=== PATIENT | female | born 1955 | race Hispanic/Latino ===

== ENCOUNTER 2016-06-14 09:13 | Emergency (ER) | payer MEDICARE, OTHER ==
[~2016-06-14 09:13] MED LIST: ASPI-973 PO; BUPR150T12 PO; CARV25TA2 PO; GABA-500 PO; INSU100C8 SUBQ; INSU100V7 SUBQ; LEVO50TA6 PO; MECL-114 PO; MONT10TA23 PO; NORT25CA PO; OMEP20CA11 PO; PARO40TA3 PO; PROC5TAB PO; ROPI0.252 PO; ROSU40TA PO; SEVE800T10 PO
[2016-06-14 09:17] VITALS: BP 142/58; PULSE 91; RESP 24; O2SAT 88
--- NOTE | 2016-06-14 09:40 | ED.REPORT ---
HPI-Headache Date of Service Jun 14, 2016 ED Provider: Carlos Ulrich MD Ms. 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 She presents with her who aids her in completing the subjective history of present illness. She reports uncontrollable tongue biting on the right lateral portion of her tongue since October. Since then she has lived with the pain up until 10 days ago, at which point she states that the pain is now 10 out of 10 and has migrated over the course of those 10 days to her right side of her face, ear and temporal region. She states the entire area is very tender to the touch. She describes the pain as 10 out of 10, sharp and constant. She denies fevers, chills, nausea, vomiting, chest pain, abdominal pain, constipation diarrhea. She reports nagging cough for 2 weeks, mild shortness of breath, and increased pain on the right side of her head. Of note she states that she did have a fall where she hit the right side of her head roughly 10 days ago, however she states that the pain was present before the fall. She receives dialysis Saturday and Saturday, has cardiology appointment with Dr. Lawler's office today, and pulmonology in [place] tomorrow , and is due to see the neurologist on the . Nursing Notes Stated Complaint: R SIDE FACE PAIN/COUGH Chief Complaint: General Complaint Nursing Notes Reviewed: Yes Allergies: Coded Allergies: codeine (Verified Allergy, Mild, 06/14/16) hydrocodone (Verified Allergy, Unknown, 06/14/16) Scheduled Aspirin (Aspirin) 81 Mg Tablet 81 MG PO DAILY Bupropion ER (Bupropion ER) 150 Mg Tablet.er 150 MG PO BID Carvedilol (Carvedilol) 25 Mg Tablet 25 MG PO BID Gabapentin (Gabapentin) 100 Mg Capsule 100 MG PO DAILY Insulin Glargine (Lantus U100 Insulin Vial) 100 Unit/Ml Vial 28 UNIT SUBQ HS Levothyroxine (Levothyroxine) 50 Mcg Tablet 50 MCG PO DAILY Montelukast (Montelukast) 10 Mg Tablet 10 MG PO HS Nortriptyline (Nortriptyline) 25 Mg Capsule 25 MG PO HS Omeprazole (Omeprazole) 20 Mg Capsule.dr 20 MG PO DAILY Paroxetine (Paroxetine) 40 Mg Tablet 40 MG PO HS Ropinirole (Ropinirole) 0.25 Mg Tablet 0.25 MG PO TID Rosuvastatin Calcium (Crestor) 40 Mg Tablet 40 MG PO DAILY Sevelamer HCl (Renagel) 800 Mg Tablet 800 MG PO TID Scheduled PRN Prochlorperazine Maleate (Prochlorperazine) 5 Mg Tablet 5 MG PO Q8 PRN PRN For Nausea/Vomiting Miscellaneous Medications Insulin Aspart (NovoLOG U100 Insulin Vial) 100 U/Ml U 1 UNIT SUBQ Meclizine (Bonine) 25 Mg Tab.chew 25 MG PO General Time Seen by MD: 09:10 Chief Complaint Headache, Other (cough) Sudden in Onset?: No Onset Occurred: More than a week ago... (2 weeks) Past Medical History Smoking History Former Smoker Review of Systems A comprehensive review of systems was conducted with the patient and found to be negative except as above in the History of Present Illness. Physical Exam General: Elderly lady lying in bed in moderate distress, obese, well-nourished, appropriately interactive HEENT: Normocephalic, atraumatic. Right temperal region, lower right mandibular region, right zygomatic arch all very tender to palpation. External ears without defect. Pupils equal, round, and reactive to light and accommodation. Anicteric sclerae, moist conjunctivae, and no lid lag. Oropharynx free of erythema and cobble stoning with moist mucosa. Vision loss in left eye. Right sided glossal lesion, anterior roughly the size of a BB with equal depth very tender to palpation. Neck: Supple with full range of motion. No jugular venous distension. No bruits. No lymphadenopathy or thyromegaly. Cardiovascular: Tachycardic rate and rhythm with no murmurs, rubs, or gallops appreciated Pulmonary: Clear to auscultation bilaterally with no crackles, or rhonchi. Very mild wheezes present. Normal respiratory effort with no use of accessory muscles.Cough present. Abdomen: Bowel tones present. Soft, nontender, nondistended. No hepatosplenomegaly or masses appreciated. Extremities: No clubbing, cyanosis, edema, or lymphadenopathy appreciated. Skin: Normal temperature, turgor, and texture; no rash, ulcers, or subcutaneous nodules appreciated. Neurological: Cranial nerves grossly intact. Normal muscle strength, tone, and bulk. Patient suffers from an unspecified dyskinesia 2nd to Reglan side- effect. Psychiatric: Normal mood and affect. Alert and oriented to person, place, and time. Initial Vital Signs Vital Signs (First) Date Time Temp Pulse Resp B/P Pulse Ox O2 Delivery O2 Flow Rate FiO2 06/14/16 09:17 36.3 91 24 142/58 88 Room Air 06/14/16 10:07 1 Interpretation & Diagnostics Lab Results Interpretation Result Diagram: 06/14/16 1000 06/14/16 1140 Test 06/14/16 10:00 06/14/16 11:40 White Blood Count 11.8th/mm3 (3.8-10.1) Red Blood Count 4.83mil/mm3 (3.90-5.20) Hemoglobin 12.8g/dL (12.0-15.6) Hematocrit 39.0% (35.0-46.0) Mean Corpuscular Volume 80.7fL (81-100) Mean Corpuscular Hemoglobin 26.5pg (27.0-35.0) Mean Corpuscular Hemoglobin Concent 32.8% (32.0-37.0) Red Cell Distribution Width 17.3% (12.3-15.4) Platelet Count 170bil/L (150-400) Neutrophils (%) (Auto) 79.8% (40-74) Lymphocytes (%) (Auto) 12.6% (14-46) Monocytes (%) (Auto) 6.7% (4-12) Eosinophils (%) (Auto) 0.5% (0-5) Basophils (%) (Auto) 0.1% (0-3) Erythrocyte Sedimentation Rate 9mm/hr (0-40) Hold Eaton Top Tube Received (Received) Sodium Level 133mEq/L (134-144) Potassium Level 4.0mEq/L (3.5-5.2) Chloride Level 93mEq/L (97-108) Carbon Dioxide Level 24mmol/L (18-29) Blood Urea Nitrogen 16mg/dL (8-27) Creatinine 2.48mg/dL (0.57-1.00) Estimat Glomerular Filtration Rate 28mL/min (>59) Glucose Level 123mg/dL (60-99) Calcium Level 8.7mg/dL (8.5-10.1) Re-Eval/Medical Decision Med Decision/Clinical Course Ms. 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 On physical exam patient exhibited severe tenderness to palpation on her temporal region on the right mandibular region on the right zygomatic on the right the right side of her tongue. Differential diagnosis includes: Subarachnoid hemorrhage, infectious etiology from nonhealing glossal wound, temporal arteritis, mass effect, irregular rate, neuropathic pain, traumatic etiology. CBC, BMP, ESR, IV fluids, CT head without contrast, 10 dexamethasone, 30 Toradol , 675 acetaminophen, 10 IV Benadryl. After treatments patient feels drowsy but the pain is between 2 and 5 out of 10, she states it is tolerable. CT head without contrast was negative for intracranial abnormalities. And her sedimentation rate was normal. Her white count is only partially elevated at 11.8 with a minor left shift 79.8. Her vitals are all within normal limits. These findings do not suggest active infection, temporal arteritis, subarachnoid hemorrhage. This is reassuring now that her vitals are stable and subjectively her pain has been treated with believe she is safe to go home. Her primary care physician Dr. Burks suggested Tylenol 3 for home use however she has a codeine allergy. Advised to follow-up with primary care physician and was given detailed return instructions if symptoms worsen. Discharge & Departure Impression: Primary Impression: Headache Headache type: unspecified Headache chronicity pattern: unspecified pattern Intractability: not intractable Qualified Code: R51 - Headache Disposition: Home Discharge Condition All VS Reviewed: Yes Condition: Stable Patient Instructions: Acute Headache (ED) Additional Instructions: During your visit to [facility] Emergency Department we obtained blood work for infectious markers, hemoglobin levels, and electrolytes. We also obtained high resolution imaging of your brain. All your lab values were within normal limits and your imaging showed no acute processes or abnormalities. During your emergency department visit you were treated with IV steroids dexamethasone, IV diphenhydramine (Benadryl), IV Toradol for inflammation, 675 mg Tylenol by mouth. Your vitals are stable and we believe it is safe for you to go home. If your headache worsens in anyway, or you pass out, have vision changes, fever and chills, call emergency services or contact your primary care physician for further care. Do not hesitate to call emergency services or your primary care physician if you experience any of the following. -High unrelenting fevers. -Uncontrolled vomiting. -Severe hypertension. -Syncope or loss of consciousness. -Chest pain or severe shortness of breath. Follow up with your primary care physician in 1-2 weeks time following your emergency department visit for medication checks and general well-being. Referrals: Neal Burks MD (PCP) Attending Statement The patient was seen and examined together with Dr. Sarmiento on 06/14/16 and I agree with the history, exam and plan as outlined in the note above. copies to: Neal Burks MD, COREY P DO Jun 14, 2016 09:40 Carlos Ulrich MD Jun 14, 2016 20:36
[2016-06-14] MEDS ORDERED: 0.9% Sodium Chloride 1,000 ML IV ONE (09:57)
[2016-06-14] MEDS ORDERED: Dexamethasone 10 mg/mL Inj IVPUSH ONE (10:00)
[2016-06-14 10:07] VITALS: BP 129/61; PULSE 90; RESP 18; O2SAT 97
[2016-06-14 10:09] VITALS: BP 129/61; PULSE 90; RESP 18; O2SAT 96
[2016-06-14 10:46] LABS: BASOPHILS % (AUTO) 0.1 % (0-3); EOSINOPHILS % (AUTO) 0.5 % (0-5); MONOCYTES % (AUTO) 6.7 % (4-12); Mean Corpuscular Hemoglobin 26.5 pg (27.0-35.0); Mean Corpuscular Volume 80.7 fL (81-100); NEUTROPHILS % (AUTO) 79.8 % (40-74); Platelet Count 170 bil/L (150-400)
--- NOTE | 2016-06-14 10:59 | DRSVH ---
PROCEDURE: CT BRAIN WITHOUT CONTRAST ([id number]) INDICATIONS: Headache TECHNIQUE: Noncontrast 4.5 mm thick angled axial sections acquired from the foramen magnum to the vertex, with c oronal reformats. COMPARISON: None. FINDINGS: Image quality: Significantly limited secondary to patient motion. CSF spaces: Basal cisterns are patent. No extra-axial fluid collections. Ventricles are normal in size and shape. Brain: No midline shift. No intracranial masses or hemorrhage. Tran-white matter interface is norm al. Skull and face: Calvarium and visualized facial bones are intact, without suspicious lesions. Sinuses: Visualized sinuses and mastoids are clear. IMPRESSION: No gross acute intracranial disease process within limitations related to patient motion . Dictated by: Shannon Borden MD, PhD on 06/14/2016 at 10:56 Approved by: Shannon Borden MD, PhD on 06/14/2016 at 10:57
[2016-06-14 11:28] LABS: ERYTHROCYTE SEDIMENTATION RATE 9 mm/hr (0-40)
[2016-06-14 12:42] VITALS: BP 123/91; PULSE 99; RESP 20; O2SAT 92
[2016-06-14 12:44] VITALS: BP 123/91; PULSE 99; RESP 20; O2SAT 92
== END 2016-06-14 12:03 | disposition home or self-care (01) ==
LOC: SED 09:13
DX: R51 Headache (principal); R05 Cough; R06.02 Shortness of breath; E11.43 Type 2 diabetes mellitus with diabetic autonomic (poly)neuropathy; H40.9 Unspecified glaucoma; H54.12 Blindness, left eye, low vision right eye; E11.22 Type 2 diabetes mellitus with diabetic chronic kidney disease; N18.6 End stage renal disease; E88.81 Metabolic syndrome and other insulin resistance; R25.8 Other abnormal involuntary movements; Z99.2 Dependence on renal dialysis; Z87.891 Personal history of nicotine dependence; Z79.82 Long term (current) use of aspirin; Z79.4 Long term (current) use of insulin; Z88.5 Allergy status to narcotic agent
CPT/HCPCS: 36415; 70450; 80048; 85025; 85651; 96361; 96372; 96374; 96375; 99285; J1100; J1200; J7030

== ENCOUNTER 2016-06-15 09:35 | Emergency (ER) | payer MEDICARE, OTHER ==
[~2016-06-15] VITALS: Ht 160 cm; Wt 91.4 kg
[2016-06-15 09:36] VITALS: PULSE 87; RESP 15; O2SAT 96
--- NOTE | 2016-06-15 09:48 | ED.REPORT ---
HPI-General Illness Date of Service Jun 15, 2016 ED Provider: Dominic Bullock MD Pt is a 60 y/o female w/ a hx of hypothyroid, HTN, asthma, ESRD on hemodialysis (, , Sat), diabetes, presenting to the ED c/o bilateral lower rib pain secondary to a fall in shower last night. She has been experiencing a progressively worsening lower rib pain which is worse with inspiration ever since her fall. She c/o associated pleuritic pain, chronic SOB which is being evaluated by a it service delivery manager, chronic nausea on Reglan. Pt denies fever, chills , abdominal pain, vomiting, diaphoresis. She came in yesterday due to right sided headache which was radiating down her jaw and a CT brain yesterday was negative. Nursing Notes Stated Complaint: FALL Chief Complaint: Multiple Trauma/Fall Nursing Notes Reviewed: Yes Allergies: Coded Allergies: codeine (Verified Allergy, Mild, 06/14/16) hydrocodone (Verified Allergy, Unknown, 06/14/16) Scheduled Aspirin (Aspirin) 81 Mg Tablet 81 MG PO DAILY Bupropion ER (Bupropion ER) 150 Mg Tablet.er 150 MG PO BID Carvedilol (Carvedilol) 25 Mg Tablet 25 MG PO BID Gabapentin (Gabapentin) 100 Mg Capsule 100 MG PO DAILY Insulin Glargine (Lantus U100 Insulin Vial) 100 Unit/Ml Vial 28 UNIT SUBQ HS Levothyroxine (Levothyroxine) 50 Mcg Tablet 50 MCG PO DAILY Montelukast (Montelukast) 10 Mg Tablet 10 MG PO HS Nortriptyline (Nortriptyline) 25 Mg Capsule 25 MG PO HS Omeprazole (Omeprazole) 20 Mg Capsule.dr 20 MG PO DAILY Paroxetine (Paroxetine) 40 Mg Tablet 40 MG PO HS Ropinirole (Ropinirole) 0.25 Mg Tablet 0.25 MG PO TID Rosuvastatin Calcium (Crestor) 40 Mg Tablet 40 MG PO DAILY Sevelamer HCl (Renagel) 800 Mg Tablet 800 MG PO TID Scheduled PRN Prochlorperazine Maleate (Prochlorperazine) 5 Mg Tablet 5 MG PO Q8 PRN PRN For Nausea/Vomiting Miscellaneous Medications Insulin Aspart (NovoLOG U100 Insulin Vial) 100 U/Ml U 1 UNIT SUBQ Meclizine (Bonine) 25 Mg Tab.chew 25 MG PO General Time Seen by MD: 09:44 Chief Complaint Other (Rib pain) Hx Obtained From: Patient Arrived By: Walk-in Sudden in Onset?: Yes Onset Occurred: 9 - 12 hours ago Symptom Duration: Since onset Caused by: Fall on ground Location: : Chest (rib) Quality: Painful, Pleuritic Severity: Current: Moderate Severity: Maximum: Moderate Recent Healthcare: Recent doctor visit Past Medical History Past Medical History Hypothyroid Gastroparesis Hypertension Asthma ESRD on hemodialysis (, , Sat) Diabetes Chronic nausea on Reglan Tardive dyskinesia from chronic Reglan use Chronic shortness of breath Anxiety Depression Past Surgical History Cataract AV fistula Smoking History Former Smoker Social History Alcohol Use: Denies alcohol use Drug Use: Denies drug use Ambulatory Status Independent Review of Systems Full Review of Systems Constitutional: Denies: Chills, Fever Respiratory: Reports: Pleuritic pain, Shortness of breath Cardiovascular: Reports: Chest pain (rib) GI: Reports: Nausea, Denies: Abdominal pain, Vomiting Skin: Denies Diaphoresis Complete sys rev & neg: except as marked. Physical Exam Vital Signs Vital Signs Date Time Temp Pulse Resp B/P Pulse Ox O2 Delivery O2 Flow Rate FiO2 06/15/16 11:11 36.2 89 14 144/77 100 Room Air 06/15/16 09:36 35 87 15 96 Room Air Initial VS: Reviewed, Vital signs normal Head / Eyes: Atraumatic, Normocephalic, PERRL ENT: Mucous membranes moist, Conjunctiva normal, No scleral icterus Neck: Supple, Non-tender, Full range of motion Cardiovascular: Regular rate & rhythm, Heart sounds normal, Intact distal pulses Extremities: Vascular intact, Neuro intact, No swelling, No tenderness Skin: Warm, Dry, No cyanosis Neurologic: Alert, Oriented, Nonfocal Psychiatric: Mood/affect normal, Behavior normal, Normal thought content General/Constitutional: Awake, Alert, No acute distress, Cooperative, Not toxic appearing Appearance / Presentation: Positive: Obese, morbidly Respiratory / Chest: Atraumatic, Breath sounds NL, Breath sounds = bilat, No respiratory distress, No rales, No rhonchi, No wheezing, No retractions, No chest wall deformity Pain about costal margin Interpretation & Diagnostics ECG Interpretation ECG Interpretation: Sinus rhythm rate 87 Anterior Q waves No prior EKG available for comparison Time: 10:38 Interpreted by: ED physician Normal ECG Interpretation: No acute ischemic changes, Normal axis, Normal intervals X-Ray Chest Interpretation Chest Xray Interpretation: IMPRESSION: Small pleural effusions and mid/basilar airspace opacities consistent with compressive atelectasis or pneumonia. Correlate clinically. Dictated by: Jc Hernandez RRA Interpreted: Shannon Borden MD on 06/15/2016 at 11:09 Transcribed by: ELVIA on 06/15/2016 at 11:11 View: Portable, AP & lat Interpretation / Wet Read by: Interpret - Radiologist Re-Eval/Medical Decision Med Decision/Clinical Course Pt is a 60 y/o female w/ a hx of hypothyroid, HTN, asthma, ESRD on hemodialysis (, , Sat), diabetes, presenting to the ED c/o bilateral lower rib pain secondary to a fall in shower last night. Upon arrival patient was afebrile stable vital signs in no apparent distress. She has reproducible pain upon palpation of her lateral ribs on both sides. Presentation most consistent with musculoskeletal etiology. She is without tachycardia or hypoxia and the nature of her presentation is not suggestive of acute pulmonary embolism. Her over, she has no calf swelling or tenderness suggestive of DVT. I do not feel that workup for pulmonary embolism is indicated at this time. Her history and presentation is unconvincing for acute coronary syndrome as a cause of her pain and I do not feel that cardiac workup is immediately indicated. Screening EKG did not demonstrate any acute ischemic changes. Chest x-ray was obtained as above and demonstrated markedly decreased lung volumes with significant right fatty tissue. She did have atelectasis but there is no obvious focal consolidation and she was without cough, fever, chills or other symptoms suggestive of pneumonia. Her nausea was treated with Zofran and she was given Tylenol for pain. She reports improvement. At this time I feel she is appropriate for discharge home. She has not been advised to sit up in bed, take deep breaths and take Tylenol as needed for pain. Follow-up and return precautions were reviewed in detail and she was discharged in good condition. Source of Hx: Old records Time of Eval: 11:16 Patient Status: Condition improved, Pain improved Re-Evaluation/Progress Note: Pt rechecked. Discussed negative imaging results. Informed pt of plan for treatment. Pt understands and agrees with plan for treatment. F/U and RTER warnings given. All questions addressed. Counseled Regarding: Diagnosis, Need for follow-up, When/why to return to ED Discharge & Departure Primary Impression: Musculoskeletal chest pain Additional Impressions: Fall from ground level End-stage renal disease on hemodialysis Bilateral pleural effusion Disposition: Home Discharge Condition All VS Reviewed: Yes Condition: Stable Patient Instructions: Chest Pain (ED), Pleural Effusion (ED) Additional Instructions: Thank you for seeking care at emergency room. It is difficult for us to make definitive diagnoses in the ED but we believe that you are experiencing musculoskeletal chest pain which may be related to your pleural effusions. Our primary goal today in the ED was to evaluate you for any life-threatening conditions. Your evaluation was reassuring. There was no signs of rib fracture on the chest x-ray. Keep your follow-up appointment with your Attenuator today. Discuss today's visit at that time. You should return to the ED immediately if you develop fevers, vomiting, cough, worsening shortness of breath, worsening chest pain, profuse sweating, lightheadedness, weakness or any other concerning signs or symptoms. Thank you for letting us partake in your care today. Referrals: Neal Burks MD (PCP) Scribe Attestation Portions of this note were transcribed by Bernabe Daniel. I, Dr. Bullock personally performed the history, physical exam and medical decision-making; I reviewed and confirmed the accuracy of the information in the transcribed note. Signed by Kiel Burr, 06/15/16 - 1100 copies to: Neal Burks MD, Beck O MD Jun 15, 2016 09:48 BERNABE DANIEL Jun 15, 2016 09:53 BERNABE DANIEL Jun 15, 2016 09:53
[2016-06-15] MEDS ORDERED: Ondansetron 8 mg ODT Tablet PO ONE (11:00)
[2016-06-15 11:11] VITALS: BP 144/77; PULSE 89; RESP 14; O2SAT 100
--- NOTE | 2016-06-15 11:11 | DRSVH ---
PROCEDURE: X-RAY CHEST, TWO VIEWS ([id number]) INDICATIONS: rib pain/fall TECHNIQUE: 2 views of the chest were acquired. COMPARISON: [facility], CR, XR CHEST 2VW, 03/20/2016, 11:07. FINDINGS: Surgical changes and devices: None. Lungs and pleura: Lung volumes are low and there is mid/basilar bilateral airspace opacities. Small pleural effusions bilaterally. No pneumothorax. Mediastinum: Mediastinal contours are normal. Heart size is normal. Bones and chest wall: No suspicious bony abnormalities. Soft tissues appear unremarkable. IMPRESSION: Small pleural effusions and mid/basilar airspace opacities consistent with compressive at electasis or pneumonia. Correlate clinically. Dictated by: Jc Hernandez RRA Interpreted: Shannon Borden MD on 06/15/2016 at 11:09 Transcribed by: ELVIA on 06/15/2016 at 11:11 Approved by: Shannon Borden MD, PhD on 06/15/2016 at 16:45
[2016-06-15 12:04] VITALS: BP 144/77; PULSE 89; RESP 14; O2SAT 100
== END 2016-06-15 12:04 | disposition home or self-care (01) ==
LOC: SED 09:35
DX: R07.89 Other chest pain (principal); N18.6 End stage renal disease; J90 Pleural effusion, not elsewhere classified; W18.2XXA Fall in (into) shower or empty bathtub, initial encounter; Y93.E1 Activity, personal bathing and showering; Y92.9 Unspecified place or not applicable; Y99.8 Other external cause status; E03.9 Hypothyroidism, unspecified; I12.0 Hypertensive chronic kidney disease with stage 5 chronic kidney disease or end stage renal disease; J45.909 Unspecified asthma, uncomplicated; E11.43 Type 2 diabetes mellitus with diabetic autonomic (poly)neuropathy; K31.84 Gastroparesis; Z87.891 Personal history of nicotine dependence; Z88.5 Allergy status to narcotic agent; Z99.2 Dependence on renal dialysis; Z79.82 Long term (current) use of aspirin; Z79.4 Long term (current) use of insulin
CPT/HCPCS: 71020; 93005; 99284; G0463

== ENCOUNTER 2016-10-30 10:10 | Inpatient (IN) | payer MEDICARE, OTHER ==
[2016-10-30] VITALS (9 sets, daily range): BP systolic 132–171; BP diastolic 70–93; PULSE 64–99; RESP 17–25; O2SAT 88–99
[~2016-10-30] VITALS: Ht 160 cm; Wt 78.2 kg
--- NOTE | 2016-10-30 10:27 | ED.REPORT ---
HPI-General Illness Date of Service Oct 30, 2016 ED Provider: Galindo Valle Pt is a 60 y/o female w/ a hx of hypothyroid, HTN, asthma, ESRD on hemodialysis (, , Sat), diabetes, presenting to the ED due to diffuse itching and dyscinesia for the past month. C/o associated chronic cough. She has been on dialysis for [address] [place] in [place]. He has given her medication for itching including Benadryl, nasal spray and Nanci, none of which have been effective. The patient hasn't been sleeping due to itchiness. She denies abdominal pain, rash, or any other medication change. Nurses are unable to get a blood pressure because she is itching so much. She uses [facility] pharmacy in [facility]. Nursing Notes Stated Complaint: ITCHING, COUGHING Chief Complaint: General Complaint Nursing Notes Reviewed: Yes Allergies: Coded Allergies: codeine (Verified Allergy, Mild, 06/14/16) hydrocodone (Verified Allergy, Unknown, 06/14/16) Scheduled Aspirin (Aspirin) 81 Mg Tablet 81 MG PO DAILY Bupropion ER (Bupropion ER) 150 Mg Tablet.er 150 MG PO BID Carvedilol (Carvedilol) 25 Mg Tablet 25 MG PO BID Gabapentin (Gabapentin) 100 Mg Capsule 100 MG PO DAILY Insulin Glargine (Lantus U100 Insulin Vial) 100 Unit/Ml Vial 28 UNIT SUBQ HS Levothyroxine (Levothyroxine) 50 Mcg Tablet 50 MCG PO DAILY Montelukast (Montelukast) 10 Mg Tablet 10 MG PO HS Nortriptyline (Nortriptyline) 25 Mg Capsule 25 MG PO HS Omeprazole (Omeprazole) 20 Mg Capsule.dr 20 MG PO DAILY Paroxetine (Paroxetine) 40 Mg Tablet 40 MG PO HS Ropinirole (Ropinirole) 0.25 Mg Tablet 0.25 MG PO TID Rosuvastatin Calcium (Crestor) 40 Mg Tablet 40 MG PO DAILY Sevelamer HCl (Renagel) 800 Mg Tablet 800 MG PO TID Scheduled PRN Prochlorperazine Maleate (Prochlorperazine) 5 Mg Tablet 5 MG PO Q8 PRN PRN For Nausea/Vomiting Miscellaneous Medications Insulin Aspart (NovoLOG U100 Insulin Vial) 100 U/Ml U 1 UNIT SUBQ Meclizine (Bonine) 25 Mg Tab.chew 25 MG PO General Time Seen by MD: 10:22 Chief Complaint Other (itching) Hx Obtained From: Patient, Spouse Arrived By: Walk-in Sudden in Onset?: Yes Onset Occurred: More than a week ago... (1 month) Symptom Duration: Since onset Severity: Current: No pain currently Associated with: Reports: Cough, Itching Pertinent Negative: Pt denies other symptoms Recent Healthcare: Recent doctor visit Similar Sx Previous: Yes Past Medical History Past Medical History Hypothyroid Gastroparesis Hypertension Asthma ESRD on hemodialysis (, , Sat) Diabetes Chronic nausea on Reglan Tardive dyskinesia from chronic Reglan use Chronic shortness of breath Anxiety Depression Past Surgical History Cataract AV fistula Smoking History Former Smoker Social History Alcohol Use: Denies alcohol use Drug Use: Denies drug use Ambulatory Status Independent Review of Systems dyscinesia Full Review of Systems Respiratory: Reports: Non-productive cough GI: Denies: Abdominal pain Skin: Reports Itching, Denies Rash Allergy / Immune: Reports: Itching Complete sys rev & neg: except as marked. Physical Exam Vital Signs Vital Signs Date Time Temp Pulse Resp B/P Pulse Ox O2 Delivery O2 Flow Rate FiO2 10/30/16 15:56 94 24 151/70 99 Nasal Cannula 2 10/30/16 12:20 8 10/30/16 10:41 95 20 132/93 88 Room Air 10/30/16 10:20 36.4 Initial VS: Reviewed General/Constitutional: Awake, Alert Appearance / Presentation: Positive: Obese Head / Eyes: Atraumatic, Normocephalic, PERRL, EOMI Respiratory / Chest: Atraumatic, No respiratory distress Cardiovascular: Heart rate NL, Regular rhythm, Heart sounds NL Abdomen: Atraumatic, Soft, Non-tender Upper Extremities Upper Extremity / MS: Atraumatic, Neurologic intact right upper arm AV fistula Lower Extremity / Pelvis / MS: Atraumatic, Inspection NL, No deformity Skin: No rash tardive dyscinesia itching everywhere no rash in fingerwebs or skin Neurologic: Oriented X3, Speech NL Interpretation & Diagnostics Lab Results Interpretation Result Diagram: 10/30/16 1042 10/30/16 1050 Test 10/30/16 10:42 10/30/16 10:50 6/20/17 15:22 White Blood Count 5.5th/mm3 (3.8-10.1) Red Blood Count 4.50mil/mm3 (3.90-5.20) Hemoglobin 12.1g/dL (12.0-15.6) Hematocrit 37.4% (35.0-46.0) Mean Corpuscular Volume 83.1fL (81-100) Mean Corpuscular Hemoglobin 26.9pg (27.0-35.0) Mean Corpuscular Hemoglobin Concent 32.4% (32.0-37.0) Red Cell Distribution Width 18.0% (12.3-15.4) Platelet Count 163bil/L (150-400) Neutrophils (%) (Auto) 51.4% (40-74) Lymphocytes (%) (Auto) 31.5% (14-46) Monocytes (%) (Auto) 15.8% (4-12) Eosinophils (%) (Auto) 0.7% (0-5) Basophils (%) (Auto) 0.4% (0-3) Sodium Level 131mEq/L (134-144) Potassium Level 3.3mEq/L (3.5-5.2) Chloride Level 90mEq/L (97-108) Carbon Dioxide Level 26mmol/L (18-29) Blood Urea Nitrogen 22mg/dL (8-27) Creatinine 2.66mg/dL (0.57-1.00) Estimat Glomerular Filtration Rate 26mL/min (>59) Glucose Level 69mg/dL (60-99) Calcium Level 9.0mg/dL (8.5-10.1) Total Bilirubin 1.9mg/dL (0.0-1.2) Aspartate Amino Transf (AST/SGOT) 38U/L (0-50) Alanine Aminotransferase (ALT/SGPT) 21U/L (0-32) Alkaline Phosphatase 512U/L (25-165) Total Protein 7.3g/dL (6.4-8.4) Albumin 3.7g/dL (3.4-5.0) Troponin T 0.121ug/L (0.0-0.011) ECG Interpretation ECG Interpretation: left atrial enlargement nonspecific T abnormalities Time: 13:00 Interpreted by: ED physician Normal ECG Interpretation: Normal sinus rhythm (rate 91) X-Ray Chest Interpretation Chest Xray Interpretation: IMPRESSION: Subpulmonic left pleural effusion, small in overall size. Bibasilar atelectasis. Heart size at the upper limits of normal (but is not enlarged).. Dictated by: Chris Haynes M.D. on 10/30/2016 at 11:57 Approved by: Chris Haynes M.D. on 10/30/2016 at 11:58 View: Portable Interpretation / Wet Read by: Interpret - Radiologist CT Chest Interpretation IMPRESSION: Suboptimal study due to respiratory motion artifact. Within this constraint, no definite pulmonary embolism identified. Bilateral pleural effusions, left greater the right with adjacent atelectasis. Subpleural, subcentimeter nodular focus probably nodular scarring in the right upper lobe although technically indeterminate. Recommend followup with noncontrast chest CT in 6 months to exclude metastatic/malignant possibilities. Cardiomegaly and CT evidence of decreased cardiac output. Additional chronic and incidental findings as above. Dictated by: Rios Welsh M.D. on 10/30/2016 at 15:19 Approved by: Rios Welsh M.D. on 10/30/2016 at 15:36 Study type: Chest CT w contrast Interpretation / Wet Read by: Interpret - Radiologist Re-Eval/Medical Decision Med Decision/Clinical Course Patient presents with a chronic cough (which has been previously worked up) and new onset pruritus for 1 month. Initial diagnostic evaluation included a CMP to look for uremia and hyperbilirubinemia. She does have mild elevation of her bilirubin without right upper quadrant pain of unclear significance. However, during the course of her ER visit she continued to be hypoxic at 88%, this was confirmed with ABG. Her hypoxia prompted a more resource intensive workup which included CT angio of the chest, and a troponin and EKG to look for both pulmonary embolism and silent ischemia. The family and the patient made no mention of the fact that she was recently prescribed home oxygen. The patient has had significantly elevated troponins while in the ER, unclear whether this represents acute coronary syndrome, signs of heart strain from congestive heart failure, or simply not previously documented elevated troponin. In terms of symptom management, the patient received 0.5 mg of Ativan, a dose of viscous lidocaine, Tessalon Perles, and a dose of nebulized lidocaine which resolved both her pruritus and her cough. Her hypoxia was fixed with 2 L of oxygen via nasal cannula however she continued to exhibit tardive dyskinesia, which is chronic. Given the findings of elevated troponin, records were reviewed, it does appear that the patient's primary electron beam operator is planning to do a provocative stress test soon. I consulted the electron beam operator control operator who recommends admitting the patient, trending troponins, getting an echocardiogram and stress test. Patient will be admitted. Time of Eval: 11:36 Patient Status: Condition improved, Moderate relief Re-Evaluation/Progress Note: Pt rechecked. Her itching is slightly improved and she has calmed down a little bit. Time of Eval: 11:51 Patient Status: Condition improved, Moderate relief Re-Evaluation/Progress Note: Pt rechecked. She is coughing more after GI cocktail. Itching is still improved. Time of Eval: 12:35 Patient Status: Condition improved, Complete relief Re-Evaluation/Progress Note: Pt rechecked. Her itching is resolved after nebulized lidocaine. Consultation : Referral / Consult Name: Suresh Hidalgo MD Consulted With: Cardiology Call Returned at: 16:30 Note: suggests admission, trending troponins, echo and stress test in AM. Counseled Regarding: Diagnosis, Lab results Discharge & Departure Shift Change Sign-Out Awt acceptance from hospitalist and nephrology consult Primary Impression: Elevated troponin Additional Impressions: ESRD (end stage renal disease) on dialysis Bilateral pleural effusion Generalized pruritus Hypoxia Disposition: ADMITTED TO HOSPITAL Discharge Condition All VS Reviewed: Yes Condition: Stable Referrals: Neal Burks MD (PCP) Care Transferred to: [facility] Transferred at: 16:50 Crit Care Except Billable Proc Time Spent: 30-74 minutes Services Performed: Patient management by me, Time spent at bedside, Reviewing test results Critical Care Notes: See MDM Scribe Attestation Portion of this note were transcribed by Ana Jenkins. I, Dr. Valle, personally performed the history, physical exam, and medical decision-making: I reviewed and confirmed the accuracy for the information in the transcribed note. Signed by: tate Meza, 10/30/16 1500 copies to: Neal Burks MD, Timothy S DO Oct 30, 2016 10:27 Ana Jenkins Oct 30, 2016 10:33
[2016-10-30] MEDS ORDERED: hydrOXYzine Pamoate 25 mg Capsule PO ONE ×2 (10:40→11:05)
[2016-10-30] MEDS ORDERED: LORazepam 0.5 mg Tablet PO ONE (10:40)
--- NOTE | 2016-10-30 12:00 | DRSVH ---
PROCEDURE: X-RAY CHEST, TWO VIEWS ([id number]) INDICATIONS: cough TECHNIQUE: 2 views of the chest were acquired. COMPARISON: [facility], CR, XR CHEST 2VW, 09/11/2016, 11:25. [facility], CR , XR CHEST 2VW, 06/15/2016, 10:48. FINDINGS: Surgical changes and devices: None. Lungs and pleura: No pneumothorax. Lungs are abnormal with a chronic mild interstitial prominence a nd mild left lower lobe alveolar opacification with a small subpulmonic pleural effusion on the left. Mediastinum: Mediastinal contours are normal. Heart size is at the upper limits of normal, previous ly the case. This may be simply secondary to reduced inspiration and body habitus.. Bones and chest wall: No suspicious bony abnormalities. Soft tissues appear unremarkable. IMPRESSION: Subpulmonic left pleural effusion, small in overall size. Bibasilar atelectasis. Heart size at the upper limits of normal (but is not enlarged).. Dictated by: Chris Haynes M.D. on 10/30/2016 at 11:57 Approved by: Chris Haynes M.D. on 10/30/2016 at 11:58
[2016-10-30] MEDS ORDERED: Lidocaine PF 2% 5 mL Inhalation Solution INHALATION ONE (12:10)
[2016-10-30] MEDS ORDERED: MethylprednisoLONE Sodium Succinate 62.5 mg/mL 2 mL Inj IVPUSH ONE (12:10)
[2016-10-30 12:18] LABS: BASOPHILS % (AUTO) 0.4 % (0-3); EOSINOPHILS % (AUTO) 0.7 % (0-5); MONOCYTES % (AUTO) 15.8 % (4-12); Mean Corpuscular Hemoglobin 26.9 pg (27.0-35.0); Mean Corpuscular Volume 83.1 fL (81-100); NEUTROPHILS % (AUTO) 51.4 % (40-74); Platelet Count 163 bil/L (150-400)
--- NOTE | 2016-10-30 12:26 | ABG ---
DateTimeAnalyzed 12:19:01 -_ pH ____7.440 - 7.350 7.450 pCO2 ___41.3__ -mmHg 35.0 45.0 pO2 ___55.8__ -mmHg 69.0 116 HCO3- ___28.0__ -mmol/L 22.0 26.0 ABE ____3.5__ -mmol/L tHb ___12.5__ -g/dL O2Hb ___87.9__ -% COHb ____1.9__ -% 1.5 MetHb ____0.0__ -% sO2 ___88.9__ -% FIO2 ___21.0__ -% Drawn By jj - Date/Time Notified____ 12:26:00 -_ Notified By jj - Notified Whom dr okelley - K+ ____3.4__ -mmol/L tO2 ___15.4__ -Vol% Luis test _Positive -
--- NOTE | 2016-10-30 15:37 | DRSVH ---
PROCEDURE: CT ANGIO CHEST PULMONARY EMBOLISM ([id number]) INDICATIONS: hypoxia TECHNIQUE: After the administration of intravenous contrast, 2 mm thick sections acquired from the pulmonary api terence to the posterior costophrenic angles. 3-dimensional maximum intensity projection (MIP) coronal a nd sagittal reformats were then acquired through the thorax. For radiation dose reduction, the follo wing was used: automated exposure control, adjustment of mA and/or kV according to patient size. COMPARISON: None. FINDINGS: Image quality: Degraded by motion artifact. Pulmonary arteries: Pulmonary arteries are normal in size, and demonstrate no intraluminal filling d efects to suggest central pulmonary embolism. Lungs and pleura: Decreased lung volumes. Moderate left and small right pleural effusions with adjac ent atelectasis. No pneumothorax. The central airways are grossly patent. Presumed subpleural scarrin g image 21 series 8 in the right upper lobe measuring 5 mm. Mediastinum: Heart size is enlarged, without pericardial effusion. No mediastinal or hilar adenopat hy. Thoracic aorta is normal in caliber and enhancement. Esophagus is normal in caliber, without hi atal hernia. Bones and chest wall: No suspicious bony lesions. Multiple right rib fractures although subacute/chr onic given callus formation. Thyroid gland not well-seen otherwise negative. No axillary or supracla vicular adenopathy. Abdomen: Visualized upper abdominal solid organs appear normal in the early arterial phase of enhanc ement. There is reflux of contrast into the hepatic veins in keeping with decreased cardiac output IMPRESSION: Suboptimal study due to respiratory motion artifact. Within this constraint, no definite pulmonary em bolism identified. Bilateral pleural effusions, left greater the right with adjacent atelectasis. Subpleural, subcentimeter nodular focus probably nodular scarring in the right upper lobe although te chnically indeterminate. Recommend followup with noncontrast chest CT in 6 months to exclude metastat ic/malignant possibilities. Cardiomegaly and CT evidence of decreased cardiac output. Additional chronic and incidental findings as above. Dictated by: Rios Welsh M.D. on 10/30/2016 at 15:19 Approved by: Rios Welsh M.D. on 10/30/2016 at 15:36
[2016-10-30] MEDS ORDERED: Ondansetron 2 mg/mL 2 mL Inj IVPUSH PRN (17:35)
[2016-10-30] MEDS ORDERED: Senna-Docusate 8.6-50 mg Tablet PO PRN (17:35)
[2016-10-30] MEDS ORDERED: Polyethylene Glycol (PEG) 17 Gm Powder PO PRN (17:35)
--- NOTE | 2016-10-30 18:28 | NUR ---
Admit MPC rm [id number] from ED A&O pt arrived to unit via stretcher at 1805. IVx2 patent. Pt states to have had a BM this AM. Has a fistula in NETTA. Goes to dialysis on . Had it done prior to coming to the ED today. Has been getting dialysis since 05/25 Pt states is her caregiver 100% of the time d/t dyskinesia r/t Reglan. Strength in all extremities seems equal, although stability of LE unsure, pt states she's had many falls recently, last one couple weeks ago "my legs just give out". RN asked MD for PT eval. VSS. Admit complete-MED REC not yet. MD to see pt. Pt oriented to room and facility. Denies having questions. States that she would rather have gone home. Bed in low position, upper rails up, call light in reach. Will continue to monitor.
[2016-10-30 18:32] LABS: TROPONIN T 0.131 ug/L (0.0-0.011)
--- NOTE | 2016-10-30 18:35 | PCM.HPMED ---
Subjective Date of Service Oct 30, 2016 Primary Provider: Admitting Physician: Archie Astorga DO Primary Care Physician: Neal Burks MD Attending Physician: Archie Astorga DO Chief Complaint: Shortness of breath and itching History of Present Illness: Patient is a 61-year-old female past medical history significant for hypothyroidism, hypertension, asthma, end-stage renal disease on hemodialysis, diabetes mellitus type II, and less clear diagnosis of some type of pulmonary disease which has currently led to her requiring supplemental oxygen in addition to an progressive elevation of her bilirubin which is yet been undiagnosed. Patient presented emergency department this morning complaining of diffuse itching and dyspnea condition a chronic cough which finally led to her seeking medical assistance .She has been on dialysis for about 4 years now and is managed in [place] by Dr. Luther. Emergency department she was provided numerous when necessary medications including Benadryl intravenous steroids and swallowed anesthetics which aided in symptoms of itching and cough however she was additionally found to be hypoxic, with an elevation of her troponins which prompted further consultation with cardiology. In the setting of renal disease she did not appear patient was having an acute coronary syndrome, however it was learned that she was past due for a cardiac stress test and on the recommendation of Dr. Martinez patient was admitted for further monitoring for known cardio vascular disease and further evaluation including cardiac stress test and echocardiogram to determine if cardiac cause is playing a role in patient's current symptoms. Her itching certainly may be related to bilirubin elevation, which is again is lacking a firm diagnosis. Patient notes she has been sleeping less specifically due to this itching, causing her significant amount of distress. provides more extensive history detailing recent events. Pt had been hoping for a renal transplant but her eligibility up to last year when her medical condition began to decline. Hypoxia a few months prior led to evaluation of lungs demonstrating pulmonary effusions. Cause remains unclear but she has had home oxygen prescribed as she has become persistent hypoxic. She also has had imaging studies of abdomen, unsure what type, which showed a liver mass. Her shipping clerk/admin has been working this up, and planned a F/ U MRCP currently scheduled for Saturday. During my evaluation patient is slightly short of best she denies overt chest pain and recalls no recent events of chest pain. She denies any fever chills or sweats. Denies overt abdominal pain, states she has been having normal bowel and bladder function. Review of Systems: A 10 point review of systems was conducted and entirely negative except for pertinent positives and negatives included above history of present illness Allergies Coded Allergies: codeine (Verified Allergy, Mild, 06/14/16) hydrocodone (Verified Allergy, Unknown, 06/14/16) Home Medications Aspirin (Aspirin) 81 Mg Tablet 81 MG PO DAILY Bupropion ER (Bupropion ER) 150 Mg Tablet.er 150 MG PO BID Carvedilol (Carvedilol) 25 Mg Tablet 25 MG PO BID Gabapentin (Gabapentin) 100 Mg Capsule 100 MG PO DAILY Insulin Glargine (Lantus U100 Insulin Vial) 100 Unit/Ml Vial 28 UNIT SUBQ HS Levothyroxine (Levothyroxine) 50 Mcg Tablet 50 MCG PO DAILY Montelukast (Montelukast) 10 Mg Tablet 10 MG PO HS Nortriptyline (Nortriptyline) 25 Mg Capsule 25 MG PO HS Omeprazole (Omeprazole) 20 Mg Capsule.dr 20 MG PO DAILY Paroxetine (Paroxetine) 40 Mg Tablet 40 MG PO HS Ropinirole (Ropinirole) 0.25 Mg Tablet 0.25 MG PO TID Rosuvastatin Calcium (Crestor) 40 Mg Tablet 40 MG PO DAILY Sevelamer HCl (Renagel) 800 Mg Tablet 800 MG PO TID Scheduled PRN Prochlorperazine Maleate (Prochlorperazine) 5 Mg Tablet 5 MG PO Q8 PRN PRN For Nausea/Vomiting Miscellaneous Medications Insulin Aspart (NovoLOG U100 Insulin Vial) 100 U/Ml U 1 UNIT SUBQ Meclizine (Bonine) 25 Mg Tab.chew 25 MG PO PMH Hypothyroid Gastroparesis Hypertension Asthma ESRD on hemodialysis (, , Sat) Diabetes Chronic nausea on Reglan Tardive dyskinesia from chronic Reglan use Chronic shortness of breath Anxiety Depression Surgical History Cataract AV fistula Social History Hx Alcohol Use: No Alcoholic Drinks Per Day: 0 Hx Substance Use: No Hx Tobacco Use: No Smoking Status: Former Smoker Exam Vital Signs Vital Sign - Last Date Time Temp Pulse Resp B/P Pulse Ox O2 Delivery O2 Flow Rate FiO2 10/30/16 18:10 36.9 92 18 166/81 95 Nasal Cannula 1.00 General: Alert, Oriented X3, Cooperative, Mild Distress, Other (Pt is reless in constant motion demonstrating dyskinesia of entire body. ) Mouth: Mucous Membr Moist/[place] Chest & Lungs: Clear to auscultation & percussion, No adventitious breath sounds Cardiovascular: Regular Rate/Rhythm Abdomen: Non-tender, Non-distended Extremities: No cyanosis/clubbing/edma bilat, No Edema Neurological: Cranial Nerves 2-12 Intact, Normal Speech, Cerebellar Function nl Finger-Nose, Other (NO resting tremor. (+)dyskenetic motiont of upper and lower extremities. NO cogwheeling. (+)lipsmaking / TD. ) Lab and Diagnostics Result Diagram: 10/30/16 1042 10/30/16 1050 Assessment & Plan 61-year-old female multiple comorbidities including end-stage renal disease, coronary artery disease, in addition to hypoxia and a progressive elevation of her bilirubin, admitted for further medical evaluation of both cardiopulmonary functioning in addition to hepatic functioning in regard to elevated bilirubin and liver function. #. Elevated troponin/coronary artery disease/dyspnea - Patient be continued on continuous telemetry - We will additionally continue to trend troponins the setting of end-stage renal disease but are less utility - Cardiology has been consulted and we continue to appreciate their recommendations - A Complete echocardiogram is ordered and pending, last conducted in 2014 demonstrating ejection fraction of 50%. - Additional nuclear medicine stress test is ordered and pending on recommendation of media center assistant this patient is past due for the stress test at this time. - Supplemental oxygen to be provided as needed. #. Hyperbilirubinemia/pruritus/transaminitis - Underlying etiology of this condition remains unclear - Patient cannot recall extensive workup to date - We will continue to trend liver functions in addition to bilirubin levels - May consider further imaging studies or additional evaluations as needed - Will FU with Dr. Luther in AM to discuss previous imagining studies and consider in patient MRI of liver for further evaluation. - We will refrain from GI consultation at this time, may consider later in hospitalization. #Diabetes mellitus type II - Continue patient on sliding scale insulin - We will hold home oral medications at this time is contrasted studies may be needed during hospitalization. #Tardive Dyskinesia - Continue home medications once reconciled. Pain Evaluation: Adequate Pain Control GI Prophylaxis: Not indicated VTE Mechanical Devices: Intermittant Pneumatic CD Resuscitation Status: CPR: Attempt Resuscitation Time spent 65 minutes Archie Astorga DO Oct 30, 2016 18:34 Archie Astorga DO Oct 30, 2016 18:34
[2016-10-30 18:40] LABS: Magnesium 1.9 mg/dL (1.6-2.6)
[2016-10-30] MEDS ORDERED: CARV6.252 PO (19:26)
[2016-10-30] MEDS ORDERED: PRAV80TA2 PO (19:28)
[2016-10-30] MEDS ORDERED: HYDR-656 PO (19:40)
--- NOTE | 2016-10-30 19:55 | NUR ---
MED REC/HOME MEDICATIONS RN attempted to complete med rec w/ pt and pts . List was updated from what pt and could recall. Pt does not have current list with her at this time.
[2016-10-30] MEDS: Insulin GLARgine 100 Unit/mL Syringe SUBQ SCH (21:28)
[2016-10-30] MEDS: PARoxetine 20 mg Tablet PO SCH (21:31)
[2016-10-30] MEDS: buPROPion SR 150 mg ER12 Tablet PO SCH (21:31)
[2016-10-30] MEDS: hydrOXYzine Pamoate 25 mg Capsule PO PRN (23:13)
[2016-10-31 00:53] VITALS: BP 152/65; PULSE 93; RESP 20; O2SAT 98
[2016-10-31 02:27] LABS: TROPONIN T 0.127 ug/L (0.0-0.011)
[2016-10-31] MEDS: Alum-Mag Hydrox-Simeth 30 mL Suspension PO PRN (03:04)
[2016-10-31 06:15] LABS: BASOPHILS % (AUTO) 0 % (0-3); EOSINOPHILS % (AUTO) 0 % (0-5); MONOCYTES % (AUTO) 9.5 % (4-12); Mean Corpuscular Hemoglobin 27.1 pg (27.0-35.0); Mean Corpuscular Volume 81.9 fL (81-100); NEUTROPHILS % (AUTO) 72.2 % (40-74); Platelet Count 168 bil/L (150-400)
[2016-10-31 06:28] VITALS: BP 152/82; PULSE 91; RESP 20; O2SAT 98
[2016-10-31] MEDS: Pantoprazole 40 mg ER24 Tablet PO SCH (08:30)
[2016-10-31 09:58] VITALS: PULSE 74
--- NOTE | 2016-10-31 10:29 | CONS ---
[address] [address] CONSULTATION REPORT PATIENT: SHANTE MORA : 1955 MR#: [id number] ADMIT: 10/30/2016 JOB ID: [id number] DATE OF SERVICE: 10/31/2016 RENAL CONSULTATION: HISTORY: The patient is a 61-year-old female who was transferred to [facility] for atypical chest pain and elevated troponins. She has a history of end-stage renal disease and renal consultation is being sought for further evaluation of her end-stage renal disease. She is somewhat of a poor historian, and at time of my evaluation, her history was considerably different than other histories obtained. According to the patient, she states that she has chronic pruritus and this worsened yesterday following her dialysis treatment. This led her to go to the hospital. According to the record, she was seen in the emergency department for chest pain and had elevated troponins. She was transferred here for further evaluation and a stress test. The patient has some type of chronic psychiatric disorder and has a history of chronic tardive dyskinesia which is readily apparent. She also has about a four year history of end-stage renal disease secondary to diabetes and hypertension. She normally dialyzes at [facility] on Saturday, , Saturday, and her last dialysis was yesterday. She states she is normally compliant with her diabetes. The patient denies any recent history of any chest pain, lower extremity edema, severe headache, dysarthria, nausea, vomiting, diarrhea, urinary disorders or discomfort, fever, chills or rashes. She denies any chest pain contrary to other information. DATE OF SERVICE: PAST MEDICAL HISTORY: 1. Is significant for end-stage renal disease, as detailed above. 2. Insulin-requiring diabetes mellitus with diabetic retinopathy, peripheral neuropathy and end-stage renal disease. 3. Hypertension with hypertensive heart disease and hypertensive nephrosclerosis. 4. Oxygen-dependent hypoxia. 5. Asthma. 6. Hypothyroidism. 7. Diabetic gastroparesis which she takes Reglan for which may be adding to her extrapyramidal/tardive dyskinesia symptoms. 8. Anxiety. 9. Depression. PAST SURGICAL HISTORY: Is significant for: 1. Cataract excision. 2. AV fistula. ALLERGIES: She is allergic to CODEINE and HYDROCODONE. SOCIAL HISTORY: She denies use of alcohol, tobacco or illicit drugs. FAMILY HISTORY: Noncontributory. REVIEW OF SYSTEMS: As detailed above. PHYSICAL EXAMINATION: Revealed a 61-year-old female who appeared to be continuously moving in bed and had evidence of tardive dyskinesia by her jerking type movements and intermittent protrusion of her tongue. Her blood pressure was 132/93 with a pulse rate of 86. HEENT examination was unremarkable. Neck is supple without adenopathy, thyromegaly or jugular venous distention. Lungs are clear to auscultation. Heart was regular and rhythmical with a soft systolic murmur. Abdomen is soft, without any tenderness, rebound, guarding, masses or hepatosplenomegaly. Extremities showed evidence of half and half nails but no evidence of any clubbing, cyanosis or edema. Skin turgor is good. Neurological examination was remarkable only for the tardive dyskinesia. LABORATORY EXAMINATION: This morning her white count is 6.0, hemoglobin 12.5, hematocrit 37.5. Red cell indices, platelet count and differential were normal. Sodium is 129, potassium 4.0, chloride of 85, bicarbonate 25, BUN and creatinine were 38 and 3.47. Her glucose is 221. Alkaline phosphatase is elevated at 481. CT of the chest did not show any evidence of any pulmonary embolus but pleural effusions were noted and low cardiac output was also noted. IMPRESSION: 1. End-stage renal disease-dialysis dependent. 2. Diabetic nephropathy. 3. Hypertension with hypertensive heart disease and hypertensive nephrosclerosis. 4. Tardive dyskinesia. RECOMMENDATION: Tomorrow is her regular dialysis date and today I do not have any reason for emergent dialysis. When she is cleared by Cardiology, she can be discharged. Once again, I would like to thank you for allowing me to participate in the care of this most pleasant and interesting patient. I will be following her closely with you.
[2016-10-31 10:44] VITALS: BP 148/76; PULSE 93; RESP 20; O2SAT 98
--- NOTE | 2016-10-31 12:21 | DRSVH ---
[facility] [address] [facility] [place] [address] Echocardiogram Report Name: SHANTE MORA Study Date: 10/31/2016 Height: 63 in Hospital Exam Location: [facility] Weight: 170 lb Gender: Female BSA: 1.8 m2 : 1955 Age: 61 yrs BP: 152/82 mmHg Reason For Study: CHEST PAIN Ordering Physician: FORTINO SANTOS Performed By: Aron Bass Referring Physician: Aime Burks Interpretation Summary The ejection fraction is estimated to be 30-35%. Flattened septum is consistent with RV pressure overload. Dyskinetic septum, anteroseptal wall is severely hypokinetic, inferior hypokinesis. Right ventricular systolic function is borderline reduced. There is moderate mitral regurgitation. There is moderate to severe tricuspid regurgitation. The right ventricular systolic pressure is estimated at 46 mmHg assuming a right atrial pressure of 8 mm Hg. Procedure: A two-dimensional transthoracic echocardiogram with color flow and Doppler was performed. The study quality was technically good. Comparison is made with the echocardiogram of 03/29/15. The patient was in normal sinus rhythm during the exam. Left Ventricle: The left ventricle is normal in size. There is normal left ventricular wall thickness. There is no thrombus. The ejection fraction is estimated to be 30-35%. Flattened septum is consistent with RV pressure overload. Dyskinetic septum, anteroseptal wall is severely hypokinetic, inferior hypokinesis. Right Ventricle: The right ventricle is normal size. Right ventricular systolic function is borderline reduced. Atria: Both atria are mildly dilated. The interatrial septum is intact with no evidence for an atrial septal defect. Mitral Valve: The mitral valve is normal in structure and function. The mitral valve chordae are thickened and/or calcified. There is moderate mitral regurgitation. Aortic Valve: The aortic valve is normal in structure and function. The aortic valve is trileaflet. The aortic valve opens well. There is mild aortic valve sclerosis. No aortic regurgitation is present. Tricuspid Valve: The tricuspid valve does not fully coapt. There is moderate to severe tricuspid regurgitation. The right ventricular systolic pressure is estimated at 46 mmHg assuming a right atrial pressure of 8 mm Hg. Pulmonic Valve: The pulmonic valve is normal in structure and function. There is trace pulmonic regurgitation. Great Vessels: The aortic root is normal size. The dimensions of the ascending aorta are normal. The pulmonary artery is normal size. The IVC is of normal diameter and collapses less than 50% with a sniff. This suggests a right atrial pressure of 8 mm Hg. Pericardium/ Pleura There is no pericardial effusion. There is a moderate left-sided pleural effusion. MMode/2D Measurements & Calculations LVIDd: 5.1 cm LA dimension: 4.1 cm RA long axis: 5.0 cm Ao root diam LVIDs: 4.7 cm FS: 8.8 % LA A2 area: 20.5 cm RA area: 20.7 cm Aortic Jxn EPSS: 1.6 cm LA A4 area: 21.9 cm RA vol: 72.5 ml IVSd: 0.92 cm LA length (vol): 6.0 cm RA : 40.2 ml/m2 asc Aorta LVPWd: 0.91 cm LA vol: 64.0 ml Diam: 2.9 cm LA vol index: 35.5 ml/m IVC diam: 1.7 cm EDV(MOD-sp2) LV yu. diameter/BSA LV sys. diameter/BSA (cm/m^2): 2.9 (cm/m^2): 2.6 ESV(MOD-sp2) EF(MOD-sp2) Doppler Measurements & Calculations Ao V2 max MV E max darius MV E/A: 1.3 TR max darius : 124.1 cm/sec : 106.3 cm/sec Med Peak E' Darius : 309.6 cm/sec Ao max PG MV A max darius TR max PG : 6.2 mmHg : 82.1 cm/sec E/E' med: 27.9 : 38.3 mmHg Ao mean PG Lat Peak E' Darius PA V2 max : 3.6 mmHg : 61.4 cm/sec E/E' lat: 11.7 PA mean PG E/e' average: 19.8 MV A dur: 0.11 sec PA Accel Time : 0.06 sec MV dec time Ao V2 mean MR flow rate PA V2 mean : 0.10 sec : 92.2 cm/sec : 48.6 cm/sec Ao V2 VTI: 24.7 cm : 53.0 cm3/sec PA pr(Accel) MR PISA radius : 49.5 mmHg Electronically signed by: Rajinder Solo on Reading Physician:10/31/2016 12:21 PM
--- NOTE | 2016-10-31 14:40 | NUR ---
Stress Test NPO since midnight. Pt escorted off floor to stress test via w/c with O2 in place. Family no longer at bedside but notified by this RN via phone. Addendum: 10/31/16 at 1910 by NAVEED AVILA RN Returned from stress test, tele applied.
--- NOTE | 2016-10-31 14:42 | NUR ---
Social Work-initial assessment: Data:See initial assessment. Pt is a 61 y/o female who was admitted on 10/30/16 for hypoxia per H&P. Pt's insurance is [employer] and PCP is Neal Burks MD. EMR reviewed. Pt's readmission socre is 3. SW met with pt at bedside, SW role explained. Pt is alert and oriented x3. Pt resides at home with her where she remains independent with ADLS. Pt does not drive and does not use any DME. Pt has no HH or SNF history. Pt has no jail care insurance or VA benefits. SW discussed DPOA/ advanced directive, pt confirms she has not completed this, SW provided pt with a copy. Pt goes to [facility] for [facility] on Saturday/ / Sat. [facility] Pt's family to provide transport home at discharge. SW placed phone number and plan on white board in room. SW will continue to follow. Assessment:Pt who is independent at baseline. Plan:Pt to discharge home when medically stable via POV. No anticipated discharge needs. SW will continue to follow. RICK Dubon Addendum: 10/31/16 at 1444 by ESMER GURROLA Amended: Links added.
[2016-10-31] MEDS: hydrOXYzine Pamoate 25 mg Capsule PO PRN ×2 (17:19→20:42)
[2016-10-31 17:26] VITALS: BP 134/76; PULSE 79; RESP 20; O2SAT 98
[2016-10-31] MEDS ORDERED: KLO5T PO (17:31)
[2016-10-31] MEDS ORDERED: ONDA4TAB12 PO (17:31)
--- NOTE | 2016-10-31 17:47 | DRSVH ---
PROCEDURE: 1 DAY PHARMACOLOGICAL STRESS TEST Rest and pharmacological stress myocardial perfusion SPECT with gated imaging and ejection fraction RADIOPHARMACEUTICAL: 8.6 mCi Tc-99m tetrafosmin IV at rest and 31.6 mCi Tc-99m tetrafosmin IV at peak effect of pharmacological stress. A oxn-tzh-aayjpiij was performed. INDICATIONS: 61 year-old woman with coronary artery disease and end-stage renal disease presents wit h elevated troponin and hypoxia. Evaluate for myocardial ischemia. TECHNIQUE: Radiopharmaceutical was injected at peak stress test, and also at rest. SPECT images wer e obtained. SPECT myocardial perfusion images were displayed in short axis, horizontal long axis, an d vertical long axis views. Gated images were reviewed using [employer] software. COMPARISON: [facility], CT, CT ANGIO CHEST PE, 10/30/2016, 14:49. [place], [place], MYOCARD PERF SPECT MULT, MIBI, 01/25/2014, 11:41. [place], [place], MYOCARD PERF SPEC T MULT, MIBI, 01/08/2013, 14:18. CARDIAC STRESS: A pharmacologic stress test was performed under the supervision of an attending staff, using an infus ion of No[employer]. Hemodynamic data: There is normal blood pressure and heart rate response to pharmacologic stress. Symptoms: The patient denied anginal chest pain. Aminophylline: 100 mg EKG: No diagnostic changes of ischemia; no ectopy. FINDINGS: Raw data: There is good myocardial uptake of radiotracer. No significant motion artifacts. Left ventricle function: Gated images demonstrate normal left ventricular wall thickening. There is diffuse hypokinesis of the left ventricle. No transient ischemic dilation. Left ventricle resting e nd diastolic volume is mildly increased. Left ventricle stress ejection fraction is 37%; normal rang e is above 45%. Myocardial perfusion: There is a small, mild, fixed defect in the apex, which may be secondary to ap ical thinning. A medium size, mild mild reversible defect is present in the septum, which is largely resolved on prone imaging. Comparison to prior examinations: Comparison was made with the last examination on 01/25/2014. Mild ap ical thinning was present. There was a fixed defect the septum on the prior examination which was fel t most likely caused by artifact. There is significantly decreased left ventricular systolic function . IMPRESSION: Probably normal myocardial perfusion images. 1. A medium-sized, mild, reversible perfusion defect in the septum is present, which is resolved on p noemy imaging, suggesting attenuation artifact. A small very mild ischemia in the septum cannot be ent irely excluded. 2. A small, mild fixed defect in the apex is likely related to apical thinning. 3. Mild left ventricle enlargement and moderately decreased left ventricle systolic function. There i s diffuse hypokinesis of the left ventricle. 4. No chest pain or diagnostic EKG changes ischemia. PQRS ATTESTATIONS: Measure 322 - Is this imaging test primarily performed on a low-risk surgery patient for preoperative evaluation within 30 days preceding their low-risk non-cardiac surgery? Low-risk surgery is defined as cardiac or myocardial infarction less than 1%, including (but not limited to) endoscopic pr ocedures, superficial procedures, cataract surgery, and excisional breast surgery: Answer: No Measure 323 - Is this imaging test performed primarily for the monitoring of an asymptomatic patient who had percutaneous coronary intervention on the visit date or within 2 years of the visit date? An swer: No Measure 324 - Is this imaging test performed primarily for the initial detection and risk assessment on an asymptomatic, low coronary heart disease patient? Low CHD risk definition = clinicians should consider the maximum number of available patient factors used to estimate risk based on [place] (A TP III criteria), typically age, gender, diabetes, smoking status, and use of blood pressure medicati on, and integrate age appropriate estimates for missing elements, such as LDL or standard blood press ure. Answer: No Dictated by: Edmond Santa M.D. on 10/31/2016 at 17:22 Approved by: Edmond Santa M.D. on 10/31/2016 at 17:45
[2016-10-31 18:07] LABS: Bilirubin, Direct 1.1 mg/dL (0.0-0.3)
--- NOTE | 2016-10-31 19:04 | PCM.PNMED ---
Subjective Date of Service Oct 31, 2016 Subjective Recommendations essentially stable condition today. She continues to endorse extreme itching all over her body remains high restless to the tarda dyskinesia. She is still expressing some cough as well, she describes as "the usual" , but laughs that she is only had this cough for a couple of weeks to months at most. She experienced no worsening of symptoms however, denies shortness of breath dizziness chest pains or any other complaints at this point aside from those that are chronic. Exam Vital Signs Vital Sign - Last Date Time Temp Pulse Resp B/P Pulse Ox O2 Delivery O2 Flow Rate FiO2 10/31/16 17:26 36.7 79 20 134/76 98 Nasal Cannula 2.00 Intake and Output 10/30/16 10/30/16 10/31/16 Cumulative From/Thru 15:00 23:00 07:00 10/30/16 10:20 - 10/31/16 06:56 Intake Total 236 ml 113 ml 349 ml Output Total 0 ml 0 ml Balance 236 ml 113 ml 349 ml Intake Oral 236 ml 113 ml 349 ml Output Urine Total 0 ml 0 ml General: Alert, Oriented X3, Cooperative, Mild Distress Neck: Supple Chest & Lungs: Clear to auscultation & percussion Cardiovascular: Regular Rate/Rhythm Abdomen: Non-tender, Non-distended Extremities: No cyanosis/clubbing/edma bilat Neurological: Other (patient is highly restless with apparently unintentional motions due to tardive dyskinesia affecting upper and lower extremities as well as face. Otherwise nonfocal examination, stable from admission. ) IVs and Medications Medications Reviewed: Medications were reviewed in detail Lab and Diagnostics Result Diagram: 10/31/16 0600 10/31/16 0118 Assessment & Plan 61-year-old female multiple comorbidities including end-stage renal disease, coronary artery disease, in addition to hypoxia and a progressive elevation of her bilirubin, admitted for further medical evaluation of both cardiopulmonary functioning in addition to hepatic functioning in regard to elevated bilirubin and liver function. #. Elevated troponin/coronary artery disease/dyspnea - We will additionally continue to trend troponins the setting of end-stage renal disease but are less utility - Cardiology has been consulted and we continue to appreciate their recommendations - A Complete echocardiogram is ordered and pending, last conducted in 2014 demonstrating ejection fraction of 50%. - Echo conducted today now demonstrating diminished ejection fraction in addition to some wall motion abnormalities. - Result 2 a day to consult a time computer bookkeeper as this is not a critical condition certainly she is outside the window for possible ablation even if it should represent acute MO. - Additional nuclear medicine stress test is ordered and demonstrates similar wall motion abnormality but no evidence of reversible ischemia. - Supplemental oxygen to be provided as needed, continue to monitor on telemetry. - Plan to discuss case further with cardiology in am. #. Hyperbilirubinemia/pruritus/transaminitis - Underlying etiology of this condition remains unclear - Patient cannot recall extensive workup to date - We will continue to trend liver functions in addition to bilirubin levels - May consider further imaging studies or additional evaluations as needed - FU with Dr. Luther feels the information that he had noted elevated bilirubin and consulted banquet supervisor also part of [facility], who noted a mass on CT scan and has follow-up MRI study pending. Given patient's decompensating condition, and refractory itching which may be related to an obstructive biliary process, we will pursue MRCP study inpatient as opposed to deferring to later this week to help move along diagnosis and also understand more about underlying condition. - We will refrain from GI consultation at this time, may consider later in hospitalization. #Diabetes mellitus type II - Continue patient on sliding scale insulin - We will hold home oral medications at this time is contrasted studies may be needed during hospitalization. #Tardive Dyskinesia - Continue home medications once reconciled. - Ropinirole Pain Evaluation: Adequate Pain Control GI Prophylaxis: Not indicated VTE Mechanical Devices: Intermittant Pneumatic CD Resuscitation Status: CPR: Attempt Resuscitation Time spent 35 minutes Archie Astorga DO Oct 31, 2016 19:04
[2016-10-31] MEDS ORDERED: Glucose 40% Oral Gel 15 Gm Tube PO PRN (19:20)
[2016-10-31] MEDS ORDERED: predniSONE 5 mg Tablet PO ONE (19:20)
[2016-10-31 20:26] VITALS: BP 120/70; PULSE 91; RESP 20; O2SAT 93
--- NOTE | 2016-10-31 21:37 | DRSVH ---
PROCEDURE: MR ABDOMEN MRCP INDICATIONS: Hepatic mass/hyperbilirubinemia TECHNIQUE: Coronal HASTE through the abdomen, axial 2-D FLASH in- and [id number], and breath-hold T2 FSE with fat saturation through the biliary system and pancreas. Oblique coronal and axial thin-slice HASTE, radial thick-slab HASTE centered on the extrahepatic bile ducts. Intravenous secretin: Not requested. COMPARISON: [facility], CT, CT ANGIO CHEST PE, 10/30/2016, 14:49. FINDINGS: Image quality: This is a virtually nondiagnostic study given the end solitary movement of the patient throughout the exam. There is no evidence for biliary ductal dilatation on the T2 HASTE coronal images. The gallbladder wood s a grossly normal appearance. No gallbladder wall thickening or definite pericholecystic fluid. The common bile duct and pancreatic duct are not visualized. Visualized portions of the liver, kidneys, and spleen have a normal appearance. Limited visualization of the bowel demonstrates normal caliber and wall thickness. Limited visualization of the spine demo nstrates no marrow signal abnormalities. IMPRESSION: 1. Essentially nondiagnostic MRCP given patient's extensive involuntary motion during the study. Limi jassi visualization on the coronal T2 HASTE images demonstrate no gross biliary ductal dilatation and a grossly normal appearance the gallbladder. If further characterization of the biliary system is warranted, consider ultrasound to accommodate th e patient's involuntary movements. Dictated by: Suzanne Marie M.D. on 10/31/2016 at 21:28 Approved by: Suzanne Marie M.D. on 10/31/2016 at 21:36
[2016-10-31] MEDS: Insulin LISPRO 300 Unit/3 mL Inj SUBQ SCH (21:50)
[2016-10-31] MEDS: buPROPion SR 150 mg ER12 Tablet PO SCH (21:55)
[2016-10-31] MEDS: PARoxetine 20 mg Tablet PO SCH (21:55)
[2016-10-31] MEDS: Insulin GLARgine 100 Unit/mL Syringe SUBQ SCH (21:56)
[2016-11-01] VITALS (9 sets, daily range): BP systolic 129–154; BP diastolic 71–99; PULSE 78–93; RESP 20; O2SAT 94–99
[2016-11-01] MEDS: hydrOXYzine Pamoate 25 mg Capsule PO PRN ×4 (00:23→22:32)
--- NOTE | 2016-11-01 05:42 | NUR ---
Itching Patient c/o itching. scratching IV and face. no itching medications due at this time. MD aware. Bilirubin and ammonia elevated. MD states no new order at this time. patient given Ice pack to IV site and cold compresses for arm and forehead. 45 minutes later medicated with vistaril. 40 minutes later patient reports no itching. will continue to monitor. at bedside. patient on 2L via NC.
[2016-11-01] MEDS: Insulin LISPRO 300 Unit/3 mL Inj SUBQ SCH ×4 (08:00→21:14)
--- NOTE | 2016-11-01 08:14 | PCM.PNMED ---
Subjective Date of Service Nov 01, 2016 Subjective Pt remains extremely itchy, all night she was kept up by this. Still having dry cough, perhaps slightly improved. NO other acute complaints, but no significant improvement. Exam Vital Signs Vital Sign - Last Date Time Temp Pulse Resp B/P Pulse Ox O2 Delivery O2 Flow Rate FiO2 11/01/16 06:07 93 11/01/16 04:45 36.8 20 129/78 99 Nasal Cannula 2.00 Intake and Output 10/31/16 10/31/16 11/01/16 Cumulative From/Thru 15:00 23:00 07:00 10/30/16 10:20 - 11/01/16 06:07 Intake Total 200 ml 493 ml 1042 ml Output Total 0 ml 0 ml 0 ml Balance 200 ml 493 ml 1042 ml Intake Oral 200 ml 473 ml 1022 ml IV Total 20 ml 20 ml Output Urine Total 0 ml 0 ml 0 ml Exam General: Alert, Oriented X3, Cooperative, Mild Distress Neck: Supple Chest & Lungs: Clear to auscultation & percussion Cardiovascular: Regular Rate/Rhythm Abdomen: Non-tender, Non-distended Extremities: No cyanosis/clubbing/edema bilat Neurological: Patient is highly restless with apparently unintentional motions due to tardive dyskinesia affecting upper and lower extremities as well as face. Otherwise nonfocal examination, stable from admission. IVs and Medications Medications Reviewed: Medications were reviewed in detail Lab and Diagnostics Result Diagram: 10/31/16 0600 10/31/16 0118 Assessment & Plan 61-year-old female multiple comorbidities including end-stage renal disease, coronary artery disease, in addition to hypoxia and a progressive elevation of her bilirubin, admitted for further medical evaluation of both cardiopulmonary functioning in addition to hepatic functioning in regard to elevated bilirubin and liver function. #. Elevated troponin/coronary artery disease/dyspnea - We will additionally continue to trend troponins the setting of end-stage renal disease but are less utility - A Complete echocardiogram is ordered and pending, last conducted in 2014 demonstrating ejection fraction of 50%, now diminished to 30% on yesterday's study with evidence of hypokinesis. - Cardiology has been consulted and we continue to appreciate their recommendations - Additional nuclear medicine stress test is ordered and demonstrates similar wall motion abnormality but no evidence of reversible ischemia. - Supplemental oxygen to be provided as needed, continue to monitor on telemetry. - GI work up is also pending, which will effect considerations for more invasive evaluation and procedures. #. Hyperbilirubinemia/pruritus/transaminitis/Liver mass - Underlying etiology of this condition remains unclear - Continue to trend liver functions in addition to bilirubin levels - MRCP inconclusive due to involuntary motion, US abd pending, CT Abd records requested from [facility] - AFP tumor marker is also pending to consider possible cancerous process. - GI consulted awaiting further recommendations. #Severe refractory Pruritus: - Trial Lactulose to aid in Ammonia excretion - Trial Opiate agonist given failure of antihistamine and steroid medications. #Diabetes mellitus type II - Continue patient on sliding scale insulin - We will hold home oral medications at this time is contrasted studies may be needed during hospitalization. #Tardive Dyskinesia - Continue home medications once reconciled. - Ropinirole Pain Evaluation: Adequate Pain Control GI Prophylaxis: Not indicated VTE Mechanical Devices: Intermittant Pneumatic CD Resuscitation Status: CPR: Attempt Resuscitation Time spent 30 minutes Archie Astorga DO Nov 01, 2016 08:14
[2016-11-01] MEDS: Lactulose 20 Gm/30 mL 30 mL Syrup PO SCH (08:30)
[2016-11-01] MEDS: Pantoprazole 40 mg ER24 Tablet PO SCH (09:24)
--- NOTE | 2016-11-01 10:45 | NUR ---
Off the unit Pt off the unit to [facility] for Dialysis, No complains of increased pain or SOB. 2L O2 via NC. Pt complains of increased generalized itching, aware. Will continue to monitor. Addendum: 11/01/16 at 1225 by BASHIR DUENAS RN Call from Natasha GARRIDO), on [facility]. reports BS of 88, pt is resting quietly, does not seem to be itching as much at this time. Will contact this RN with any additional changes for pt. Addendum: 11/01/16 at 1526 by BASHIR DUENAS RN Pt returned to [facility]. Per Natasha QUEVEDO, 2L removed. Pt is resting comfortably, no complains increased pain or SOB. Call light in reach, will continue to monitor.
--- NOTE | 2016-11-01 11:40 | PCM.PNNEPH ---
Subjective Date of Service Nov 01, 2016 Subjective Patient states that she feels better today. Appetite is good and she denies any chest pain, shortness of breath, nausea, or vomiting. Exam Vital Signs Vital Sign - Last Date Time Temp Pulse Resp B/P Pulse Ox O2 Delivery O2 Flow Rate FiO2 11/01/16 10:53 85 11/01/16 10:20 36.1 20 135/77 95 Nasal Cannula 2.00 Intake and Output 10/31/16 10/31/16 11/01/16 Cumulative From/Thru 15:00 23:00 07:00 10/30/16 10:20 - 11/01/16 06:07 Intake Total 200 ml 493 ml 1042 ml Output Total 0 ml 0 ml 0 ml Balance 200 ml 493 ml 1042 ml Intake Oral 200 ml 473 ml 1022 ml IV Total 20 ml 20 ml Output Urine Total 0 ml 0 ml 0 ml Exam Neck is supple without adenopathy, thyromegaly, or jugular venous distention. Lungs are clear to auscultation. Heart is regular and rhythmical with a soft systolic murmur. Abdomen soft without any tenderness or rebound guarding masses or hepatosplenomegaly. Extremities show any evidence of any clubbing cyanosis or edema. Skin turgor is good. Lab and Diagnostics Result Diagram: 10/31/16 0600 11/01/16 0840 Plan Impression Impression #1 end-stage renal disease dialysis dependent Recommendations #1 patient to dialyze today for routine treatment for A MAX DIALYZER, 2 POTASSIUM BATH, 400 BLOOD FLOW, 1200 OF HEPARIN 500 NOW AND 2 L OF FLUID TO BE REMOVED. Lee Jamison DO Nov 01, 2016 11:40
--- NOTE | 2016-11-01 15:10 | NUR ---
Dialysis note: 4 hrs tx 2000 ml net UF Right upper arm fistula, accessed with no problems Pls see DTR for VS details Qb 400-500 Heparin given O2 @ 2L via NC on Tolerated tx, slept at intervals Fistula needle sites clotted w/in 10 min Stable condition at end of tx Report given to Natasha QUEVEDO
--- NOTE | 2016-11-01 16:00 | NUR ---
pt on MOC for DIALYSIS from aprox [phone] tele quality technician informed of temp location and return to unit report received from and provided back to CT RN (MPC) see psychic reader note, intervention, and/or graphic flow chart for treatment details
--- NOTE | 2016-11-01 16:08 | NUR ---
Evaluation completed. Please go to "Notes" then click on "Assessments and Notes" (bottom left corner of screen). Then select appropriate discipline tab on top of screen.
--- NOTE | 2016-11-01 16:30 | NUR ---
Hypoglycemia BS =66, no S/S of hypoglycemia noted. Pt given 120 mls of apple juice, awaiting dinner. This RN encouraged consumption of oral intake, for low blood sugar, pt verbalized understanding. Call light in reach, will continue to monitor.
--- NOTE | 2016-11-01 16:34 | DRSVH ---
PROCEDURE: US ABDOMEN, LIMITED ([id number]) INDICATIONS: Evaluation of liver mass TECHNIQUE: Real-time focused scanning was performed of the abdomen, with image documentation. COMPARISON: None. FINDINGS: Limited examination demonstrates no definite liver mass as was seen on outside study. No g allstones are present and the gallbladder wall is thickened measuring 4 mm. Small amount pericholecy stic fluid. Negative sonographic Duran sign. IMPRESSION: 1. No liver mass visualized sonographically. 2. Thickened and edematous gallbladder wall which could be related to developing acalculus cholecysti tis. Correlate clinically. Dr. Astorga given results by the dielectric press operator at 1050 hrs. 11/01/2016. Dictated by: Jc Hernandez [facility] Interpreted: Chris Haynes MD on 11/01/2016 at 13:09 Approved by: Chris Haynes M.D. on 11/01/2016 at 16:30
--- NOTE | 2016-11-01 20:26 | CONS ---
[address] [address] CONSULTATION REPORT PATIENT: SHANTE MORA : 1955 MR#: [id number] ADMIT: 10/30/2016 JOB ID: [id number] DATE OF SERVICE: 11/01/2016 HISTORY OF PRESENT ILLNESS: It was a pleasure seeing the patient at [facility] GI service for elevated bilirubin. This is a 61-year-old lady with a quite extensive medical history including end-stage renal disease on dialysis due to diabetes type 2 with underlying COPD on oxygen. The patient is trying to get listed for renal transplant. She also has a history of hypothyroidism, hypertension. The patient came to the emergency department with diffuse itching and shortness of breath. In the emergency department they were giving her medication including Benadryl to help with the itching. However, this was not successful, but there was a troponin that came back elevated, so she was evaluated by cardiology and thought that she was not having acute coronary syndrome because the elevation of troponin was most likely due to her end-stage kidney disease. So, the patient eventually was going to be due for a stress test, so the patient was admitted for monitoring and the stress test. The patient was seen by the hospitalist service and the troponin was trended. Cardiology was consulted and an echocardiogram was done; but, at the same time GI was consulted because of mild hyperbilirubinemia, transaminase elevation, and there was a question about the liver lesion on the CT scan that was done in [facility]. During the hospitalization, the patient had a CT angio, which was a suboptimal study because of motion artifact. She also had an MRCP, which also was nondiagnostic because of motion artifact. She had an ultrasound which showed no liver mass, a thickened and edematous gallbladder wall which could be related to development of acalculous cholecystitis. The ultrasound did not reveal any liver lesion. Cardiology did a echocardiogram which showed EF of 30% to 35%. RV pressure overload, dyskinetic septum with severe hypokinetic inferior hypokinesis. Nephrology also got involved. There was a stress test that was done which showed probable normal myocardial perfusion imaging. However, they did state a medium-sized mild reversible perfusion defect in the septum is present and this could be an attenuation artifact, but they also said a very small mild ischemia in the septum cannot be entirely excluded. When I saw the patient, she said her itching was better. She is short of breath but she never had any issues with the liver itself. She was never told she had hepatitis, liver disease, jaundice. When she was getting a CT scan of the chest, she was told there was something in the liver but she does not know what it is. This was done in July. Then later on she was supposed to have an MRI but this was not done. Currently, she says she has some nausea, but no vomiting. No fever, chills, headaches, blurred vision, dizziness, lightheadedness, chest pain, shortness of breath. No abdominal pain. No blood in the stools, black stools, diarrhea, constipation. PAST MEDICAL HISTORY: 1. End-stage renal disease, on dialysis. 2. Insulin requiring diabetes with neuropathy, kidney disease, and retinopathy, 3. Hypertension. 4. Oxygen-dependent hypoxia. 5. Asthma, COPD. 6. Hypothyroidism. 7. Diabetic gastroparesis for which she takes Reglan, which is probably adding to the tardive dyskinesia. 8. Anxiety. 9. Depression. PAST SURGICAL HISTORY: 1. Cataract surgery. 2. AV fistula. ALLERGIES: CODEINE AND HYDROCODONE. SOCIAL HISTORY: Denies tobacco, alcohol, or drugs. MEDICATIONS: Include atorvastatin, hydroxyzine, carvedilol, pantoprazole, Requip, aspirin, insulin, paroxetine, nortriptyline, Singulair, levothyroxine, bupropion, Benadryl, Maalox, lactulose, insulin, oxycodone, dextrose, nitroglycerin, Tylenol, polyethylene glycol, senna, and Zofran. PHYSICAL EXAMINATION: The patient is alert, oriented. Does appear comfortable. Vitals include temp of 36.3, pulse 86, respiration 20, blood pressure 130/72. Head and neck: No icterus. Lungs: Significant decrease in breath sounds, with some wheezing. Cardiovascular: Regular rate and rhythm, with normal S1 and S2. Abdomen: Soft, nontender, nondistended, with normoactive bowel sounds. Extremities: No pitting edema of the ankles. Skin shows no clear jaundice. Radial pulses bilateral strong and intact. LABORATORY DATA: White count 6000, hemoglobin 12.4, platelets are 168,000. Chemistry reveals that her total bili is 1.7, direct bili is 1.1, and total bili today is 1.5. Alkaline phosphatase is elevated at 474. AST 37, ALT 22. BUN is 58, creatinine 4.54. IMPRESSION: This is a lady who has mild elevation of bilirubin and elevation of alkaline phosphatase. The ultrasound does not show evidence of fatty liver, but it was a limited exam. There was no liver mass, no gallstones, gallbladder wall was thickened at 4 mm, and small amount of pericholecystic fluid. Negative for sonographic Duran sign. No liver lesion noted, but there is some question that there could be acalculous cholecystitis. The elevated bilirubin and alkaline phosphatase can indicate there could be acalculous cholecystitis. Therefore, recommend: 1. HIDA scan with CCK. 2. Would obtain GGT. 3. I do not believe that her pruritus is caused by the abnormal LFTs. If this is not due to the gallbladder, another differential that could be is due to Gilbert's. However, Gilbert's usually does not cause this much elevation of the alkaline phosphatase. Elevation of the alkaline phosphatase could be also from the bones as well. She is probably a likely candidate with osteoporosis; therefore, getting dexa scan should be considered. EAN
[2016-11-01] MEDS: buPROPion SR 150 mg ER12 Tablet PO SCH (21:04)
[2016-11-01] MEDS: PARoxetine 20 mg Tablet PO SCH (21:04)
[2016-11-01] MEDS: Insulin GLARgine 100 Unit/mL Syringe SUBQ SCH (21:13)
[2016-11-02] VITALS (8 sets, daily range): BP systolic 132–154; BP diastolic 72–79; PULSE 80–97; RESP 20; O2SAT 93–98
--- NOTE | 2016-11-02 05:09 | NUR ---
NOC / blood sugars HS blood sugar 128. Routine Lantus given. HS snack offered and accepted. BS recheck at 0230: 141. Patient slept well thru NOC. prn Vistaril given x 1 for c/o itching. Washed her skin w/ warm water/washcloth, house lotion applied to extremities. Patient expressed some relief. Pressure dressing to LUE fistula removed >6hours s/p completion of dialysis. no bleeding noted at site. + for bruit and thrill. VSS, tele SR-90's. Call light w/in reach. CTM for changes. Addendum: 11/02/16 at 0731 by CASANDRA CHILD RN @ HS: BS 128 at 2130. Routine lantus ordered, patient declined the full 28units of lantus, requesting instead 20 units. page to to notify.
[2016-11-02] MEDS: Insulin LISPRO 300 Unit/3 mL Inj SUBQ SCH ×4 (07:46→20:30)
[2016-11-02] MEDS: Pantoprazole 40 mg ER24 Tablet PO SCH (07:52)
[2016-11-02] MEDS: Lactulose 20 Gm/30 mL 30 mL Syrup PO SCH (08:45)
--- NOTE | 2016-11-02 11:40 | NUR ---
Hypoglycemia BS of 62, pt NPO prior to HIDA scan. Reviewed NPO sts with Nuc MEd. [place] to give 120 mls of apple juice. Juice given. Will continue to monitor. Addendum: 11/02/16 at 1221 by BASHIR DUENAS RN BS recheck = 93. Call light in reach, will continue to monitor.
--- NOTE | 2016-11-02 11:45 | NUR ---
NUTRITION ASSESSMENT: ASSESS: Pt is a 61yo F admitted for hypoxia and a progressive elevation of her bilirubin. Pt has ESRD and is on chronic dialysis. Nephrology is following. GI is also involved and pt is to have HIDA scan. Pt has a history of dysphagia. ST evaluated pt 11/01 and placed her on a dysphagia mechanical diet with thin liquids. PO has been variable from 0-75% of meals. PMHX: ESRD on HD, T2DM, COPD, HTN, hypothyroidism LABS: Reviewed. Na 130, Cl 90, Bun 58, pug machine operator 4.54, t.bili 1.5, Alk phos 474, alb 3.6 MEDS: Reviewed. Lactulose, insulin GI: 0 BM SKIN: no major issues CURRENT WTS: 78.8kg, BMI 30.8kg/m2, admit wt 77.2kg, IBW 52.3kg DIET: dysphagia mechanical, PO 0-75% EST. NEEDS: dialysis, BMI Kcals: 2365-2760kcal/day (30-35kcal/kg) Pro: 65-105g/day (1.2-2.0g/kg IBW) NUTRITION DIAGNOSIS: 1.) Increased kcal/pro needs related to ESRD as evidence by pt on chronic dialysis 2.) Chew/swallow difficulty related to poor dentition and weakness as evidence by needs for dysphagia mechanical diet NUTRITION INTERVENTION: 1.) Diet per ST 2.) Continue to send Nepro at L 3.) Will monitor for BM- pt received lactulose this am so will likely have BM soon MONITOR / EVAL: PO, ST, wt, BM, labs, GI, POC, nutrition status. Will continue to monitor per moderate nutrition risk guidelines
--- NOTE | 2016-11-02 12:30 | NUR ---
HIDA Pt taken off the unit for completion of HIDA Scan, No complains of increased pain or SOB. 2L O2 via NC. Addendum: 11/02/16 at 1537 by BASHIR DUENAS RN Pt back from scan, lunch heated and pt eating, tele monitor in place,
--- NOTE | 2016-11-02 13:29 | PCM.PNMED ---
Subjective Date of Service Nov 02, 2016 Subjective Itching has actually improved some overnight the addition of when necessary opiate, oxycodone. Disease continuation with antihistamines Benadryl and hydroxyzine which have been ineffective prior. Shortness of breath though still present she believes has improved, following yesterday's dialysis treatment, she tolerated it well. Has no other acute complaints at this time. Denies any significant pain. Appetite adequate. Exam Vital Signs Vital Sign - Last Date Time Temp Pulse Resp B/P Pulse Ox O2 Delivery O2 Flow Rate FiO2 11/02/16 09:15 37.0 97 20 154/75 96 Nasal Cannula 2.00 Intake and Output 11/01/16 11/01/16 11/02/16 Cumulative From/Thru 15:00 23:00 07:00 10/30/16 10:20 - 11/02/16 06:20 Intake Total 620 ml 100 ml 1762 ml Output Total 2000 ml 0 ml 2000 ml Balance -2000 ml 620 ml 100 ml -238 ml Intake Oral 620 ml 100 ml 1742 ml IV Total 20 ml Output Urine Total 0 ml 0 ml Ultrafiltrate 2000 ml 2000 ml # Voids 1 1 # Bowel Movements 0 0 Exam General: Alert, Oriented X3, Cooperative, no acute Distress Neck: Supple Chest & Lungs: Clear to auscultation & percussion Cardiovascular: Regular Rate/Rhythm Abdomen: Non-tender, Non-distended Extremities: No cyanosis/clubbing/edema bilat Neurological: Patient is highly restless with apparently unintentional motions due to tardive dyskinesia affecting upper and lower extremities as well as face. Otherwise nonfocal examination, stable from admission. IVs and Medications Medications Reviewed: Medications were reviewed in detail Lab and Diagnostics Result Diagram: 10/31/16 0600 11/02/16 1029 Assessment & Plan 61-year-old female multiple comorbidities including end-stage renal disease, coronary artery disease, in addition to hypoxia and a progressive elevation of her bilirubin, admitted for further medical evaluation of both cardiopulmonary functioning in addition to hepatic functioning in regard to elevated bilirubin and liver function. #. Elevated troponin/coronary artery disease/dyspnea - Troponin elevation remained stable, as did CK readings. - A Complete echocardiogram is ordered and pending, last conducted in 2014 demonstrating ejection fraction of 50%, now diminished to 30% on yesterday's study with evidence of hypokinesis. - Additional nuclear medicine stress test is ordered and demonstrates similar wall motion abnormality but no evidence of reversible ischemia. - Cardiology has been consulted and we continue to appreciate their recommendations - Dr. Loera feels this dilated cardiomyopathy is not the result of coronary artery disease, and may be optimally managed medically. More aggressive diuresis as well will play a role. - Supplemental oxygen to be provided as needed, continue to monitor on telemetry. #. Hyperbilirubinemia/pruritus/transaminitis/Liver mass - Underlying etiology of this condition remains unclear - Continue to trend liver functions in addition to bilirubin levels - MRCP inconclusive due to involuntary motion, US abd pending, CT Abd records requested from [facility] - AFP tumor marker is also pending to consider possible cancerous process. - GI consulted we continue to appreciate recommendations - HIDA scan is currently pending based on pericolic fluid demonstrated on yesterday's ultrasound. - Underlying hyper-bilirubinemia such as show Gilbert's disease may also be a contributing factor. - GI does not believe given the degree of elevation that bilirubin could be a cause of patient's refractory itching. #Severe refractory Pruritus: - Trial Lactulose to aid in Ammonia excretion has been continued given improving condition is not clear what role this is playing - Trial Opiate agonist as seemed off her best relief today in conjunction with lactulose and continue an antihistamine therapy. - We will continue oxycodone 5 mg when necessary in addition to other medications previously prescribed - Uremia may also be playing a role, so patient's improvement could also be explained by more aggressive dialysis treatment undertaken by our nephrology consult Dr. Jamison #End stage renal disease - Patient is dialysis dependent - Noted above it may be that previous therapies have been under diuresing and leaving patient with excessive volume - Uremia as well has not been adequately addressed prior, which may be contributing factor to purchase described above - Continue to appreciate nephrology's consultation, and continued assistance with dialysis patient regular schedules Saturday and Saturday. #Diabetes mellitus type II - Continue patient on sliding scale insulin - We will hold home oral medications at this time is contrasted studies may be needed during hospitalization. #Tardive Dyskinesia - Continue home medications once reconciled. - Ropinirole Disposition: Patient's medical condition is complex suffering from multiple comorbid conditions all of which certainly require further evaluation and treatment, though certainly not all require continued inpatient hospitalization. We will work to optimize patient's cardiac medications while continuing gastrointestinal workup and more aggressive diuresis. Patient may be stable for home discharge next 1-2 days with optimize cardiac treatment, or further workup of gastrointestinal, renal, and other medical conditions in outpatient setting. Pain Evaluation: Adequate Pain Control GI Prophylaxis: Not indicated VTE Mechanical Devices: Intermittant Pneumatic CD Resuscitation Status: CPR: Attempt Resuscitation Time spent 35 minutes Archie Astorga DO Nov 02, 2016 13:29
--- NOTE | 2016-11-02 15:04 | PCM.PNNEPH ---
Subjective Date of Service Nov 02, 2016 Subjective Pt. doing well except for pruritus which has been chronic, case discussed with GI and 2 of the more common causes are liver disease and uremia. Her liver function is good and she is well dialyzed. Apparently she has seen allergy before and would rec. a f/u evaluation. Perhapsan H2 almaz would offer some benefit. Exam Vital Signs Vital Sign - Last Date Time Temp Pulse Resp B/P Pulse Ox O2 Delivery O2 Flow Rate FiO2 11/02/16 09:15 37.0 97 20 154/75 96 Nasal Cannula 2.00 Intake and Output 11/01/16 11/01/16 11/02/16 Cumulative From/Thru 15:00 23:00 07:00 10/30/16 10:20 - 11/02/16 06:20 Intake Total 620 ml 100 ml 1762 ml Output Total 2000 ml 0 ml 2000 ml Balance -2000 ml 620 ml 100 ml -238 ml Intake Oral 620 ml 100 ml 1742 ml IV Total 20 ml Output Urine Total 0 ml 0 ml Ultrafiltrate 2000 ml 2000 ml # Voids 1 1 # Bowel Movements 0 0 Exam Lungs clear, heart RRw/soft SM, abdomen +BS, no tenderness rebound or guarding, no edema or rashes Lab and Diagnostics Result Diagram: 10/31/16 0600 11/02/16 1029 Plan Impression Impression #1ESRD #2 chronic pruritus Plan 1. pt. can be d/c'd per primary team Lee Jamison DO Nov 02, 2016 15:04
--- NOTE | 2016-11-02 16:07 | CONS ---
[address] [address] CONSULTATION REPORT PATIENT: SHANTE MROA : 1955 MR#: [id number] ADMIT: 10/30/2016 JOB ID: [id number] DATE OF SERVICE: 11/02/2016 CARDIOLOGY CONSULTATION: REASON FOR CONSULTATION: I had been asked by the hospitalist to see this patient for evaluation of positive troponins and cardiomyopathy. NARRATIVE: She presented two days ago on October 30 to the emergency department with a month-long history of diffuse pruritus in addition to worsening dyskinesias. It was also apparent that she was sleeping poorly and complaining of an increased cough. Review of her outpatient records indicates that she saw Dr. Burks on September 11 symptoms of prominent, fairly severe paroxysmal coughing, associated with dyspnea and mild hypoxia. A chest x-ray at that time demonstrated bilateral pleural effusions and bibasilar opacities. She was treated with bronchodilators and I believe a brief trial of outpatient antibiotic therapy. From a cardiac standpoint this patient had no complaints of chest discomfort at all when she presented to the emergency department on the . Serial troponins have been collected which have been moderately abnormal but not in a discrete increased/decreased pattern that one would see with an acute coronary syndrome, and her levels are quite consistent with her history of end-stage renal insufficiency. As part of her evaluation, however, she had an echocardiogram done demonstrating diffuse left ventricular hypokinesis with an ejection fraction of around 30% to 35% with evidence of mild to moderate right ventricular enlargement and dysfunction, and a paradoxical septal motion consistent with right ventricular volume overload with mild to moderate pulmonary hypertension and fairly severe tricuspid regurgitation noted. This patient's past cardiac history dates back to a consultation with Dr. Solo in our office in February 2013, for a subtly abnormal nuclear cardiac stress study in the setting of possible candidacy for renal transplantation. Diagnostic coronary angiography was performed at that time by Dr. Solo which demonstrated mild intraluminal atherosclerotic plaquing but no obstructive coronary artery disease. She subsequently underwent a repeat nuclear cardiac stress study in January 2014, which demonstrated no evidence of significant reversible ischemia, and a stress echocardiogram was performed in March 2015, which was a dobutamine stress echo, stopped due to significant hypertension related to the dobutamine infusion and had a lower heart rate than her target heart rate but again, demonstrating no evidence of stress-induced ischemia. Her last visit to our office in June of this year was notable for the fact that she had obvious tardive dyskinesia, which was relatively new, and a fairly new persistent cough in the setting of moderate exertional dyspnea and this was not felt likely cardiac related and no further investigation was made. Her listed home medications in the current chart differ somewhat from what is in her outpatient records but apparently include at least aspirin 81 mg a day and carvedilol 25 mg twice daily, which she has been on for some time, and rosuvastatin 40 mg a day, which she has also been on for some time. She is on a number of psychotropic medications including bupropion, gabapentin, nortriptyline, paroxetine and ropinirole, and has been seen by Neurology for tardive dyskinesias felt likely related to a five-year history of Reglan for gastroparesis and nausea. In addition to those medications, she is on chronic insulin, omeprazole and a couple of other medications for her renal insufficiency. I have looked for this patient on three separate occasions today, and she has not been in her room. I presume that she is at dialysis and I will not likely have an opportunity to see her personally today but will follow up tomorrow to talk with her and examine her and leave further impressions at that time. I have had an opportunity to review all of her previous chest x-rays, her CT scan and her echocardiograms. It is notable that her oldest chest x-ray in the PAC system is from February 2016, and this x-ray shows bilateral pleural effusions, some plate-like atelectasis and perhaps scarring involving both lung bases and evidence of moderate cardiomegaly. Her x-ray on the current admission, in fact, does not appear significantly different from her x-ray from February 2016. Her echocardiogram demonstrates a significant increase in the size of her right ventricle compared with her prior study from 2012. Her left ventricular chamber size is not significantly changed, although it is slightly more spherical, and the right ventricle and left ventricle are both significantly hypokinetic. Tricuspid regurgitation was not apparent on her study in 2012, and since that study, both atrium are significantly enlarged. It is clear that she has significant or severe tricuspid regurgitation and all of these findings are likely not acute but chronic and given the fact that her chest x-rays have shown similar findings dating back to last February, my suspicion is that this cardiomyopathy that was identified dates back at least to last fall. It is also clear to me that she does not have ischemic heart disease. Her CT scans show minimal atherosclerosis in her arterial tree and no evidence of significant coronary calcification and she has had multiple stress tests, none of which demonstrate evidence of reversible ischemia that would indicate the presence of significant obstructive coronary artery disease and are completely consistent with the results of her diagnostic coronary angiogram from 2012. At this point, I believe that her abnormal troponins are simply based on her chronic renal insufficiency and that her cardiomyopathy predates her admission by months and probably dates back to last summer or fall. She has intermittent problems of pulmonary congestion I am sure that account for her symptoms of cough, dyspnea and documented hypoxia and therefore, her nephrologists should be aware that she needs to be adequately diuresed to avoid significant pulmonary congestion in the setting of this cardiomyopathy. It would also be worthwhile to have the nephrologists consider putting her on afterload reduction therapy either with an ZENA inhibitor, or if that is contraindicated, vasodilator such as higher dose hydralazine. At this point, I do not really believe that any further inpatient cardiac evaluation is needed and she could be discharged home when she is stable from a medical standpoint and scheduled for followup with Dr. Solo in our outpatient clinic when next available. Once again, I will plan on trying to talk with this patient and examine her tomorrow if she is still available. I will leave further recommendations based on my talk with her and my exam.
--- NOTE | 2016-11-02 16:08 | DRSVH ---
PROCEDURE: NM HIDA SCAN WITH CCK PHARMACEUTICAL: 5.4 mCi Tc-99m mebrofenin IV; 1.6 mcg CCK IV. INDICATIONS: ABNORMAL BILIRUBIN, R/O CHOLECYSTITIS TECHNIQUE: Following intravenous administration of Tc-99m mebrofenin, sequential anterior abdominal images were obtained. To evaluate the contractile response of the gallbladder in response to Cholecystokinin (CC K), sincalide (0.02 g/kg) was administered by slow intravenous infusion approximately 60 minutes aft er the administration of the radiopharmaceutical. Sequential imaging was continued for [address] the start of CCK infusion. Gallbladder ejection fraction was calculated. COMPARISON: [facility], MR, MR ABD MRCP, 10/31/2016, 21:01. FINDINGS: Biliary scan: There is normal tracer uptake and excretion by the liver. There is normal visualizati on of the intrahepatic ducts, common bile duct, and gallbladder. There is normal tracer transit into the duodenum. CCK stimulation: There is normal contractile response of the gallbladder to CCK infusion. The calcu lated gallbladder ejection fraction is 41%; normal values are above 35%. It has been shown that any patient abdominal pain after CCK administration is related to the rate of CCK injection, rather than to any underlying gallbladder disease (Clinical Nuclear Medicine 2012; 37: 63-70. Journal of Nuclear Medicine 2014; 55: 1-9). IMPRESSION: 1. Normal filling of gallbladder. No evidence for acute cholecystitis. 2. Normal contractile response of gallbladder to CCK infusion. Dictated by: Edmond Santa M.D. on 11/02/2016 at 16:05 Approved by: Edmond Santa M.D. on 11/02/2016 at 16:06
--- NOTE | 2016-11-02 18:04 | PCM.PNMED ---
Subjective Date of Service Nov 02, 2016 Subjective denies abd pain nausea vomiting Exam Vital Signs Vital Sign - Last Date Time Temp Pulse Resp B/P Pulse Ox O2 Delivery O2 Flow Rate FiO2 11/02/16 15:48 36.7 85 20 144/76 93 11/02/16 09:15 Nasal Cannula 2.00 Intake and Output 11/01/16 11/01/16 11/02/16 Cumulative From/Thru 15:00 23:00 07:00 10/30/16 10:20 - 11/02/16 06:20 Intake Total 620 ml 100 ml 1762 ml Output Total 2000 ml 0 ml 2000 ml Balance -2000 ml 620 ml 100 ml -238 ml Intake Oral 620 ml 100 ml 1742 ml IV Total 20 ml Output Urine Total 0 ml 0 ml Ultrafiltrate 2000 ml 2000 ml # Voids 1 1 # Bowel Movements 0 0 Exam pt is alert oriented and comfortable HEENT no icertus LUNG cleat but decreased breath sounds CV RRR S1S2 ABD soft nt nd nabs EXT no pitting edema of ankles Lab and Diagnostics Result Diagram: 10/31/16 0600 11/02/16 1029 Assessment & Plan This is a lady who has mild elevation of bilirubin and elevation of alkaline phosphatase. The ultrasound does not show evidence of fatty liver, but it was a limited exam. There was no liver mass, no gallstones, gallbladder wall was thickened at 4 mm, and small amount of pericholecystic fluid. Negative for sonographic Duran sign. But HIDA scan is negative. No liver lesion noted, but there is some question that there could be acalculous cholecystitis. The elevated bilirubin and alkaline phosphatase can indicate there could be acalculous cholecystitis. Therefore, recommend: 1. Would obtain GGT. 2. I do not believe that her pruritus is caused by the abnormal LFTs. If this is not due to the gallbladder, another differential that could be is due to Gilbert's. However, Gilbert's usually does not cause this much elevation of the alkaline phosphatase. Elevation of the alkaline phosphatase could be also from the bones as well. She is probably a likely candidate with osteoporosis; therefore, getting dexa scan should be considered. 3. If pruitis continues, you can try trial of cholestramine. there is minimal side effect with this. I spoke with nephrology and they do not believe that the pruitis is due to renal issue. 4. Stop reglan 5. Liver lesion was noted to be 1-1.2 cm and indeterminant. To better characterize the lesion, patient will need MRI or multiphasic CT scan. 6. At this point, her GI symptoms are all gone and tolerating her diet. There is elevated alk phospatase level. IF ggt is elevated, the cholestasis can be in DDx as well as infiltrating process in the liver. Therefore that is why we need a good imaging from MRI MRCP and or CT of liver multiphasic. Without these imaging, I can not give accurate impression. Another possibility is cholestasis from medications including opiates. But again, we need good imaging. Once a high quality imaging is available, please reconsult. GI Prophylaxis: Not indicated VTE Mechanical Devices: Intermittant Pneumatic CD Resuscitation Status: CPR: Attempt Resuscitation Jacob Crisostomo MD Nov 02, 2016 17:45
[2016-11-02] MEDS: PARoxetine 20 mg Tablet PO SCH (20:25)
[2016-11-02] MEDS: buPROPion SR 150 mg ER12 Tablet PO SCH (20:25)
[2016-11-02] MEDS: Insulin GLARgine 100 Unit/mL Syringe SUBQ SCH (22:10)
[2016-11-02] MEDS: hydrOXYzine Pamoate 25 mg Capsule PO PRN (23:25)
[2016-11-03] VITALS (8 sets, daily range): BP systolic 115–158; BP diastolic 70–82; PULSE 82–94; RESP 20; O2SAT 93–97
[2016-11-03 05:15] LABS: BASOPHILS % (AUTO) 0.3 % (0-3); EOSINOPHILS % (AUTO) 2.4 % (0-5); MONOCYTES % (AUTO) 13.1 % (4-12); Mean Corpuscular Hemoglobin 26.5 pg (27.0-35.0); Mean Corpuscular Volume 80.4 fL (81-100); NEUTROPHILS % (AUTO) 61.3 % (40-74); Platelet Count 172 bil/L (150-400)
--- NOTE | 2016-11-03 05:41 | NUR ---
Ear Pain / O2 Sats c/o ear pain 11/19 with onset sometime 1-2 weeks ago, described as ache or throbbing, relieved by Roxicodone/Vistaril but unknown etiology. O2 Sat's 95% on 2L also used at home, when on room air desat's to mid 80's.
[2016-11-03] MEDS: Insulin LISPRO 300 Unit/3 mL Inj SUBQ SCH ×4 (07:46→21:53)
[2016-11-03] MEDS: Pantoprazole 40 mg ER24 Tablet PO SCH (08:23)
[2016-11-03] MEDS: Lactulose 20 Gm/30 mL 30 mL Syrup PO SCH (08:23)
--- NOTE | 2016-11-03 09:05 | NUR ---
SAUL signed RICK Castro
--- NOTE | 2016-11-03 09:06 | NUR ---
Pt arrived to [facility]: Pt arrived to [facility] for dialysis. Pt appears stable at time of arrival. Call placed to primary nurse for report. Proxly aware of transfer. Addendum: 11/03/16 at 1336 by DOUGLAS AKINS RN Pt completed treatment and may return to unit. Report called to primary nurse Erik Cm RN. Proxly aware of transfer back to 853.
--- NOTE | 2016-11-03 10:10 | NUR ---
Off Unit: Patient transported to [facility] @ approx 0845 in bed to room 244. manufacturing production technician notified. Complained of ear pain 8/10 on pain scale. Roxicodone administered. Report given to Carin. No apparent distress noted at time of transport. at bedside at time of transport. Addendum: 11/03/16 at 1242 by ALVA CHOU RN Patient remains off unit at this time. Unable to perform 4hr IV assessment and pain assessment. Will follow up when returns to unit.
--- NOTE | 2016-11-03 10:36 | PCM.PNMED ---
Subjective Date of Service Nov 03, 2016 Subjective tolerating diet and denies abd pain n/v Exam Vital Signs Vital Sign - Last Date Time Temp Pulse Resp B/P Pulse Ox O2 Delivery O2 Flow Rate FiO2 11/03/16 09:05 87 11/03/16 05:48 36.4 20 115/76 97 Nasal Cannula 2.00 Intake and Output 11/02/16 11/02/16 11/03/16 Cumulative From/Thru 15:00 23:00 07:00 10/30/16 10:20 - 11/03/16 06:36 Intake Total 500 ml 400 ml 2662 ml Output Total 2000 ml Balance 500 ml 400 ml 662 ml Intake Oral 500 ml 400 ml 2642 ml IV Total 20 ml Output Urine Total 0 ml Ultrafiltrate 2000 ml # Voids 1 1 3 # Bowel Movements 2 0 2 Exam patient is alert oriented and comfortable HEENT no icterus LUNG CTA CV RRR S1S2 Abd soft nt nd nabs ext no pitting edema of ankles Lab and Diagnostics Result Diagram: 11/03/16 0445 11/03/16 0445 Assessment & Plan This is a lady who has mild elevation of bilirubin and elevation of alkaline phosphatase. The ultrasound does not show evidence of fatty liver, but it was a limited exam. There was no liver mass, no gallstones, gallbladder wall was thickened at 4 mm, and small amount of pericholecystic fluid. Negative for sonographic Duran sign. No liver lesion noted, but there is some question that there could be acalculous cholecystitis. The elevated bilirubin and alkaline phosphatase can indicate there could be acalculous cholecystitis. But HIDA scan is negative. Therefore, recommend: 1. Would obtain GGT. Alk phos [phone]. Not getting any better. 2. I do not believe that her pruritus is caused by the abnormal LFTs. If this is not due to the gallbladder, another differential that could be is due to Gilbert's. However, Gilbert's usually does not cause this much elevation of the alkaline phosphatase. Elevation of the alkaline phosphatase could be also from the bones as well. She is probably a likely candidate with osteoporosis; therefore, getting dexa scan should be considered. 3. If pruitis continues, you can try trial of cholestramine. there is minimal side effect with this. I spoke with nephrology and they do not believe that the pruitis is due to renal issue. 4. Liver lesion was noted to be 1-1.2 cm and indeterminant. To better characterize the lesion, patient will need MRI or multiphasic CT scan. 5. At this point, her GI symptoms are all gone and tolerating her diet. There is elevated alk phospatase level. IF ggt is elevated, the cholestasis can be in DDx as well as infiltrating process in the liver. Therefore that is why we need a good imaging from MRI MRCP and or CT of liver multiphasic. Without these imaging, I can not give accurate impression. Another possibility is cholestasis from medications including opiates. But again, we need good imaging. Please stop none essential medication if ggt is elevated. GI Prophylaxis: Not indicated VTE Mechanical Devices: Intermittant Pneumatic CD Resuscitation Status: CPR: Attempt Resuscitation Jacob Crisostomo MD Nov 03, 2016 10:36
--- NOTE | 2016-11-03 10:43 | PCM.PNNEPH ---
Subjective Date of Service Nov 03, 2016 Subjective Overall the patient's about the same. She offers no new complaints and denies any headache, chest pain, or shortness of breath. Once again her main complaint is ongoing pruritus. Spelled her sodium is 134, potassium 4.4, chloride 92, bicarbonate 26, BUN and creatinine 39 and 3.9. Exam Vital Signs Vital Sign - Last Date Time Temp Pulse Resp B/P Pulse Ox O2 Delivery O2 Flow Rate FiO2 11/03/16 09:05 87 11/03/16 05:48 36.4 20 115/76 97 Nasal Cannula 2.00 Intake and Output 11/02/16 11/02/16 11/03/16 Cumulative From/Thru 15:00 23:00 07:00 10/30/16 10:20 - 11/03/16 06:36 Intake Total 500 ml 400 ml 2662 ml Output Total 2000 ml Balance 500 ml 400 ml 662 ml Intake Oral 500 ml 400 ml 2642 ml IV Total 20 ml Output Urine Total 0 ml Ultrafiltrate 2000 ml # Voids 1 1 3 # Bowel Movements 2 0 2 Exam Neck is supple without adenopathy, thyromegaly, or jugular venous distention. Lungs are clear to auscultation. Heart is regular and rhythmical with a soft systolic murmur. Abdomen is soft without any tenderness rebound guarding masses or hepatosplenomegaly. Extremities symmetrically evidence of any clubbing, cyanosis, or edema. Skin turgor is good. Lab and Diagnostics Result Diagram: 11/03/1644411/03/16444 Plan Plan: Impression #1 end-stage renal disease dialysis dependent number to diabetic nephropathy #3 hypertension with hypertensive heart disease and hypertensive nephrosclerosis number for tardive dyskinesia #5 chronic pruritus Recommendation #1 patient was sedated for 4 hours on a max dialyzer, 2 potassium bath, 400 blood flow, 600 dialysate flow, 2000 of heparin and 600 now R, and 1-2 L of fluid to be removed. Dr. Stephen from gastroenterology recommended a GGT to be obtained and I will go ahead and this along with some antimicrosomal and anti-smooth muscle antibodies to evaluate her pruritus. Lee Jamison DO Nov 03, 2016 10:43
--- NOTE | 2016-11-03 12:47 | PCM.PNMED ---
Subjective Date of Service Nov 03, 2016 Subjective She is seen today in her room to follow-up the kidney failure/dialysis, pruritus , elevated alkaline phosphatase, tardive dyskinesia, pulmonary/cardiac disease. She is discussed with Dr. Crisostomo and Dr. Jamison's notes are reviewed. Her is present. They are in a good frame of mind and she reports improved itching overnight. They are requesting a decrease in the Lantus to 20 units. The alkaline phosphatase is back up to 520 after being as low as 493 yesterday. The CMP is normal except for a bilirubin of 1.5. The CBC is normal. Exam Vital Signs Vital Sign - Last Date Time Temp Pulse Resp B/P Pulse Ox O2 Delivery O2 Flow Rate FiO2 11/03/16 08:00 90 11/03/16 05:48 36.4 20 115/76 97 Nasal Cannula 2.00 Intake and Output 11/02/16 11/02/16 11/03/16 Cumulative From/Thru 15:00 23:00 07:00 10/30/16 10:20 - 11/03/16 06:36 Intake Total 500 ml 400 ml 2662 ml Output Total 2000 ml Balance 500 ml 400 ml 662 ml Intake Oral 500 ml 400 ml 2642 ml IV Total 20 ml Output Urine Total 0 ml Ultrafiltrate 2000 ml # Voids 1 1 3 # Bowel Movements 2 0 2 Exam She is alert and oriented 3. She is no apparent distress. There is no obvious pruritus during my visit. She is moving incessantly in a uncontrollable TD fashion. Heart is regular rate and rhythm without murmur Lungs are clear to auscultation bilaterally Abdomen is soft, nontender, no organomegaly, bowel sounds positive Extremities no ankle edema neck exam is normal. 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 #. Elevated troponin/coronary artery disease/dyspnea - Troponin elevation remained stable, as did CK readings. - A Complete echocardiogram, last conducted in 2014 demonstrating ejection fraction of 50%, now diminished to 30% on the current study with evidence of hypokinesis. - Additional nuclear medicine stress test is done and demonstrates similar wall motion abnormality but no evidence of reversible ischemia. - Cardiology has been consulted and we continue to appreciate their recommendations - Dr. Loera feels this dilated cardiomyopathy is not the result of coronary artery disease, and may be optimally managed medically. More aggressive diuresis as well will play a role. - Supplemental oxygen to be provided as needed, continue to monitor on telemetry. #. Hyperbilirubinemia/pruritus/transaminitis/Liver mass - Underlying etiology of this condition remains unclear - Continue to trend liver functions in addition to bilirubin levels - MRCP inconclusive due to involuntary motion, US abd pending, CT Abd records requested from [facility] - AFP tumor marker is also pending to consider possible cancerous process. - GI consulted we continue to appreciate recommendations, proceed with GGT level. Hold all medicines that are reasonable to hold at this point. - HIDA scan is not abnormal - Underlying hyper-bilirubinemia such as show Gilbert's disease may also be a contributing factor. - GI does not believe given the degree of elevation that bilirubin could be a cause of patient's refractory itching. #Severe refractory Pruritus: - Trial Lactulose to aid in Ammonia excretion has been continued given improving condition is not clear what role this is playing - Trial Opiate agonist as seemed off her best relief today in conjunction with lactulose and continue an antihistamine therapy. - We will continue oxycodone 5 mg when necessary in addition to other medications previously prescribed - Uremia may also be playing a role, so patient's improvement could also be explained by more aggressive dialysis treatment undertaken by our nephrology consult Dr. Jamison #End stage renal disease - Patient is dialysis dependent - Noted above it may be that previous therapies have been under diuresing and leaving patient with excessive volume - Uremia as well has not been adequately addressed prior, which may be contributing factor to purchase described above - Continue to appreciate nephrology's consultation, and continued assistance with dialysis patient regular schedules Saturday and Saturday. #Diabetes mellitus type II - Continue patient on sliding scale insulin, and adjust Lantus to 20 units a day. Family are refusing the 28 units prescribed. - We will hold home oral medications at this time is contrasted studies may be needed during hospitalization. #Tardive Dyskinesia secondary to previous Reglan use - Continue home medications once reconciled. -Hold the ropinirole for several days to evaluate the effect on bilirubin and GGT. # Depression - Hold the antidepressants for several days to evaluate the effect on bilirubin and GGT. # Hypothyroidism - Resume levothyroxine when the pruritus etiology is more clear. Disposition: Patient's medical condition is complex suffering from multiple comorbid conditions all of which certainly require further evaluation and treatment, though certainly not all require continued inpatient hospitalization. We will work to optimize patient's cardiac medications while continuing gastrointestinal workup and more aggressive diuresis. Patient may be stable for home discharge next 1-2 days with optimize cardiac treatment, or further workup of gastrointestinal, renal, and other medical conditions in outpatient setting. Pain Evaluation: Adequate Pain Control GI Prophylaxis: Not indicated VTE Mechanical Devices: Intermittant Pneumatic CD Resuscitation Status: CPR: Attempt Resuscitation Time spent 35 minutes GI Prophylaxis: Not indicated VTE Mechanical Devices: Intermittant Pneumatic CD Resuscitation Status: CPR: Attempt Resuscitation Sonia Almodovar MD Nov 03, 2016 09:27
--- NOTE | 2016-11-03 13:45 | NUR ---
Dialysis note: 4 hrs tx 2000 ml net UF Right upper arm fistula, accessed with no problems Pls see DTR for VS details Qb 400-485 Heparin given O2 @ 2L via NC on Tolerated tx, slept at intervals Fistula needle sites clotted w/in 10 min Stable condition at end of tx Report given to Carin QUEVEDO
[2016-11-03] MEDS: Cholestyramine Resin Powder 4 Gm Packet PO SCH (14:20)
[2016-11-03] MEDS ORDERED: Insulin GLARgine 100 Unit/mL Syringe SUBQ SCH (21:00)
[2016-11-03] MEDS: hydrOXYzine Pamoate 25 mg Capsule PO PRN (21:53)
[2016-11-04 00:24] VITALS: BP 145/74; PULSE 90; RESP 20; O2SAT 96
[2016-11-04 04:57] VITALS: BP 150/78; PULSE 89; RESP 20; O2SAT 97
[2016-11-04 05:36] VITALS: PULSE 90
[2016-11-04] MEDS: Insulin LISPRO 300 Unit/3 mL Inj SUBQ SCH ×4 (08:00→21:34)
[2016-11-04] MEDS: Lactulose 20 Gm/30 mL 30 mL Syrup PO SCH (08:26)
[2016-11-04] MEDS: hydrOXYzine Pamoate 25 mg Capsule PO PRN ×2 (08:37→12:07)
[2016-11-04 09:02] VITALS: PULSE 96
[2016-11-04] MEDS: Cholestyramine Resin Powder 4 Gm Packet PO SCH (09:24)
--- NOTE | 2016-11-04 09:27 | NUR ---
Blood Sugar Patient blood sugar at 07:30 was 51. Patient given orange juice and ate breakfast. Blood sugar rechecked 08:30-BS 71. Hospitalist notified. Addendum: 11/04/16 at 1356 by MARY MUNGUIA RN Blood sugar at lunch 123.
--- NOTE | 2016-11-04 11:15 | PCM.PNMED ---
Subjective Date of Service Nov 04, 2016 Subjective She tells me today that she is doing well no nausea vomiting tolerating diet. No abdominal pain blood in the stools black stools. Exam Vital Signs Vital Sign - Last Date Time Temp Pulse Resp B/P Pulse Ox O2 Delivery O2 Flow Rate FiO2 11/04/16 09:02 96 11/04/16 04:57 36.4 20 150/78 97 OxyMask 11/03/16 14:06 2.00 Intake and Output 11/03/16 11/03/16 11/04/16 Cumulative From/Thru 15:00 23:00 07:00 10/30/16 10:20 - 11/04/16 06:18 Intake Total 920 ml 620 ml 4202 ml Output Total 2000 ml 0 ml 0 ml 4000 ml Balance -2000 ml 920 ml 620 ml 202 ml Intake Oral 920 ml 620 ml 4182 ml IV Total 20 ml Output Urine Total 0 ml 0 ml 0 ml Ultrafiltrate 2000 ml 4000 ml # Voids 3 # Bowel Movements 0 2 Exam Patient is alert oriented comfortable Head and neck no icterus Lungs clear Vascular regular rate rhythm no murmurs rubs to Abdomen soft nontender nondistended with normoactive bowel sounds Extremities no pitting edema of the ankles Skin shows no jaundice Lab and Diagnostics Result Diagram: 11/03/16 0445 11/03/16 0445 Assessment & Plan This is a lady who has mild elevation of bilirubin and elevation of alkaline phosphatase. No new alkaline phosphatase level today. GGT is pending. Fractionation of alkaline phosphatase is also pending. No new imaging done. The ultrasound does not show evidence of fatty liver, but it was a limited exam. There was no liver mass, no gallstones, gallbladder wall was thickened at 4 mm, and small amount of pericholecystic fluid. Negative for sonographic Duran sign. No liver lesion noted, but there is some question that there could be acalculous cholecystitis. The elevated bilirubin and alkaline phosphatase can indicate there could be acalculous cholecystitis. But HIDA scan is negative. Clinically she is doing well. It appears even the pruritus is little better. Therefore, recommend: 1. Alkaline phosphatase level today. GGT fractionation of alkaline phosphatase level pending. 2. Cholestyramine seemed to have helped with the pruritus. However, I do not believe that her pruritus is caused by the abnormal LFTs. If this is not due to the gallbladder, another differential that could be is due to Gilbert's. However, Gilbert's usually does not cause this much elevation of the alkaline phosphatase. Elevation of the alkaline phosphatase could be also from the bones as well. She is probably a likely candidate with osteoporosis; therefore , getting dexa scan should be considered. 3. Liver lesion was noted to be 1-1.2 cm and indeterminant. This does not explain the elevation of alkaline phosphatase level to this extent. To better characterize the lesion, patient will need MRI or multiphasic CT scan; if CT scan of the done, please obtain multiphasic not a regular CT with IV contrast. 4. Other possibility of elevated alkaline phosphatase it is due to the liver is due to possible medications. Therefore I will hold off on any nonessential medications. GI Prophylaxis: Not indicated VTE Mechanical Devices: Intermittant Pneumatic CD Resuscitation Status: CPR: Attempt Resuscitation Jacob Crisostomo MD Nov 04, 2016 11:13
[2016-11-04 11:47] VITALS: BP 151/79; PULSE 90; RESP 20
--- NOTE | 2016-11-04 12:01 | NUR ---
Social Work: Continued d/c planning Data: Pt is on day 5 of hospitalization. EMR reviewed. Pt discussed in rounds, MD states pt likely to d/c earliest Saturday. CNA CAREGIVER met with pt regarding d/c plan, no d/c planning needs anticipated at this time per pt and MD. CNA CAREGIVER will continue to follow if needs arise. Assessment: Pt who is independent at baseline. Plan: Pt will d/c home via POV with spouse when medically stable, per MD earliest Saturday. No d/c planning needs anticipated at this time per pt and MD. CNA CAREGIVER will continue to follow if needs arise. RICK Castro
[2016-11-04 12:06] LABS: Bilirubin, Direct 0.9 mg/dL (0.0-0.3)
--- NOTE | 2016-11-04 12:37 | PROG NOTE ---
[address] [address] PROGRESS NOTE PATIENT: SHANTE MORA : 1955 MR#: [id number] ADMIT: 10/30/2016 JOB ID: [id number] DATE: 11/04/2016 SUBJECTIVE: The patient is seen today. I tried to see her yesterday several times but she was off the floor, presumably in dialysis. This morning she is on oxygen therapy. She states that without the oxygen she becomes hypoxemic at night. In talking with her a little further she states that she has had symptoms of fairly severe exertional dyspnea and occasional nocturnal pulmonary congestion over about the past year associated with persistent coughing and this is confirmed by her . She has really had no evaluation for this as an outpatient and I think all of this is consistent with her nondilated nonischemic cardiomyopathy. Her chest x-ray, as I mentioned in my note from yesterday, showed evidence of moderate cardiomegaly and bilateral pleural effusions dating back to February of last year, and the confirms that she has had symptoms of increased exertional dyspnea, nocturnal pulmonary congestion, and coughing ever since last summer. What is also notable is the fact that as I look at her outpatient records her weight has dramatically dropped over the past six months. In fact, she has lost 36 pounds of weight, now 38 pounds of weight, just in the last six months. I also note that her lab work in the outpatient clinic has demonstrated mild elevation in alkaline phosphatases dating back to 2010, but her alkaline phosphatase was only 165 and had been stable for several years at this mild elevation an his late as January 31 of last year. OBJECTIVE: This patient has prominent jugular venous distention visible at the angle of the jaw in the sitting position. She has evidence of pulmonary congestion at the right lung base and evidence of bilateral pleural effusions and rales. Cardiac auscultation is notable for a regular rhythm. She has no particular precordial heave. Heart tones are somewhat distant. She has a soft left lower sternal border murmur. Distal extremities do not demonstrate significant edema and her abdominal examination does not demonstrate any obvious hepatic enlargement or tenderness. Vital signs are notable for relatively persistent hypertension and heart rates in the 80s and 90s. Her outpatient records indicate that she was on low-dose Lasix at 20 mg twice daily and was also on 25 mg of carvedilol twice daily. The patient also tells me that she had taken lisinopril in the remote past. RECOMMENDATIONS: This patient is clearly volume overloaded, with symptomatic pulmonary congestion and high central venous pressures, and despite significant weight loss over the past six months she probably needs to be more aggressively diuresed. If she responds to oral diuretics, perhaps an increase in her oral furosemide would also be helpful. If tolerated she needs to be on a vasodilator such as hydralazine or lisinopril. I will want the nephrologists to follow up on this recommendation. I also think she would be better served with a higher dose of carvedilol at 25 mg twice a day which she has been on as an outpatient. I am also quite concerned about this patient's fairly precipitous weight loss over the past six months in conjunction with a fairly significant change in her alkaline phosphatase. It does not appear that there is an obvious hepatic source and I wonder whether not a skeletal scan to look for possible bone cancer might be indicated. I will leave this to her hospital doctors to follow up on. I will sign off on her cardiac care at this point in time. When she is ready to be discharged, she should be seen back for followup in our office by Dr. Solo, her primary mid level developer.
[2016-11-04] MEDS: Benzocaine-Menthol Lozenge 2/Pkg PO PRN ×2 (17:13→21:41)
--- NOTE | 2016-11-04 18:42 | PCM.PNMED ---
Subjective Date of Service Nov 04, 2016 Subjective She is seen today to follow up on the Pruritus, Elevated Alk Phose, ESRD, Dialysis and Cardiomyopathy. She continues to intermittently itch, without any obvious effort/awareness to suppress it. Because of her movements we have been unable to do a bone scan or MRI of her Liver. She is discussed with Dr. Loera and with Dr. Crisostomo again today. The possibility of a Liver MRCP or Liver CT under anesthesia is considered. The Alk Phos and GGT blood tests will not be back from [place] for 2 more days, per lab discussions today. Exam Vital Signs Vital Sign - Last Date Time Temp Pulse Resp B/P Pulse Ox O2 Delivery O2 Flow Rate FiO2 11/04/16 18:21 Supplement Oxygen 11/04/16 11:47 36.7 90 20 151/79 11/04/16 04:57 97 11/03/16 14:06 2.00 Intake and Output 11/03/16 11/03/16 11/04/16 Cumulative From/Thru 15:00 23:00 07:00 10/30/16 10:20 - 11/04/16 06:18 Intake Total 920 ml 620 ml 4202 ml Output Total 2000 ml 0 ml 0 ml 4000 ml Balance -2000 ml 920 ml 620 ml 202 ml Intake Oral 920 ml 620 ml 4182 ml IV Total 20 ml Output Urine Total 0 ml 0 ml 0 ml Ultrafiltrate 2000 ml 4000 ml # Voids 3 # Bowel Movements 0 2 Exam Incessant TD movements Limited insight and understanding of her health factors and questions present and understanding Heart: RRR without murmur Lungs: CTAB Abdomen: Soft, Bowel sounds normal, not tender. Ext: No ankle edema. IVs and Medications Medications Reviewed: Medications were reviewed in detail Lab and Diagnostics Result Diagram: 11/03/16 0445 11/03/16 0445 Assessment & Plan #. Cardiomyopathy - Troponin elevation remained stable, as did CK readings. - A Complete echocardiogram, last conducted in 2014 demonstrating ejection fraction of 50%, now diminished to 30% on the current study with evidence of hypokinesis. - Additional nuclear medicine stress test is done and demonstrates similar wall motion abnormality but no evidence of reversible ischemia. - Cardiology has been consulted and we continue to appreciate their recommendations - Dr. Loera feels this dilated cardiomyopathy is not the result of coronary artery disease, and may be optimally managed medically. More aggressive diuresis as well will play a role. - Supplemental oxygen to be provided as needed, continue to monitor on telemetry. #. Hyperbilirubinemia/pruritus/transaminitis/Liver mass - Underlying etiology of this condition remains unclear - Continue to trend liver functions in addition to bilirubin levels - MRCP inconclusive due to involuntary motion, US abd unhelpful, CT Abd records requested from [facility] - AFP tumor marker is also pending to consider possible cancerous process. - GI consulted we continue to appreciate recommendations, proceed with GGT level , unfortunately that will take 2 more days to come back. Hold all medicines that are reasonable to hold at this point. - HIDA scan is not abnormal - Underlying hyper-bilirubinemia such as show Gilbert's disease may also be a contributing factor. - GI does not believe given the degree of elevation that bilirubin could be a cause of patient's refractory itching. Will need to discuss on Saturday with the patient and with Radiology/ Anesthesiology obtaining an MR or CT of the Liver under General Anesthesia to suppress the movements. No other less problematic approach has been able to be accomplished so far. #Severe refractory Pruritus: - Trial Lactulose to aid in Ammonia excretion has been continued given improving condition is not clear what role this is playing - Trial Opiate agonist as seemed off her best relief today in conjunction with lactulose and continue an antihistamine therapy. - We will continue oxycodone 5 mg when necessary in addition to other medications previously prescribed - Uremia may also be playing a role, so patient's improvement could also be explained by more aggressive dialysis treatment undertaken by our nephrology consult Dr. Jamison #End stage renal disease - Patient is dialysis dependent - Noted above it may be that previous therapies have been under diuresing and leaving patient with excessive volume - Uremia as well has not been adequately addressed prior, which may be contributing factor to purchase described above - Continue to appreciate nephrology's consultation, and continued assistance with dialysis patient regular schedules Saturday and Saturday. #Diabetes mellitus type II - Continue patient on sliding scale insulin, and adjust Lantus to 15 units a day , due to hypoglycemia overnight. - We will hold home oral medications at this time is contrasted studies may be needed during hospitalization. #Tardive Dyskinesia secondary to previous Reglan use - Continue home medications once reconciled. -Hold the ropinirole for several days to evaluate the effect on bilirubin and GGT. # Depression - Hold the antidepressants for several days to evaluate the effect on bilirubin and GGT. # Hypothyroidism - Resume levothyroxine when the pruritus etiology is more clear. Disposition: Patient's medical condition is complex suffering from multiple comorbid conditions all of which certainly require further evaluation and treatment, before discharge. We will work to optimize patient's cardiac medications while continuing gastrointestinal workup and more aggressive diuresis. Patient may be stable for home discharge next 2-3 days with optimize cardiac treatment, or further workup of gastrointestinal, renal, and other medical conditions in outpatient setting. GI Prophylaxis: Not indicated VTE Mechanical Devices: Intermittant Pneumatic CD Resuscitation Status: CPR: Attempt Resuscitation Sonia Almodovar MD Nov 04, 2016 18:42
[2016-11-04 20:56] VITALS: BP 145/78; PULSE 89; RESP 21; O2SAT 96
[2016-11-04] MEDS: Insulin GLARgine 100 Unit/mL Syringe SUBQ SCH (21:41)
[2016-11-05 05:24] VITALS: BP 137/71; PULSE 83; RESP 16; O2SAT 91
--- NOTE | 2016-11-05 05:55 | NUR ---
Oxygen needs: Pt's SpO2 in the mid 90s with 2L Oxymask in place. States having shortness of breath off and on, both at rest and with activity; no pattern per pt. While sleeping, pt was noted to take the oxymask off, SpO2 decreasing to 86%. CPOX placed, pt again mid 90s with the 2L oxymask. Blood sugar at HS was 175, scheduled Lantus administered at the reduced dose. This mornings sugar is 157.
[2016-11-05] MEDS: Insulin LISPRO 300 Unit/3 mL Inj SUBQ SCH ×4 (08:30→22:02)
[2016-11-05] MEDS: Cholestyramine Resin Powder 4 Gm Packet PO SCH (09:09)
[2016-11-05] MEDS: Lactulose 20 Gm/30 mL 30 mL Syrup PO SCH (09:09)
[2016-11-05] MEDS: hydrOXYzine Pamoate 25 mg Capsule PO PRN ×2 (10:52→22:03)
--- NOTE | 2016-11-05 10:57 | NUR ---
SAUL Signed at 1034AM
--- NOTE | 2016-11-05 11:45 | PCM.PNNEPH ---
Subjective Date of Service Nov 05, 2016 Subjective GGT came back significantly elevated. GI has been following her. She has some shortness of breath and required oxygen mask. Her last dialysis was performed on Saturday. She constantly has abnormal movement. She complains of itching which has been stable. Exam Vital Signs Vital Sign - Last Date Time Temp Pulse Resp B/P Pulse Ox O2 Delivery O2 Flow Rate FiO2 11/05/16 10:30 Supplement Oxygen 11/05/16 05:24 36.2 83 16 137/71 91 2.00 Intake and Output 11/04/16 11/04/16 11/05/16 Cumulative From/Thru 15:00 23:00 07:00 10/30/16 10:20 - 11/05/16 05:42 Intake Total 1240 ml 5442 ml Output Total 4000 ml Balance 1240 ml 1442 ml Intake Oral 1240 ml 5422 ml IV Total 20 ml Output Urine Total 0 ml Ultrafiltrate 4000 ml # Voids 1 4 # Bowel Movements 0 2 Exam GENERAL: The patient in no apparent distress, and alert and oriented x3. On oxygen mask VITAL SIGNS: as documented HEENT: Head is normocephalic and atraumatic. Extraocular muscles are intact. Pupils are equal, round. NECK: Supple, (+) elevation of JVD, No carotid bruits. No lymphadenopathy or thyromegaly. LUNGS: Occasional wheezing bilaterally, bicarbonate was at the bases. HEART: Normal S1/S2, Regular rate and rhythm, no murmurs, rubs or gallops. ABDOMEN: Soft, nontender, and nondistended. Positive bowel sounds. No hepatosplenomegaly was noted. EXTREMITIES: Without any cyanosis, clubbing, rash, lesions or edema. NEUROLOGIC: The patient is oriented to person, place and time. Strength and sensation are grossly intact. Lab and Diagnostics Result Diagram: 11/03/16 0445 11/05/16 0618 Plan Impression 1. End-stage renal disease on hemodialysis every Saturday with chronic hypervolemia. 2. Abnormal liver function, elevation of TB, alkaline phosphatase and GGT. 3. Chronic pruritus. 4. HFrEF. 5. Type 2 diabetes with renal manifestation. 6. Tardive dyskinesia secondary to Reglan use. Plan: We will provide an extra hemodialysis today for 3 hours, ultrafiltration as tolerated 2-3 L Patient will continue her routine hemodialysis schedule tomorrow. Ananthapanyasut,Wanwarat MD Nov 05, 2016 11:44
--- NOTE | 2016-11-05 14:01 | NUR ---
Dialysis/Itching Patient scheduled for additional dialysis this afternoon. Patient having increased itching this morning. Benadryl/Vistaril/Oxycodone combo providing little to no relief. Hospitalist notified.
[2016-11-05] MEDS ORDERED: Lidocaine Topical 5% Patch TOPICAL PRN (14:25)
--- NOTE | 2016-11-05 14:45 | PCM.PNMED ---
Subjective Date of Service Nov 05, 2016 Subjective Hx of ESRD on dialysis, DM II, HTN, tardrive dyskinesia, suspected liver mass no larger than 1 x 1.5 cm here with itching and dyspnea. Elevated troponins were attributed to CKD. GI has her on cholestyramine. It seems both nephro and GI feel itching is not due to the respective organ pathology. She can not lay still for MRI, keep showing motion artifacts. Patient is concerned about itching not resolved with hydroxyzine and oxycodone. She is writhing in bed because of tardive dyskinesia and itching. She is about to go to dialysis, no other concerns Exam Vital Signs Vital Sign - Last Date Time Temp Pulse Resp B/P Pulse Ox O2 Delivery O2 Flow Rate FiO2 11/05/16 05:24 36.2 83 16 137/71 91 OxyMask 2.00 Intake and Output 11/04/16 11/04/16 11/05/16 Cumulative From/Thru 15:00 23:00 07:00 10/30/16 10:20 - 11/05/16 05:24 Intake Total 1240 ml 5442 ml Output Total 4000 ml Balance 1240 ml 1442 ml Intake Oral 1240 ml 5422 ml IV Total 20 ml Output Urine Total 0 ml Ultrafiltrate 4000 ml # Voids 1 4 # Bowel Movements 0 2 Exam General: Incessant TD movements Psych: Limited insight and understanding of her health factors and questions, present and understanding Heart: RRR without s3/s4 murmur Lungs: CTA B/L, no crackles or wheezes Abdomen: Soft, Bowel sounds normal, not tender. Ext: No ankle edema. Skin: About 7 cm measuring linear lesion on the back of her lower right lower leg most of it scabbed over but there is some drainage coming from the top of the lesion where it is the widest IVs and Medications IV Fluids None Medications Reviewed: Medications were reviewed in detail Lab and Diagnostics Laboratory Tests Test 11/05/16 06:18 11/05/16 10:14 Sodium Level 136mEq/L (134-144) Potassium Level 4.6mEq/L (3.5-5.2) Chloride Level 95mEq/L (97-108) Carbon Dioxide Level 25mmol/L (18-29) Blood Urea Nitrogen 26mg/dL (8-27) Creatinine 3.91mg/dL (0.57-1.00) Estimat Glomerular Filtration Rate 17mL/min (>59) Glucose Level 184mg/dL (60-99) Calcium Level 9.1mg/dL (8.5-10.1) Total Bilirubin 1.4mg/dL (0.0-1.2) Aspartate Amino Transf (AST/SGOT) 28U/L (0-50) Alanine Aminotransferase (ALT/SGPT) 19U/L (0-32) Alkaline Phosphatase 466U/L (25-165) Total Protein 6.6g/dL (6.4-8.4) Albumin 3.2g/dL (3.4-5.0) Phosphorus Level 4.3mg/dL (2.5-4.9) Result Diagram: 11/03/1644411/03/16444 X-Rays, CTs and MRIs PROCEDURE: NM HIDA SCAN WITH CCK PHARMACEUTICAL: 5.4 mCi Tc-99m mebrofenin IV; 1.6 mcg CCK IV. INDICATIONS: ABNORMAL BILIRUBIN, R/O CHOLECYSTITIS IMPRESSION: 1. Normal filling of gallbladder. No evidence for acute cholecystitis. 2. Normal contractile response of gallbladder to CCK infusion. Dictated by: Edmond Santa M.D. on 11/02/2016 at 16:05 Approved by: Edmond Santa M.D. on 11/02/2016 at 16:06 PROCEDURE: US ABDOMEN, LIMITED ([id number]) INDICATIONS: Evaluation of liver mass IMPRESSION: 1. No liver mass visualized sonographically. 2. Thickened and edematous gallbladder wall which could be related to developing acalculus cholecystitis. Correlate clinically. Dr. Astorga given results by the river pilot at 1050 hrs. 11/01/2016. Dictated by: Jc Hernandez RRA Interpreted: Chris Haynes MD on 11/01/2016 at 13:09 Approved by: Chris Haynes M.D. on 11/01/2016 at 16:30 PROCEDURE: MR ABDOMEN MRCP INDICATIONS: Hepatic mass/hyperbilirubinemia IMPRESSION: 1. Essentially nondiagnostic MRCP given patient's extensive involuntary motion during the study. Limited visualization on the coronal T2 HASTE images demonstrate no gross biliary ductal dilatation and a grossly normal appearance the gallbladder. If further characterization of the biliary system is warranted, consider ultrasound to accommodate the patient's involuntary movements. Dictated by: Suzanne Marie M.D. on 10/31/2016 at 21:28 Approved by: Suzanne Marie M.D. on 10/31/2016 at 21:36 PROCEDURE: CT ANGIO CHEST PULMONARY EMBOLISM ([id number]) INDICATIONS: hypoxia IMPRESSION: Suboptimal study due to respiratory motion artifact. Within this constraint, no definite pulmonary embolism identified. Bilateral pleural effusions, left greater the right with adjacent atelectasis. Subpleural, subcentimeter nodular focus probably nodular scarring in the right upper lobe although technically indeterminate. Recommend followup with noncontrast chest CT in 6 months to exclude metastatic/malignant possibilities. Cardiomegaly and CT evidence of decreased cardiac output. Additional chronic and incidental findings as above. Dictated by: Rios Welsh M.D. on 10/30/2016 at 15:19 Approved by: Rios Welsh M.D. on 10/30/2016 at 15:36 PROCEDURE: X-RAY CHEST, TWO VIEWS ([id number]) INDICATIONS: cough IMPRESSION: Subpulmonic left pleural effusion, small in overall size. Bibasilar atelectasis. Heart size at the upper limits of normal (but is not enlarged).. Dictated by: Chris Haynes M.D. on 10/30/2016 at 11:57 Approved by: Chris Haynes M.D. on 10/30/2016 at 11:58 Assessment & Plan #Severe refractory Pruritus: - Trial Lactulose to aid in Ammonia excretion has been continued given improving condition is not clear what role this is playing - Uremia may also be playing a role, so patient's improvement could also be explained by more aggressive dialysis treatment undertaken by our nephrology consult Dr. Jamison -- Capsaicin cream, Lidoderm patch, gabapentin by mouth or ordered, she had good relief with capsaicin cream. # Leg Ulcer: This appears to be loculated. Attempted to drain but no shruthi pus could be expressed. Romero are thick and loculated, she will likely need an o/p procedure. -- Consider clindamycin. # Cardiomyopathy - Troponin elevation remained stable, as did CK readings. - A Complete echocardiogram, last conducted in 2014 demonstrating ejection fraction of 50%, now diminished to 30% on the current study with evidence of hypokinesis. - Additional nuclear medicine stress test is done and demonstrates similar wall motion abnormality but no evidence of reversible ischemia. - Cardiology has been consulted and we continue to appreciate their recommendations - Dr. Loera feels this dilated cardiomyopathy is not the result of coronary artery disease, and may be optimally managed medically. More aggressive diuresis as well will play a role. - Supplemental oxygen to be provided as needed, continue to monitor on telemetry. #. Hyperbilirubinemia/pruritus/transaminitis/Liver mass, POA Improving - Underlying etiology of this condition remains unclear - Continue to trend liver functions in addition to bilirubin levels: Improving - MRCP inconclusive due to involuntary motion, US abd unhelpful, CT Abd records requested from [facility] - AFP tumor marker is also pending to consider possible cancerous process. - GI consulted we continue to appreciate recommendations, proceed with GGT level , unfortunately that will take 2 more days to come back. Hold all medicines that are reasonable to hold at this point. - HIDA scan is not abnormal - Underlying hyper-bilirubinemia such as show Gilbert's disease may also be a contributing factor. - GI does not believe given the degree of elevation that bilirubin could be a cause of patient's refractory itching. --Discussed with Dr Crisostomo as to whether she should get an MRI of the abdomen which is under sedation: He feels her Alk Phos levels are improving, she can return to her GI specialist as outpatient for further workup. -- He recommends f/u CMP in 3 days after d/c #End stage renal disease, Dialysis dependent, chronic Active - Patient is dialysis dependent - Noted above it may be that previous therapies have been under diuresing and leaving patient with excessive volume - Uremia as well has not been adequately addressed prior, which may be contributing factor to purchase described above - Continue to appreciate nephrology's consultation, and continued assistance with dialysis patient regular schedules Saturday and Saturday. #Diabetes mellitus type II chronic Active - Continue patient on sliding scale insulin, and adjust Lantus to 15 units a day , due to hypoglycemia overnight. - We will hold home oral medications at this time is contrasted studies may be needed during hospitalization. #Tardive Dyskinesia secondary to previous Reglan use, chronic Active - Continue home medications - Hold the ropinirole for several days to evaluate the effect on bilirubin and GGT. # Depression, chronic Active - Restart antidepressant # Hypothyroidism, chronic Active - Resume levothyroxine Disposition: Patient's medical condition is complex suffering from multiple comorbid conditions all of which certainly require further evaluation and treatment, before discharge. We will work to optimize patient's cardiac medications while continuing gastrointestinal workup and more aggressive diuresis. Patient may be stable for home discharge next 2-3 days with optimize cardiac treatment, or further workup of gastrointestinal, renal, and other medical conditions in outpatient setting. Pain Evaluation: Adequate Pain Control GI Prophylaxis: Not indicated VTE Mechanical Devices: Intermittant Pneumatic CD Resuscitation Status: CPR: Attempt Resuscitation Time spent 25 min Antonette Washington DO Nov 05, 2016 05:40
[2016-11-05 15:05] VITALS: BP 145/78; PULSE 89; RESP 18; O2SAT 96
[2016-11-05 15:08] VITALS: BP 126/99; PULSE 84
--- NOTE | 2016-11-05 15:39 | NUR ---
[facility] [place] for dialysis: Patient arrived via bed to [facility] [place] room 243-2 for ordered dialysis per surfboard maker Cheryl. Patient on 2 L via oxymask. Report received from primary RN.
--- NOTE | 2016-11-05 17:32 | NUR ---
Dialysis note: 2 hr puff tx 2700 mL Net UF right upper arm fistula, accessed without difficulty 2 - 15g needles QB 300 Heparin given O2 on 2L via oxymask Pt restless during tx, but declined additional capsaisin cream for itching needle sites clotted with clamps x 10 min SS, gauze and tape to secure sites Pt returned to floor stable Report given to primary RNJory Please see DTR for complete record of VS
--- NOTE | 2016-11-05 18:08 | NUR ---
Itching Patient reporting 2 episodes of head to toe itching this shift. Combo of Benadryl/Vistaril/oxycodone not effective. Capsaicin cream applied-patient reported good results.
[2016-11-05 19:56] VITALS: BP 136/69; PULSE 92; RESP 18; O2SAT 94
[2016-11-05] MEDS: Insulin GLARgine 100 Unit/mL Syringe SUBQ SCH (22:01)
[2016-11-05] MEDS ORDERED: buPROPion XL 150 mg ER24 Tablet PO ONE (22:05)
[2016-11-06 05:35] VITALS: BP 134/73; PULSE 91; RESP 18; O2SAT 96
--- NOTE | 2016-11-06 05:35 | NUR ---
Itching, Oxygen: Pt had one more episode of itching last evening, declined medication, requested a shower. Itching was decreased after shower, was medicated with Vistaril and Oxycodone at HS for the itching. Denies itchiness at this time. Pt kept oxymask on most all of the night, was found sleeping with mask over her nose and forehead at one time. Connected to the CPOX for spot checks through the night. SpO2 was lower to mid 90s all night with checks.
[2016-11-06] MEDS ORDERED: BUPR-97 PO (06:00)
[2016-11-06] MEDS ORDERED: Capsaicin TOPICAL (06:00)
[2016-11-06] MEDS ORDERED: GABA100C PO (06:00)
[2016-11-06] MEDS ORDERED: INSU100V7 SUBQ (06:00)
[2016-11-06] MEDS: Insulin LISPRO 300 Unit/3 mL Inj SUBQ SCH ×4 (07:52→21:20)
[2016-11-06] MEDS: Cholestyramine Resin Powder 4 Gm Packet PO SCH (08:30)
--- NOTE | 2016-11-06 10:05 | NUR ---
[facility] [place] for dialysis: 0855- Patient arrived via bed to [facility] [place] room 243-1 for ordered dialysis per splitting machine operator helperYas. On 2 L oxymask. Report received from primary RN.
--- NOTE | 2016-11-06 11:35 | PCM.PNNEPH ---
Subjective Date of Service Nov 06, 2016 Subjective Patient is seen during dialysis. She stated that she is breathing better. Complaining of itchy skin. Exam Vital Signs Vital Sign - Last Date Time Temp Pulse Resp B/P Pulse Ox O2 Delivery O2 Flow Rate FiO2 11/06/16 05:35 36.4 91 18 134/73 96 OxyMask 2.00 Intake and Output 11/05/16 11/05/16 11/06/16 Cumulative From/Thru 15:00 23:00 07:00 10/30/16 10:20 - 11/06/16 06:48 Intake Total 840 ml 560 ml 100 ml 6942 ml Output Total 0 ml 2700 ml 0 ml 6700 ml Balance 840 ml -2140 ml 100 ml 242 ml Intake Oral 840 ml 560 ml 100 ml 6922 ml IV Total 20 ml Output Urine Total 0 ml 0 ml 0 ml Ultrafiltrate 2700 ml 6700 ml # Voids 4 # Bowel Movements 1 1 4 Exam GENERAL: The patient in no apparent distress, and alert and oriented x3. On oxygen mask HEENT: Head is normocephalic and atraumatic. Extraocular muscles are intact. Pupils are equal, round. NECK: Supple, (+) elevation of JVD, No carotid bruits. No lymphadenopathy or thyromegaly. LUNGS: Occasional wheezing bilaterally. HEART: Normal S1/S2, Regular rate and rhythm, no murmurs, rubs or gallops. ABDOMEN: Soft, nontender, and nondistended. Positive bowel sounds. No hepatosplenomegaly was noted. EXTREMITIES: Without any cyanosis, clubbing, rash, lesions or edema. NEUROLOGIC: The patient is oriented to person, place and time. Strength and sensation are grossly intact. Lab and Diagnostics Result Diagram: 11/03/16 0445 11/06/16 0605 X-Rays, CTs and MRIs PROCEDURE: NM HIDA SCAN WITH CCK PHARMACEUTICAL: 5.4 mCi Tc-99m mebrofenin IV; 1.6 mcg CCK IV. INDICATIONS: ABNORMAL BILIRUBIN, R/O CHOLECYSTITIS IMPRESSION: 1. Normal filling of gallbladder. No evidence for acute cholecystitis. 2. Normal contractile response of gallbladder to CCK infusion. Dictated by: Edmond Santa M.D. on 11/02/2016 at 16:05 Approved by: Edmond Santa M.D. on 11/02/2016 at 16:06 PROCEDURE: US ABDOMEN, LIMITED ([id number]) INDICATIONS: Evaluation of liver mass IMPRESSION: 1. No liver mass visualized sonographically. 2. Thickened and edematous gallbladder wall which could be related to developing acalculus cholecystitis. Correlate clinically. Dr. Astorga given results by the pocket maker at 1050 hrs. 11/01/2016. Dictated by: Jc Hernandez [facility] Interpreted: Chris Haynes MD on 11/01/2016 at 13:09 Approved by: Chris Haynes M.D. on 11/01/2016 at 16:30 PROCEDURE: MR ABDOMEN MRCP INDICATIONS: Hepatic mass/hyperbilirubinemia IMPRESSION: 1. Essentially nondiagnostic MRCP given patient's extensive involuntary motion during the study. Limited visualization on the coronal T2 HASTE images demonstrate no gross biliary ductal dilatation and a grossly normal appearance the gallbladder. If further characterization of the biliary system is warranted, consider ultrasound to accommodate the patient's involuntary movements. Dictated by: Suzanne Marie M.D. on 10/31/2016 at 21:28 Approved by: Suzanne Marie M.D. on 10/31/2016 at 21:36 PROCEDURE: CT ANGIO CHEST PULMONARY EMBOLISM ([id number]) INDICATIONS: hypoxia IMPRESSION: Suboptimal study due to respiratory motion artifact. Within this constraint, no definite pulmonary embolism identified. Bilateral pleural effusions, left greater the right with adjacent atelectasis. Subpleural, subcentimeter nodular focus probably nodular scarring in the right upper lobe although technically indeterminate. Recommend followup with noncontrast chest CT in 6 months to exclude metastatic/malignant possibilities. Cardiomegaly and CT evidence of decreased cardiac output. Additional chronic and incidental findings as above. Dictated by: Rios Welsh M.D. on 10/30/2016 at 15:19 Approved by: Rios Welsh M.D. on 10/30/2016 at 15:36 PROCEDURE: X-RAY CHEST, TWO VIEWS ([id number]) INDICATIONS: cough IMPRESSION: Subpulmonic left pleural effusion, small in overall size. Bibasilar atelectasis. Heart size at the upper limits of normal (but is not enlarged).. Dictated by: Chris Haynes M.D. on 10/30/2016 at 11:57 Approved by: Chris Haynes M.D. on 10/30/2016 at 11:58 Plan Impression 1. End-stage renal disease on hemodialysis every Saturday with chronic hypervolemia. Hemodialysis Procedure Dialyzer: revaclear Blood Flow Rate: 400 Dialysate Flow Rate: 600 Duration: 4 hours HD access: AV fistula K bath: 2 HCO3 bath: 35 Ultrafiltration: 2 L 2. Abnormal liver function, elevation of TB, alkaline phosphatase and GGT. 3. Chronic pruritus. Phosphorous is controlled. 4. HFrEF. 5. Type 2 diabetes with renal manifestation. 6. Tardive dyskinesia secondary to Reglan use. Plan: Next dialysis on . Follow GI recommendation. Holly Gomez MD Nov 06, 2016 11:34
--- NOTE | 2016-11-06 13:08 | NUR ---
dialysis note 4 hr HD tx 2000ml net UF removed 2 15 g needles to R U fistula QB 400 per orders See DTR for complete vitals trends Pt slept though out tx in stable condition BG 68 at lunch time and juice given Pt turned prior to returning to floor Report given and pt returned to floor stable.
[2016-11-06 13:39] VITALS: BP 147/70; PULSE 84; RESP 20; O2SAT 100
[2016-11-06] MEDS: Lactulose 20 Gm/30 mL 30 mL Syrup PO SCH (14:07)
--- NOTE | 2016-11-06 15:30 | PCM.PNMED ---
Subjective Date of Service Nov 06, 2016 Subjective Pt denies any n/v abd pain. Alk mildly up again and GGT 880. Exam Vital Signs Vital Sign - Last Date Time Temp Pulse Resp B/P Pulse Ox O2 Delivery O2 Flow Rate FiO2 11/06/16 14:13 Supplement Oxygen 11/06/16 13:39 36.6 84 20 147/70 100 11/06/16 05:35 2.00 Intake and Output 11/05/16 11/05/16 11/06/16 Cumulative From/Thru 15:00 23:00 07:00 10/30/16 10:20 - 11/06/16 06:48 Intake Total 840 ml 560 ml 100 ml 6942 ml Output Total 0 ml 2700 ml 0 ml 6700 ml Balance 840 ml -2140 ml 100 ml 242 ml Intake Oral 840 ml 560 ml 100 ml 6922 ml IV Total 20 ml Output Urine Total 0 ml 0 ml 0 ml Ultrafiltrate 2700 ml 6700 ml # Voids 4 # Bowel Movements 1 1 4 Exam Patient is alert and oriented comfortable. Head and neck no icterus Lungs clear Cardiovascular regular rate and rhythm no murmurs. Normal S1-S2 Abdomen soft nontender nondistended with normal bowel sounds Skin shows no jaundice Extremities no pitting edema. Ankles Lab and Diagnostics Result Diagram: 11/03/16 0445 11/06/16 0605 X-Rays, CTs and MRIs PROCEDURE: NM HIDA SCAN WITH CCK PHARMACEUTICAL: 5.4 mCi Tc-99m mebrofenin IV; 1.6 mcg CCK IV. INDICATIONS: ABNORMAL BILIRUBIN, R/O CHOLECYSTITIS IMPRESSION: 1. Normal filling of gallbladder. No evidence for acute cholecystitis. 2. Normal contractile response of gallbladder to CCK infusion. Dictated by: Edmond Santa M.D. on 11/02/2016 at 16:05 Approved by: Edmond Santa M.D. on 11/02/2016 at 16:06 PROCEDURE: US ABDOMEN, LIMITED ([id number]) INDICATIONS: Evaluation of liver mass IMPRESSION: 1. No liver mass visualized sonographically. 2. Thickened and edematous gallbladder wall which could be related to developing acalculus cholecystitis. Correlate clinically. Dr. Astorga given results by the bottom stop attacher at 1050 hrs. 11/01/2016. Dictated by: Jc Hernandez [facility] Interpreted: Chris Haynes MD on 11/01/2016 at 13:09 Approved by: Chris Haynes M.D. on 11/01/2016 at 16:30 PROCEDURE: MR ABDOMEN MRCP INDICATIONS: Hepatic mass/hyperbilirubinemia IMPRESSION: 1. Essentially nondiagnostic MRCP given patient's extensive involuntary motion during the study. Limited visualization on the coronal T2 HASTE images demonstrate no gross biliary ductal dilatation and a grossly normal appearance the gallbladder. If further characterization of the biliary system is warranted, consider ultrasound to accommodate the patient's involuntary movements. Dictated by: Suzanne Marie M.D. on 10/31/2016 at 21:28 Approved by: Suzanne Marie M.D. on 10/31/2016 at 21:36 PROCEDURE: CT ANGIO CHEST PULMONARY EMBOLISM ([id number]) INDICATIONS: hypoxia IMPRESSION: Suboptimal study due to respiratory motion artifact. Within this constraint, no definite pulmonary embolism identified. Bilateral pleural effusions, left greater the right with adjacent atelectasis. Subpleural, subcentimeter nodular focus probably nodular scarring in the right upper lobe although technically indeterminate. Recommend followup with noncontrast chest CT in 6 months to exclude metastatic/malignant possibilities. Cardiomegaly and CT evidence of decreased cardiac output. Additional chronic and incidental findings as above. Dictated by: Rios Welsh M.D. on 10/30/2016 at 15:19 Approved by: Rios Welsh M.D. on 10/30/2016 at 15:36 PROCEDURE: X-RAY CHEST, TWO VIEWS ([id number]) INDICATIONS: cough IMPRESSION: Subpulmonic left pleural effusion, small in overall size. Bibasilar atelectasis. Heart size at the upper limits of normal (but is not enlarged).. Dictated by: Chris Haynes M.D. on 10/30/2016 at 11:57 Approved by: Chris Haynes M.D. on 10/30/2016 at 11:58 Assessment & Plan This is a lady who has mild elevation of bilirubin and elevation of alkaline phosphatase. GGT 880. Alkaline phosphatase mildly increased today. No new imaging done. The ultrasound does not show evidence of fatty liver, but it was a limited exam. There was no liver mass, no gallstones, gallbladder wall was thickened at 4 mm, and small amount of pericholecystic fluid. Negative for sonographic Duran sign. No liver lesion noted, but there is some question that there could be acalculous cholecystitis. The elevated bilirubin and alkaline phosphatase can indicate there could be acalculous cholecystitis. But HIDA scan is negative. Clinically she is doing well. It appears even the pruritus is little better. The reason for the elevation of the GGT and alkaline phosphatase I think is due to drug-induced cholestasis. However we still are waiting for autoimmune profile such as antimitochondrial antibody and anti-smooth muscle antibody. Therefore, recommend: 1. Continue checking the alkaline phosphatase level. I spoke with Dr. Edge at [facility] because of problems of getting imaging and I wanted his opinion. He recommends and he said he was able to see the patient within the week of the patient's discharge. He also believes getting an images quite important. But because of tardive dyskinesia very difficult to do. 2. Pruritus is better today. Combination of apsaicin cream, Lidoderm patch, gabapentin by mouth or ordered, she had good relief with capsaicin cream. 3. Liver lesion was noted to be 1-1.2 cm and indeterminant. This does not explain the elevation of alkaline phosphatase level to this extent. To better characterize the lesion, patient will need MRI or multiphasic CT scan; if CT scan of the done, please obtain multiphasic not a regular CT with IV contrast. Before discharge, please contact [facility] for an appointment date in the liver clinic. 4. Please hold off on any nonessential medications. GI Prophylaxis: Not indicated VTE Mechanical Devices: Intermittant Pneumatic CD Resuscitation Status: CPR: Attempt Resuscitation Jacob Crisostomo MD Nov 06, 2016 15:30
--- NOTE | 2016-11-06 17:57 | NUR ---
Blood sugar Blood sugar taken during dialysis at noon-68, juice given. Repeat blood sugar on return to unit at 1400-84, patient had a late lunch and more apple juice. Blood sugar at 1630 prior to dinner 144.
[2016-11-06 19:53] VITALS: BP 157/68; PULSE 93; RESP 20; O2SAT 96
[2016-11-06] MEDS: hydrOXYzine Pamoate 25 mg Capsule PO PRN (21:18)
[2016-11-06] MEDS: Insulin GLARgine 100 Unit/mL Syringe SUBQ SCH (21:19)
--- NOTE | 2016-11-06 22:47 | PCM.PNMED ---
Subjective Date of Service Nov 06, 2016 Subjective ITching has improved with capsacin cream and gabapentin. Discussed discharge plan with and patient. They showed me the letter they received from pt' s GI Dr. Brent Sunshine in [place] saying anti smooth muscle ab is positive and he is willing to perform a liver biopsy based an MRI result. Exam Vital Signs Vital Sign - Last Date Time Temp Pulse Resp B/P Pulse Ox O2 Delivery O2 Flow Rate FiO2 11/06/16 20:17 Supplement Oxygen 11/06/16 19:53 36.2 93 20 157/68 96 2.00 Intake and Output 11/05/16 11/05/16 11/06/16 Cumulative From/Thru 15:00 23:00 07:00 10/30/16 10:20 - 11/06/16 06:48 Intake Total 840 ml 560 ml 100 ml 6942 ml Output Total 0 ml 2700 ml 0 ml 6700 ml Balance 840 ml -2140 ml 100 ml 242 ml Intake Oral 840 ml 560 ml 100 ml 6922 ml IV Total 20 ml Output Urine Total 0 ml 0 ml 0 ml Ultrafiltrate 2700 ml 6700 ml # Voids 4 # Bowel Movements 1 1 4 Exam General: Incessant TD movements Psych: Limited insight and understanding of her health factors and questions, present and understanding Heart: RRR without s3/s4 murmur Lungs: CTA B/L, no crackles or wheezes Abdomen: Soft, Bowel sounds normal, not tender. Ext: No ankle edema. Skin: About 7 cm measuring linear lesion on the back of her lower right lower leg most of it scabbed over but there is some drainage coming from the top of the lesion where it is the widest. This has not changed today IVs and Medications IV Fluids None Medications Reviewed: Medications were reviewed in detail Lab and Diagnostics Result Diagram: 11/03/16 0445 11/06/16 0605 X-Rays, CTs and MRIs PROCEDURE: NM HIDA SCAN WITH CCK PHARMACEUTICAL: 5.4 mCi Tc-99m mebrofenin IV; 1.6 mcg CCK IV. INDICATIONS: ABNORMAL BILIRUBIN, R/O CHOLECYSTITIS IMPRESSION: 1. Normal filling of gallbladder. No evidence for acute cholecystitis. 2. Normal contractile response of gallbladder to CCK infusion. Dictated by: Edmond Santa M.D. on 11/02/2016 at 16:05 Approved by: Edmond Santa M.D. on 11/02/2016 at 16:06 PROCEDURE: US ABDOMEN, LIMITED ([id number]) INDICATIONS: Evaluation of liver mass IMPRESSION: 1. No liver mass visualized sonographically. 2. Thickened and edematous gallbladder wall which could be related to developing acalculus cholecystitis. Correlate clinically. Dr. Astorga given results by the restaurant mgr at 1050 hrs. 11/01/2016. Dictated by: Jc Hernandez [facility] Interpreted: Chris Haynes MD on 11/01/2016 at 13:09 Approved by: Chris Haynes M.D. on 11/01/2016 at 16:30 PROCEDURE: MR ABDOMEN MRCP INDICATIONS: Hepatic mass/hyperbilirubinemia IMPRESSION: 1. Essentially nondiagnostic MRCP given patient's extensive involuntary motion during the study. Limited visualization on the coronal T2 HASTE images demonstrate no gross biliary ductal dilatation and a grossly normal appearance the gallbladder. If further characterization of the biliary system is warranted, consider ultrasound to accommodate the patient's involuntary movements. Dictated by: Suzanne Marie M.D. on 10/31/2016 at 21:28 Approved by: Suzanne Marie M.D. on 10/31/2016 at 21:36 PROCEDURE: CT ANGIO CHEST PULMONARY EMBOLISM ([id number]) INDICATIONS: hypoxia IMPRESSION: Suboptimal study due to respiratory motion artifact. Within this constraint, no definite pulmonary embolism identified. Bilateral pleural effusions, left greater the right with adjacent atelectasis. Subpleural, subcentimeter nodular focus probably nodular scarring in the right upper lobe although technically indeterminate. Recommend followup with noncontrast chest CT in 6 months to exclude metastatic/malignant possibilities. Cardiomegaly and CT evidence of decreased cardiac output. Additional chronic and incidental findings as above. Dictated by: Rios Welsh M.D. on 10/30/2016 at 15:19 Approved by: Rios Welsh M.D. on 10/30/2016 at 15:36 PROCEDURE: X-RAY CHEST, TWO VIEWS ([id number]) INDICATIONS: cough IMPRESSION: Subpulmonic left pleural effusion, small in overall size. Bibasilar atelectasis. Heart size at the upper limits of normal (but is not enlarged).. Dictated by: Chris Haynes M.D. on 10/30/2016 at 11:57 Approved by: Chris Haynes M.D. on 10/30/2016 at 11:58 Assessment & Plan #Severe refractory Pruritus: - Trial Lactulose to aid in Ammonia excretion has been continued given improving condition is not clear what role this is playing - Uremia may also be playing a role, so patient's improvement could also be explained by more aggressive dialysis treatment undertaken by our nephrology consult Dr. Jamison -- Capsaicin cream, Lidoderm patch, gabapentin by mouth or ordered, she had good relief with capsaicin cream. # Leg Ulcer, chronic active -- This appears to be loculated. Attempted to drain but no shruthi pus could be expressed. Romero are thick and loculated, she will likely need an o/p procedure. -- Consider clindamycin. # Cardiomyopathy, chronic active - Troponin elevation remained stable, as did CK readings. - A Complete echocardiogram, last conducted in 2014 demonstrating ejection fraction of 50%, now diminished to 30% on the current study with evidence of hypokinesis. - Additional nuclear medicine stress test is done and demonstrates similar wall motion abnormality but no evidence of reversible ischemia. - Cardiology has been consulted and we continue to appreciate their recommendations - Dr. Loera feels this dilated cardiomyopathy is not the result of coronary artery disease, and may be optimally managed medically. More aggressive diuresis as well will play a role. - Supplemental oxygen to be provided as needed, continue to monitor on telemetry. #. Hyperbilirubinemia/pruritus/transaminitis/Liver mass, POA Improving - Underlying etiology of this condition remains unclear - Continue to trend liver functions in addition to bilirubin levels: Improving 1.4 - MRCP inconclusive due to involuntary motion, US abd unhelpful, CT Abd records requested from [facility] - AFP tumor marker is also pending to consider possible cancerous process. - GI consulted we continue to appreciate recommendations, proceed with GGT level ,880. Hold all medicines that are reasonable to hold at this point. -- Anti smoothmuscle ab positive per patient's GI doc Dr. Sunshine - HIDA scan is not abnormal - Underlying hyper-bilirubinemia such as show Gilbert's disease may also be a contributing factor. - GI does not believe given the degree of elevation that bilirubin could be a cause of patient's refractory itching. --Discussed with Dr Crisostomo : "Therefore, recommend: 1. Continue checking the alkaline phosphatase level. I spoke with Dr. Edge at [facility] because of problems of getting imaging and I wanted his opinion. He recommends and he said he was able to see the patient within the week of the patient's discharge. He also believes getting an images quite important. But because of tardive dyskinesia very difficult to do. 2. Pruritus is better today. Combination of apsaicin cream, Lidoderm patch, gabapentin by mouth or ordered, she had good relief with capsaicin cream. 3. Liver lesion was noted to be 1-1.2 cm and indeterminant. This does not explain the elevation of alkaline phosphatase level to this extent. To better characterize the lesion, patient will need MRI or multiphasic CT scan; if CT scan of the done, please obtain multiphasic not a regular CT with IV contrast. Before discharge, please contact Jenny Avendano for an appointment date in the liver clinic. 4. Please hold off on any nonessential medications. " -- Patient's GI specialist is already following up on all her issues, will contact Dr. Sunshine in the AM to give pt a more definitive plan #End stage renal disease, Dialysis dependent, chronic Active - Patient is dialysis dependent - Noted above it may be that previous therapies have been under diuresing and leaving patient with excessive volume - Uremia as well has not been adequately addressed prior, which may be contributing factor to purchase described above - Continue to appreciate nephrology's consultation, and continued assistance with dialysis patient regular schedules Saturday and Saturday. -- Nephrology has cleared pt for d/c #Diabetes mellitus type II chronic Active - Continue patient on sliding scale insulin, and adjust Lantus to 15 units a day , due to hypoglycemia overnight. - We will hold home oral medications at this time is contrasted studies may be needed during hospitalization. #Tardive Dyskinesia secondary to previous Reglan use, chronic Active - Continue home medications - Hold the ropinirole for several days to evaluate the effect on bilirubin and GGT. # Depression, chronic Active - Restart antidepressant # Hypothyroidism, chronic Active - Resume levothyroxine #Anxiety chronic active -- Cont clonazepam Pain Evaluation: Adequate Pain Control GI Prophylaxis: Not indicated VTE Mechanical Devices: Intermittant Pneumatic CD Resuscitation Status: CPR: Attempt Resuscitation Time spent 25 min Pain Evaluation: Adequate Pain Control GI Prophylaxis: Not indicated VTE Mechanical Devices: Intermittant Pneumatic CD Resuscitation Status: CPR: Attempt Resuscitation Time spent 25 min Antonette Washington DO Nov 06, 2016 22:47
[2016-11-07 05:02] VITALS: BP 142/78; PULSE 89; RESP 20; O2SAT 96
--- NOTE | 2016-11-07 06:34 | NUR ---
Itching, Pain; Pt had one episode of itching last evening and reported right groin pain ongoing from day shift; medicated with Vistaril and Oxycodone. Pt declined the Capsaicin cream when offered. Also using an ice bag for groin pain. Pt was able to sleep much of the night, with no further reports of pain/itching.
[2016-11-07 07:35] LABS: Mean Corpuscular Hemoglobin 26.8 pg (27.0-35.0); Mean Corpuscular Volume 83.7 fL (81-100)
[2016-11-07] MEDS: Insulin LISPRO 300 Unit/3 mL Inj SUBQ SCH ×2 (08:00→12:05)
[2016-11-07] MEDS: Lactulose 20 Gm/30 mL 30 mL Syrup PO SCH (08:27)
[2016-11-07] MEDS: Cholestyramine Resin Powder 4 Gm Packet PO SCH (09:29)
--- NOTE | 2016-11-07 10:05 | NUR ---
Social Work-readiness for discharge: Data:EMR Reviewed. Pt is on day 8 of hospitalization for hypoxia per H&P. Pt is likely medically stable later today or tomorrow. Pt resides at home with her where she remains independent with ADLS. pt goes to dialysis T//Sat. Pt confirms no discharge needs. Pt's to provide transport home at discharge. No anticipated discharge needs. SW will continue to follow if needs arise. Assessment:pt who is independent at baseline. Plan:Pt to discharge home when medically stable via POV. No anticipated discharge needs. SW will continue to follow if needs arise. RICK Dubon
--- NOTE | 2016-11-07 11:31 | PCM.PNNEPH ---
Subjective Date of Service Nov 07, 2016 Subjective Patient received hemodialysis 2 consecutive days. She reports that itchiness skin has somewhat improved. Patient was told that she may be discharged home today and follow-up with liver clinic at [facility]. Exam Vital Signs Vital Sign - Last Date Time Temp Pulse Resp B/P Pulse Ox O2 Delivery O2 Flow Rate FiO2 11/07/16 08:21 Supplement Oxygen 11/07/16 05:02 36.0 89 20 142/78 96 2.00 Intake and Output 11/06/16 11/06/16 11/07/16 Cumulative From/Thru 14:59 22:59 06:59 10/30/16 10:20 - 11/07/16 06:05 Intake Total 620 ml 200 ml 7762 ml Output Total 2000 ml 0 ml 8700 ml Balance -2000 ml 620 ml 200 ml -938 ml Intake Oral 620 ml 200 ml 7742 ml IV Total 20 ml Output Urine Total 0 ml 0 ml Ultrafiltrate 2000 ml 8700 ml # Voids 1 5 # Bowel Movements 4 Exam ENERAL: The patient in no apparent distress, and alert and oriented x3. On oxygen mask HEENT: Head is normocephalic and atraumatic. Extraocular muscles are intact. Pupils are equal, round. NECK: Supple, (+) elevation of JVD, No carotid bruits. No lymphadenopathy or thyromegaly. LUNGS: Good air entry bilaterally no wheezing no rhonchi. HEART: Normal S1/S2, Regular rate and rhythm, no murmurs, rubs or gallops. ABDOMEN: Soft, nontender, and nondistended. Positive bowel sounds. No hepatosplenomegaly was noted. EXTREMITIES: Without any cyanosis, clubbing, rash, lesions or edema. NEUROLOGIC: The patient is oriented to person, place and time. Strength and sensation are grossly intact. Lab and Diagnostics Result Diagram: 11/07/16 0720 11/07/16 0720 X-Rays, CTs and MRIs PROCEDURE: NM HIDA SCAN WITH CCK PHARMACEUTICAL: 5.4 mCi Tc-99m mebrofenin IV; 1.6 mcg CCK IV. INDICATIONS: ABNORMAL BILIRUBIN, R/O CHOLECYSTITIS IMPRESSION: 1. Normal filling of gallbladder. No evidence for acute cholecystitis. 2. Normal contractile response of gallbladder to CCK infusion. Dictated by: Edmond Santa M.D. on 11/02/2016 at 16:05 Approved by: Edmond Santa M.D. on 11/02/2016 at 16:06 PROCEDURE: US ABDOMEN, LIMITED ([id number]) INDICATIONS: Evaluation of liver mass IMPRESSION: 1. No liver mass visualized sonographically. 2. Thickened and edematous gallbladder wall which could be related to developing acalculus cholecystitis. Correlate clinically. Dr. Astorga given results by the sawsmith at 1050 hrs. 11/01/2016. Dictated by: Jc Hernandez [facility] Interpreted: Chris Haynes MD on 11/01/2016 at 13:09 Approved by: Chris Haynes M.D. on 11/01/2016 at 16:30 PROCEDURE: MR ABDOMEN MRCP INDICATIONS: Hepatic mass/hyperbilirubinemia IMPRESSION: 1. Essentially nondiagnostic MRCP given patient's extensive involuntary motion during the study. Limited visualization on the coronal T2 HASTE images demonstrate no gross biliary ductal dilatation and a grossly normal appearance the gallbladder. If further characterization of the biliary system is warranted, consider ultrasound to accommodate the patient's involuntary movements. Dictated by: Suzanne Marie M.D. on 10/31/2016 at 21:28 Approved by: Suzanne Marie M.D. on 10/31/2016 at 21:36 PROCEDURE: CT ANGIO CHEST PULMONARY EMBOLISM ([id number]) INDICATIONS: hypoxia IMPRESSION: Suboptimal study due to respiratory motion artifact. Within this constraint, no definite pulmonary embolism identified. Bilateral pleural effusions, left greater the right with adjacent atelectasis. Subpleural, subcentimeter nodular focus probably nodular scarring in the right upper lobe although technically indeterminate. Recommend followup with noncontrast chest CT in 6 months to exclude metastatic/malignant possibilities. Cardiomegaly and CT evidence of decreased cardiac output. Additional chronic and incidental findings as above. Dictated by: Rios Welsh M.D. on 10/30/2016 at 15:19 Approved by: Rios Welsh M.D. on 10/30/2016 at 15:36 PROCEDURE: X-RAY CHEST, TWO VIEWS ([id number]) INDICATIONS: cough IMPRESSION: Subpulmonic left pleural effusion, small in overall size. Bibasilar atelectasis. Heart size at the upper limits of normal (but is not enlarged).. Dictated by: Chris Haynes M.D. on 10/30/2016 at 11:57 Approved by: Chris Haynes M.D. on 10/30/2016 at 11:58 Plan Impression 1. End-stage renal disease on hemodialysis every Saturday with chronic hypervolemia. 2. Abnormal liver function, elevation of TB, alkaline phosphatase and GGT. 3. Chronic pruritus. Phosphorous is controlled. 4. HFrEF. 5. Type 2 diabetes with renal manifestation. 6. Tardive dyskinesia secondary to Reglan use. Plan: Next dialysis on . Follow GI recommendation. Per renal standpoint, the patient can be discharged. She will follow-up with her primary inspector circuitry negative. Holly Gomez MD Nov 07, 2016 11:30
--- NOTE | 2016-11-07 11:36 | NUR ---
Social Work-discharge: Data:EMR Reviewed. Pt is on day 8 of hospitalization for elevated troponin per H&P. Pt is medically stable for discharge home today. Pt has been up independent in his room. Pt and confirmed home no needs. No discharge needs identified. All updated and agreeable to plan. Assessment:Pt who is independent at baseline. Plan:Pt to discharge home today via POV. No discharge needs identified. All updated and agreeable to plan. RICK Dubon Addendum: 11/07/16 at 1314 by ESMER GURROLA SS KRISTI received order for MD regarding HH- RN. KRISTI met with pt and and they are agreeable to HH services, no agency preference. KRISTI referred to rotating calendar and made referral to [facility] for RNL[facility]ert[facility] PATRICK to complete F2F. KRISTI faxed in orders and F2f to [facility]. would also like list of DME providers in the area, which KRISTI has provided. All updated and agreeable to plan. RICK Dubon
--- NOTE | 2016-11-07 11:41 | PCM.DIMED ---
Discharge Instructions Date of Service Nov 07, 2016 Dates of Hospitalization Oct 30, 2016 at 17:20 Discharge Diagnosis Discharge Diagnosis elevated troponins pleural effusions Transaminitis, Questionable liver mass, tardrive dyskinesia, ESRD on dialysis, chronic resp failure Diet Discharge Diet: Low fat, Low Sodium, Heart Healthy, Diabetic Activity Discharge Activity: Other (use wheel chair and walker) Call your provider Call your provider for: Fever or Chills, Shortness of breath, Bleeding, Chest pain, Vomitting, Excessive diarrhea, Weakness (unilateral), Other Patient Instructions Patient Instructions Pl. f/u with Dr. Edge at [facility] in 5 days Use capsaicin cream and gabapentin for itching Please hold off on any nonessential medications. Pl note change to bupropion schedule Dialysis sat pl use oxygen 2-3 L as before Follow-up plan 1. Dr. Edge at [facility] recommends and he said he was able to see the patient within the week of the patient's discharge. He also believes getting an images quite important. But because of tardive dyskinesia very difficult to do. 2. Liver lesion was noted to be 1-1.2 cm and indeterminant. This does not explain the elevation of alkaline phosphatase level to this extent. To better characterize the lesion, patient will need MRI or multiphasic CT scan; if CT scan of the done, please obtain multiphasic not a regular CT with IV contrast. Before Dialysis sat F/U with PCP oin one week for DM II F.U with cardiology in 3-4 weeks F/U with Dr. Edge on 5 days F/U CMP in 3 days to be sent to Antonette Harvey DO Nov 07, 2016 11:41
[2016-11-07] MEDS ORDERED: LACT10SO60 PO (11:53)
[2016-11-07] MEDS ORDERED: OXYC-474 PO (11:56)
[2016-11-07] MEDS ORDERED: CLIN-78 PO (12:10)
[2016-11-07] MEDS ORDERED: CLIN-77 PO (12:10)
--- NOTE | 2016-11-07 12:15 | PCM.DC.MED ---
Discharge Summary Date of Service Nov 07, 2016 Dates of Hospitalization Date of Hospital Admission Oct 30, 2016 at 17:20 Date of Discharge: Nov 07, 2016 Providers: Admitting Physician: Antonette Stiles DO Primary Care Physician: Neal Burks MD Attending Physician: Antonette Stiles DO Diagnosis at Time of Discharge Diagnosis at Time of Discharge elevated troponins pleural effusions Transaminitis, Questionable liver mass, tardrive dyskinesia, ESRD on dialysis, chronic resp failure Consultations Nephrology, Cardiology, GI Procedures XRay, CTs & MRIs PROCEDURE: NM HIDA SCAN WITH CCK PHARMACEUTICAL: 5.4 mCi Tc-99m mebrofenin IV; 1.6 mcg CCK IV. INDICATIONS: ABNORMAL BILIRUBIN, R/O CHOLECYSTITIS IMPRESSION: 1. Normal filling of gallbladder. No evidence for acute cholecystitis. 2. Normal contractile response of gallbladder to CCK infusion. Dictated by: Edmond Santa M.D. on 11/02/2016 at 16:05 Approved by: Edmond Santa M.D. on 11/02/2016 at 16:06 PROCEDURE: US ABDOMEN, LIMITED ([id number]) INDICATIONS: Evaluation of liver mass IMPRESSION: 1. No liver mass visualized sonographically. 2. Thickened and edematous gallbladder wall which could be related to developing acalculus cholecystitis. Correlate clinically. Dr. Astorga given results by the picture frame maker at 1050 hrs. 11/01/2016. Dictated by: Jc Hernandez [facility] Interpreted: Chris Haynes MD on 11/01/2016 at 13:09 Approved by: Chris Haynes M.D. on 11/01/2016 at 16:30 PROCEDURE: MR ABDOMEN MRCP INDICATIONS: Hepatic mass/hyperbilirubinemia IMPRESSION: 1. Essentially nondiagnostic MRCP given patient's extensive involuntary motion during the study. Limited visualization on the coronal T2 HASTE images demonstrate no gross biliary ductal dilatation and a grossly normal appearance the gallbladder. If further characterization of the biliary system is warranted, consider ultrasound to accommodate the patient's involuntary movements. Dictated by: Suzanne Marie M.D. on 10/31/2016 at 21:28 Approved by: Suzanne Marie M.D. on 10/31/2016 at 21:36 PROCEDURE: CT ANGIO CHEST PULMONARY EMBOLISM ([id number]) INDICATIONS: hypoxia IMPRESSION: Suboptimal study due to respiratory motion artifact. Within this constraint, no definite pulmonary embolism identified. Bilateral pleural effusions, left greater the right with adjacent atelectasis. Subpleural, subcentimeter nodular focus probably nodular scarring in the right upper lobe although technically indeterminate. Recommend followup with noncontrast chest CT in 6 months to exclude metastatic/malignant possibilities. Cardiomegaly and CT evidence of decreased cardiac output. Additional chronic and incidental findings as above. Dictated by: Rios Welsh M.D. on 10/30/2016 at 15:19 Approved by: Rios Welsh M.D. on 10/30/2016 at 15:36 PROCEDURE: X-RAY CHEST, TWO VIEWS ([id number]) INDICATIONS: cough IMPRESSION: Subpulmonic left pleural effusion, small in overall size. Bibasilar atelectasis. Heart size at the upper limits of normal (but is not enlarged).. Dictated by: Chris Haynes M.D. on 10/30/2016 at 11:57 Approved by: Chris Haynes M.D. on 10/30/2016 at 11:58 Cardiac Echo Impression nterpretation Summary The ejection fraction is estimated to be 30-35%. Flattened septum is consistent with RV pressure overload. Dyskinetic septum, anteroseptal wall is severely hypokinetic, inferior hypokinesis. Right ventricular systolic function is borderline reduced. There is moderate mitral regurgitation. There is moderate to severe tricuspid regurgitation. The right ventricular systolic pressure is estimated at 46 mmHg assuming a right atrial pressure of 8 mm Hg. Electronically signed by: Rajinder Solo on Reading Physician:10/31/2016 12:21 PM Brief History Patient is a 61-year-old female past medical history significant for hypothyroidism, hypertension, asthma, end-stage renal disease on hemodialysis, diabetes mellitus type II, and less clear diagnosis of some type of pulmonary disease which has currently led to her requiring supplemental oxygen in addition to an progressive elevation of her bilirubin which is yet been undiagnosed. Patient presented emergency department this morning complaining of diffuse itching and dyspnea condition a chronic cough which finally led to her seeking medical assistance .She has been on dialysis for about 4 years now and is managed in [place] by Dr. Luther. Emergency department she was provided numerous when necessary medications including Benadryl intravenous steroids and swallowed anesthetics which aided in symptoms of itching and cough however she was additionally found to be hypoxic, with an elevation of her troponins which prompted further consultation with cardiology. In the setting of renal disease she did not appear patient was having an acute coronary syndrome, however it was learned that she was past due for a cardiac stress test and on the recommendation of Dr. Martinez patient was admitted for further monitoring for known cardio vascular disease and further evaluation including cardiac stress test and echocardiogram to determine if cardiac cause is playing a role in patient's current symptoms. Her itching certainly may be related to bilirubin elevation, which is again is lacking a firm diagnosis. Patient notes she has been sleeping less specifically due to this itching, causing her significant amount of distress. provides more extensive history detailing recent events. Pt had been hoping for a renal transplant but her eligibility up to last year when her medical condition began to decline. Hypoxia a few months prior led to evaluation of lungs demonstrating pulmonary effusions. Cause remains unclear but she has had home oxygen prescribed as she has become persistent hypoxic. She also has had imaging studies of abdomen, unsure what type, which showed a liver mass. Her english language arts teacher has been working this up, and planned a F/ U MRCP currently scheduled for Saturday. During my evaluation patient is slightly short of best she denies overt chest pain and recalls no recent events of chest pain. She denies any fever chills or sweats. Denies overt abdominal pain, states she has been having normal bowel and bladder function. Hospital Course #Severe refractory Pruritus: - Trial Lactulose to aid in Ammonia excretion has been continued given improving condition is not clear what role this is playing - Uremia may also be playing a role, so patient's improvement could also be explained by more aggressive dialysis treatment undertaken by our nephrology consult Dr. Jamison --Capsaicin cream, Lidoderm patch, gabapentin by mouth or ordered, she had good relief with capsaicin cream and gabapentin. # Leg Ulcer, chronic active -- This appears to be loculated. Attempted to drain but no shruthi pus could be expressed. Romero are thick and loculated, she will likely not need an o/p procedure. -- Clindamycin course for 7 days for leg abscess, use probiotics to avoid diarrhea. F/U with PCP. # Cardiomyopathy, chronic active - Troponin elevation remained stable, as did CK readings. - A Complete echocardiogram, last conducted in 2014 demonstrating ejection fraction of 50%, now diminished to 30% on the current study with evidence of hypokinesis. - Additional nuclear medicine stress test is done and demonstrates similar wall motion abnormality but no evidence of reversible ischemia. - Cardiology has been consulted and we continue to appreciate their recommendations - Dr. Loera feels this dilated cardiomyopathy is not the result of coronary artery disease, and may be optimally managed medically. More aggressive diuresis as well will play a role. - Supplemental oxygen to be provided as needed, continue to monitor on telemetry. -- Pt is asked to discuss extra diuresis during dialysis with her english language arts teacher #. Hyperbilirubinemia/pruritus/transaminitis/Liver mass, POA Improving - Underlying etiology of this condition remains unclear - Continue to trend liver functions in addition to bilirubin levels: Improving 1.4 - MRCP inconclusive due to involuntary motion, US abd unhelpful, CT Abd records requested from [facility] - AFP tumor marker is also pending to consider possible cancerous process. - GI consulted we continue to appreciate recommendations, proceed with GGT level ,880. Hold all medicines that are reasonable to hold at this point. -- Anti smoothmuscle ab positive per patient's GI doc Dr. Sunshine - HIDA scan is not abnormal - Underlying hyper-bilirubinemia such as show Gilbert's disease may also be a contributing factor. - GI does not believe given the degree of elevation that bilirubin could be a cause of patient's refractory itching. --Discussed with Dr Crisostomo : "Therefore, recommend: 1. Continue checking the alkaline phosphatase level. I spoke with Dr. Edge at [facility] because of problems of getting imaging and I wanted his opinion. He recommends and he said he was able to see the patient within the week of the patient's discharge. He also believes getting an images quite important. But because of tardive dyskinesia very difficult to do. 2. Pruritus is better today. Combination of apsaicin cream, Lidoderm patch, gabapentin by mouth or ordered, she had good relief with capsaicin cream. 3. Liver lesion was noted to be 1-1.2 cm and indeterminant. This does not explain the elevation of alkaline phosphatase level to this extent. To better characterize the lesion, patient will need MRI or multiphasic CT scan; if CT scan of the done, please obtain multiphasic not a regular CT with IV contrast. Before discharge, please contact [facility] for an appointment date in the liver clinic. 4. Please hold off on any nonessential medications. " -- Patient's GI specialist Dr. Sunshine is contacted and he also recommends sending pt to [facility] to see Dr Edge. #End stage renal disease, Dialysis dependent, chronic Active - Patient is dialysis dependent - Noted above it may be that previous therapies have been under diuresing and leaving patient with excessive volume - Uremia as well has not been adequately addressed prior, which may be contributing factor to purchase described above - Continue to appreciate nephrology's consultation, and continued assistance with dialysis patient regular schedules Saturday and Saturday. -- Nephrology has cleared pt for d/c -- Cont Sat dialysis on d/c #Diabetes mellitus type II chronic Active - Lantus dose was changed to 15 U QHS based on our observations at [facility] #Tardive Dyskinesia secondary to previous Reglan use, chronic Active - Continue home medications # Depression, chronic Active - Restart antidepressant wellbutrin at Q48H dose # Hypothyroidism, chronic Active - levothyroxine #Anxiety chronic active -- Cont clonazepam Pain Evaluation: Adequate Pain Control GI Prophylaxis: Not indicated VTE Mechanical Devices: Intermittant Pneumatic CD Resuscitation Status: CPR: Attempt Resuscitation Time spent 25 min Exam Vital Signs (Last) Date Time Temp Pulse Resp B/P Pulse Ox O2 Delivery O2 Flow Rate FiO2 11/07/16 08:21 Supplement Oxygen 11/07/16 05:02 36.0 89 20 142/78 96 2.00 Exam General: Incessant TD movements Psych: Limited insight and understanding of her health factors and questions, present and understanding Heart: RRR without s3/s4 murmur Lungs: CTA B/L, no crackles or wheezes Abdomen: Soft, Bowel sounds normal, not tender. Ext: No ankle edema. Skin: About 7 cm measuring linear lesion on the back of her lower right lower leg most of it scabbed over but there is some drainage coming from the top of the lesion where it is the widest Test 10/30/16 10:42 10/30/16 13:18 10/31/16 01:18 10/31/16 06:00 Hemoglobin A1c 6.8% (4.8-5.6) Magnesium Level 1.9mg/dL (1.6-2.6) Total Creatine Kinase 169U/L (21-215) Creatine Kinase MB 6.8ng/mL (0.0-5.3) Creatine Kinase MB % 4.0% (0.0-5.0) Thyroid Stimulating Hormone (TSH) 2.580uIU/mL (0.450-4.500) Troponin T 0.127ug/L (0.0-0.011) Triglycerides Level 104mg/dL (0-149) Cholesterol Level 134mg/dL (100-199) LDL Cholesterol, Calculated 72.200mg/dL (0-99) VLDL Cholesterol 20.800mg/dL HDL Cholesterol 41mg/dL (>39) Cholesterol/HDL Ratio 3.27 (0.0-4.4) Test 10/31/16 18:05 11/01/16 08:40 11/03/16 04:45 11/03/16 15:45 Ammonia 84ug/dL (18-53) Tumor Marker Alpha Fetoprotein 1.3ng/mL (0.0-8.3) Neutrophils (%) (Auto) 61.3% (40-74) Lymphocytes (%) (Auto) 22.7% (14-46) Monocytes (%) (Auto) 13.1% (4-12) Eosinophils (%) (Auto) 2.4% (0-5) Basophils (%) (Auto) 0.3% (0-3) Total Alkaline Phosphatase 493IU/L (39-117) Alkaline Phosphatase Iso-Intestine 4% (0-18) Alkaline Phosphatase Iso-Bone 34% (14-68) Alkaline Phosphatase Iso-Liver 62% (18-85) Test 11/04/16 06:19 11/05/16 10:14 11/07/16 07:20 Direct Bilirubin 0.9mg/dL (0.0-0.3) Gamma Glutamyl Transpeptidase 880IU/L (0-60) Mitochondrial/Smooth Musc Ab Titer 11.1Units (0.0-20.0) Phosphorus Level 4.3mg/dL (2.5-4.9) White Blood Count 6.9th/mm3 (3.8-10.1) Red Blood Count 5.15mil/mm3 (3.90-5.20) Hemoglobin 13.8g/dL (12.0-15.6) Hematocrit 43.1% (35.0-46.0) Mean Corpuscular Volume 83.7fL (81-100) Mean Corpuscular Hemoglobin 26.8pg (27.0-35.0) Mean Corpuscular Hemoglobin Concent 32.0% (32.0-37.0) Red Cell Distribution Width 17.6% (12.3-15.4) Platelet Count 152bil/L (150-400) Sodium Level 134mEq/L (134-144) Potassium Level 4.2mEq/L (3.5-5.2) Chloride Level 93mEq/L (97-108) Carbon Dioxide Level 27mmol/L (18-29) Blood Urea Nitrogen 21mg/dL (8-27) Creatinine 3.51mg/dL (0.57-1.00) Estimat Glomerular Filtration Rate 19mL/min (>59) Glucose Level 138mg/dL (60-99) Calcium Level 9.0mg/dL (8.5-10.1) Total Bilirubin 1.5mg/dL (0.0-1.2) Aspartate Amino Transf (AST/SGOT) 32U/L (0-50) Alanine Aminotransferase (ALT/SGPT) 20U/L (0-32) Alkaline Phosphatase 598U/L (25-165) Total Protein 6.8g/dL (6.4-8.4) Albumin 3.2g/dL (3.4-5.0) Discharge Medications Discharge Medications Aspirin (Aspirin) 81 Mg Tablet 81 MG PO DAILY (Reported) Bupropion ER (Wellbutrin XL) 150 Mg Tab.er.24h 150 MG PO Q48H Prescribed by: ANTONETTE STILES DO Carvedilol (Carvedilol) 6.25 Mg Tablet 6.25 MG PO DAILY (Reported) Clindamycin (Clindamycin) 150 Mg Capsule 150 MG PO QID Prescribed by: ANTONETTE STILES DO Clindamycin (Clindamycin) 300 Mg Capsule 300 MG PO QID Prescribed by: ANTONETTE STILES DO Gabapentin (Neurontin) 100 Mg Capsule 100 MG PO TID Prescribed by: ANTONETTE STILES DO Insulin Glargine (Lantus U100 Insulin Vial) 100 Unit/Ml Vial 15 UNIT SUBQ HS Prescribed by: ANTONETTE STILES DO Levothyroxine (Levothyroxine) 50 Mcg Tablet 50 MCG PO HS (Reported) Montelukast (Montelukast) 10 Mg Tablet 10 MG PO HS (Reported) Nortriptyline (Nortriptyline) 25 Mg Capsule 25 MG PO HS (Reported) Omeprazole (Omeprazole) 20 Mg Capsule.dr 20 MG PO DAILYWD (Reported) Paroxetine (Paroxetine) 40 Mg Tablet 40 MG PO HS (Reported) Pravastatin (Pravastatin) 80 Mg Tablet 80 MG PO DAILYWD (Reported) Ropinirole (Ropinirole) 0.25 Mg Tablet 0.25 MG PO DAILY (Reported) As needed ([Capsaicin]) 1 APPLIC/0.25 GM CREAM 1 APPLIC TOPICAL PRN PRN PRN For Pain Prescribed by: ANTONETTE STILES DO Clonazepam (Clonazepam) 0.5 Mg Tablet 0.125 MG PO BID PRN PRN For Anxiety ( Reported) Lactulose (Lactulose) 20 Gm/30 Ml Solution 20 GM PO DAILY PRN PRN For Constipation Prescribed by: ANTONETTE STILES DO Ondansetron ODT (Ondansetron ODT) 4 Mg Tab.rapdis 4 MG PO Q6H PRN PRN For Nausea (Reported) Oxycodone (Roxicodone) 5 Mg Tablet 5 MG PO Q12H PRN PRN For Pain Prescribed by: ANTONETTE STILES DO Prochlorperazine Maleate (Prochlorperazine) 5 Mg Tablet 5 MG PO Q8 PRN PRN For Nausea/Vomiting (Reported) hydrOXYzine Hcl (HydrOXYzine Hcl) 25 Mg Tablet 12.5-25 MG PO Q4-6H PRN PRN For Itching (Reported) Miscellaneous Medications Insulin Aspart (NovoLOG U100 Insulin Vial) 100 U/Ml U 1 UNIT SUBQ (Reported) Followup Plan Follow-up plan 1. Dr. Edge at [facility] recommends and he said he was able to see the patient within the week of the patient's discharge. He also believes getting an images quite important. But because of tardive dyskinesia very difficult to do. 2. Liver lesion was noted to be 1-1.2 cm and indeterminant. This does not explain the elevation of alkaline phosphatase level to this extent. To better characterize the lesion, patient will need MRI or multiphasic CT scan; if CT scan of the done, please obtain multiphasic not a regular CT with IV contrast. Before Dialysis sat F/U with PCP oin one week for DM II F.U with cardiology in 3-4 weeks F/U with Dr. Edge on 5 days F/U CMP in 3 days to be sent to Dr. Edge Discharge Diet: Low fat, Low Sodium, Heart Healthy, Diabetic Discharge Activity: Other (use wheel chair and walker) Patient Instructions Pl. f/u with Dr. Edge at [facility] in 5 days Use capsaicin cream and gabapentin for itching Please hold off on any nonessential medications. Pl note change to bupropion schedule Dialysis sat pl use oxygen 2-3 L as before Time spent 1 hr Antonette Stiles DO Nov 07, 2016 12:15
[2016-11-07] MEDS: Alum-Mag Hydrox-Simeth 30 mL Suspension PO PRN (13:23)
--- NOTE | 2016-11-07 15:03 | NUR ---
DISCHARGE Pt discharged home this afternoon at 1430, off unit in w/c accompanied by VENETIAN BLIND MACHINE OPERATOR and pt's . Pt A&Ox4, denies any pain and in no apparent distress. IV dc'd intact and all belongings returned. All instructions for diet, activity, medications, prescriptions and follow up reviewed with pt who reports understanding.
[2016-11-07] MEDS ORDERED: buPROPion XL 150 mg ER24 Tablet PO SCH (21:00)
--- NOTE | 2016-11-09 13:48 | NUR ---
Social Work: Late note 11/09/2016: GOSPEL SINGER received a voice mail from [facility], requesting additional phone numbers for pt as they have not been able to get in contact with pt with the phone number they have. GOSPEL SINGER called back and gave them additional phone numbers to try. RICK Castro
== END 2016-11-07 14:29 | disposition home health service (06) | DRG 91 ==
LOC: SED 10:10 → MPC 17:20
PROVIDERS: ADMIT Family Medicine; ATTEND Family Medicine
PROC: 4A033R1 Measurement of Arterial Saturation, Peripheral, Percutaneous Approach (ICD-10-PCS; principal; 2016-10-30)
PROC: 5A1D60Z (ICD-10-PCS; 2016-11-01)
DX: G24.01 Drug induced subacute dyskinesia (principal); N18.6 End stage renal disease; I13.11 Hypertensive heart and chronic kidney disease without heart failure, with stage 5 chronic kidney disease, or end stage renal disease; J96.11 Chronic respiratory failure with hypoxia; I42.0 Dilated cardiomyopathy; L29.9 Pruritus, unspecified; E11.22 Type 2 diabetes mellitus with diabetic chronic kidney disease; Z99.2 Dependence on renal dialysis; T45.0X5 Adverse effect of antiallergic and antiemetic drugs; E03.9 Hypothyroidism, unspecified; J45.909 Unspecified asthma, uncomplicated; Z87.891 Personal history of nicotine dependence; E11.42 Type 2 diabetes mellitus with diabetic polyneuropathy; E11.319 Type 2 diabetes mellitus with unspecified diabetic retinopathy without macular edema; E11.43 Type 2 diabetes mellitus with diabetic autonomic (poly)neuropathy; K31.84 Gastroparesis; F41.8 Other specified anxiety disorders; Z79.4 Long term (current) use of insulin

== ENCOUNTER 2016-11-10 19:09 | Emergency (ER) | payer MEDICARE, OTHER ==
[~2016-11-10] VITALS: Ht 160 cm; Wt 72.7 kg
[~2016-11-10 19:09] MED LIST changes: +BUPR-97 PO; -BUPR150T12 PO; -CARV25TA2 PO; +CARV6.252 PO; +CLIN-77 PO; +CLIN-78 PO; +Capsaicin TOPICAL; -GABA-500 PO; +GABA100C PO; +HYDR-656 PO; +KLO5T PO; +LACT10SO60 PO; -MECL-114 PO; +ONDA4TAB12 PO; +OXYC-474 PO; +PRAV80TA2 PO; -ROSU40TA PO; -SEVE800T10 PO
[2016-11-10 19:12] VITALS: BP 140/67; PULSE 95; RESP 20; O2SAT 99
--- NOTE | 2016-11-10 20:12 | ED.REPORT ---
HPI-General Illness Date of Service Nov 10, 2016 ED Provider: Doc,Ed MD Nursing Notes Stated Complaint: INSULIN NEEDLE BROKE OFF IN STOMACH Chief Complaint: General Complaint Allergies: Coded Allergies: codeine (Verified Allergy, Mild, 06/14/16) hydrocodone (Verified Allergy, Unknown, 06/14/16) Scheduled Aspirin (Aspirin) 81 Mg Tablet 81 MG PO DAILY Bupropion ER (Wellbutrin XL) 150 Mg Tab.er.24h 150 MG PO Q48H Carvedilol (Carvedilol) 6.25 Mg Tablet 6.25 MG PO DAILY Clindamycin (Clindamycin) 150 Mg Capsule 150 MG PO QID Clindamycin (Clindamycin) 300 Mg Capsule 300 MG PO QID Gabapentin (Neurontin) 100 Mg Capsule 100 MG PO TID Insulin Glargine (Lantus U100 Insulin Vial) 100 Unit/Ml Vial 15 UNIT SUBQ HS Levothyroxine (Levothyroxine) 50 Mcg Tablet 50 MCG PO HS Montelukast (Montelukast) 10 Mg Tablet 10 MG PO HS Nortriptyline (Nortriptyline) 25 Mg Capsule 25 MG PO HS Omeprazole (Omeprazole) 20 Mg Capsule.dr 20 MG PO DAILYWD Paroxetine (Paroxetine) 40 Mg Tablet 40 MG PO HS Pravastatin (Pravastatin) 80 Mg Tablet 80 MG PO DAILYWD Ropinirole (Ropinirole) 0.25 Mg Tablet 0.25 MG PO DAILY Scheduled PRN ([Capsaicin]) 1 APPLIC/0.25 GM CREAM 1 APPLIC TOPICAL PRN PRN PRN For Pain Clonazepam (Clonazepam) 0.5 Mg Tablet 0.125 MG PO BID PRN PRN For Anxiety Lactulose (Lactulose) 20 Gm/30 Ml Solution 20 GM PO DAILY PRN PRN For Constipation Ondansetron ODT (Ondansetron ODT) 4 Mg Tab.rapdis 4 MG PO Q6H PRN PRN For Nausea Oxycodone (Roxicodone) 5 Mg Tablet 5 MG PO Q12H PRN PRN For Pain Prochlorperazine Maleate (Prochlorperazine) 5 Mg Tablet 5 MG PO Q8 PRN PRN For Nausea/Vomiting hydrOXYzine Hcl (HydrOXYzine Hcl) 25 Mg Tablet 12.5-25 MG PO Q4-6H PRN PRN For Itching Miscellaneous Medications Insulin Aspart (NovoLOG U100 Insulin Vial) 100 U/Ml U 1 UNIT SUBQ General Time Seen by MD: 20:11 Past Medical History Past Medical History Hypothyroid Gastroparesis Hypertension Asthma ESRD on hemodialysis (, , Sat) Diabetes Chronic nausea on Reglan Tardive dyskinesia from chronic Reglan use Chronic shortness of breath Anxiety Depression Past Surgical History Cataract AV fistula Smoking History Former Smoker Social History Alcohol Use: Denies alcohol use Drug Use: Denies drug use Ambulatory Status Independent Physical Exam Vital Signs Vital Signs Date Time Temp Pulse Resp B/P Pulse Ox O2 Delivery O2 Flow Rate FiO2 11/10/16 19:12 37 95 20 140/67 99 Room Air Discharge & Departure Referrals: Neal Burks MD (PCP) Dominic Bullock MD Nov 10, 2016 20:12
--- NOTE | 2016-11-10 21:03 | ED.REPORT ---
HPI-General Illness Date of Service Nov 10, 2016 ED Provider: Jamal Gallo DO Patient is a 61 year old female with a history of diabetes, ESRD and hypertension who presents to the ED due to a needle breaking off into her abdomen. She denies any pain at this time. Patient reports that while trying to inject her insulin earlier today, the needle broke off in the lower quadrant of her abdomen but is uncertain of the exact location. Nursing Notes Stated Complaint: INSULIN NEEDLE BROKE OFF IN STOMACH Chief Complaint: General Complaint Nursing Notes Reviewed: Yes Allergies: Coded Allergies: codeine (Verified Allergy, Mild, 06/14/16) hydrocodone (Verified Allergy, Unknown, 06/14/16) Scheduled Aspirin (Aspirin) 81 Mg Tablet 81 MG PO DAILY Bupropion ER (Wellbutrin XL) 150 Mg Tab.er.24h 150 MG PO Q48H Carvedilol (Carvedilol) 6.25 Mg Tablet 6.25 MG PO DAILY Clindamycin (Clindamycin) 150 Mg Capsule 150 MG PO QID Clindamycin (Clindamycin) 300 Mg Capsule 300 MG PO QID Gabapentin (Neurontin) 100 Mg Capsule 100 MG PO TID Insulin Glargine (Lantus U100 Insulin Vial) 100 Unit/Ml Vial 15 UNIT SUBQ HS Levothyroxine (Levothyroxine) 50 Mcg Tablet 50 MCG PO HS Montelukast (Montelukast) 10 Mg Tablet 10 MG PO HS Nortriptyline (Nortriptyline) 25 Mg Capsule 25 MG PO HS Omeprazole (Omeprazole) 20 Mg Capsule.dr 20 MG PO DAILYWD Paroxetine (Paroxetine) 40 Mg Tablet 40 MG PO HS Pravastatin (Pravastatin) 80 Mg Tablet 80 MG PO DAILYWD Ropinirole (Ropinirole) 0.25 Mg Tablet 0.25 MG PO DAILY Scheduled PRN ([Capsaicin]) 1 APPLIC/0.25 GM CREAM 1 APPLIC TOPICAL PRN PRN PRN For Pain Clonazepam (Clonazepam) 0.5 Mg Tablet 0.125 MG PO BID PRN PRN For Anxiety Lactulose (Lactulose) 20 Gm/30 Ml Solution 20 GM PO DAILY PRN PRN For Constipation Ondansetron ODT (Ondansetron ODT) 4 Mg Tab.rapdis 4 MG PO Q6H PRN PRN For Nausea Oxycodone (Roxicodone) 5 Mg Tablet 5 MG PO Q12H PRN PRN For Pain Prochlorperazine Maleate (Prochlorperazine) 5 Mg Tablet 5 MG PO Q8 PRN PRN For Nausea/Vomiting hydrOXYzine Hcl (HydrOXYzine Hcl) 25 Mg Tablet 12.5-25 MG PO Q4-6H PRN PRN For Itching Miscellaneous Medications Insulin Aspart (NovoLOG U100 Insulin Vial) 100 U/Ml U 1 UNIT SUBQ General Time Seen by MD: 21:03 Chief Complaint Other (needle broke in abdomen) Hx Obtained From: Patient Arrived By: Walk-in Sudden in Onset?: Yes Onset Occurred: Just prior to arrival Symptom Duration: Since onset Location: : Abdomen Severity: Current: No pain currently Recent Healthcare: Recent doctor visit, Recent hospitalization Similar Sx Previous: No Past Medical History Past Medical History Hypothyroid Gastroparesis Hypertension Asthma ESRD on hemodialysis (, , Sat) Diabetes Chronic nausea on Reglan Tardive dyskinesia from chronic Reglan use Chronic shortness of breath Anxiety Depression Past Surgical History Cataract AV fistula Smoking History Former Smoker Social History Alcohol Use: Denies alcohol use Drug Use: Denies drug use Other Social History: Good social support Ambulatory Status Independent Review of Systems Full Review of Systems Constitutional: Denies: Chills, Fever Respiratory: Denies: Non-productive cough, Shortness of breath GI: Denies: Abdominal pain Skin: Denies Itching, Denies Rash Complete sys rev & neg: except as marked. Physical Exam Vital Signs Vital Signs Date Time Temp Pulse Resp B/P Pulse Ox O2 Delivery O2 Flow Rate FiO2 11/10/16 21:59 96 18 136/74 94 Room Air 11/10/16 19:12 37 95 20 140/67 99 Room Air Initial VS: Reviewed General/Constitutional: Awake, Alert, No acute distress Appearance / Presentation: Positive: Obese Head / Eyes: Atraumatic, Normocephalic Respiratory / Chest: Atraumatic, Breath sounds NL, Breath sounds = bilat, No respiratory distress Cardiovascular: Heart rate NL, Regular rhythm, Heart sounds NL Abdomen: Atraumatic, Soft, Non-tender Skin: Atraumatic, Color NL, No rash, Warm, Dry Neurologic: Oriented X3, Speech NL, No motor deficits, No sensory deficits Psychiatric: Affect NL, Mood NL Interpretation & Diagnostics Interpretation & Diagnostics: ABDOMEN KUB XRAY: IMPRESSION: 1. No discrete radiopaque foreign body identified in the visualized abdomen. Dictated by: Edouard Blanco M.D. on 11/10/2016 at 21:12 Approved by: Edouard Blanco M.D. on 11/10/2016 at 21:20 X-Ray Chest Interpretation Chest Xray Interpretation: X-Ray Abdominal Interpretation IMPRESSION: 1. Linear foreign body demonstrated within the abdominal wall as described. Dictated by: Edouard Blanco M.D. on 11/10/2016 at 22:08 Approved by: Edouard Blanco M.D. on 11/10/2016 at 22:12 Re-Eval/Medical Decision Med Decision/Clinical Course Consulted with Dr. Petit. She will arrange to have the foreign body identified by ultrasound and surgical intervention. We will place her on Keflex in the meantime. I was unable to palpate the foreign body whatsoever. Time of Eval: 21:00 Re-Evaluation/Progress Note: Discussed plan for a repeat X-ray showing a different angle since we were unable to see a needle in the first X-ray. Time of Eval: 21:36 Re-Evaluation/Progress Note: Discussed second X-ray result that showed the needle and plan to consult a surgeon. Time of Eval: 21:44 Re-Evaluation/Progress Note: Discussed plan for discharge. Patient understands and agrees to plan. All questions were addressed. Consultation : Referral / Consult Name: Alison Petit MD Consulted With: Surgeon Call Returned at: 21:39 Commissary Superintendent: Agrees with eval, Agrees with plan Note: Consult with Dr. Petit, surgeon, who recommends the patient Counseled Regarding: Diagnosis, Lab results, Need for follow-up, When/why to return to ED Discharge & Departure Primary Impression: Needle stick injury Encounter type: initial encounter Qualified Code: W27.3XXA - Contact with needle (sewing), initial encounter Disposition: Home Discharge Condition All VS Reviewed: Yes Condition: Stable Additional Instructions: The X-ray did show that there is a needle in your abdomen. Follow up with the surgical clinic on Saturday to schedule an appointment to have the needle removed. Let them know that you were seen at the ED and we consulted with Dr. Petit and the X-ray showed you have a metallic foreign body in your subcutaneous tissue that should be removed. Take Keflex 3x daily for 5 days. Return to the emergency department if you develop any new or concerning symptoms including signs of infection; redness, increasing pain or swelling. Referrals: Neal Burks MD (PCP) Alison Petit MD Attestation Portions of this note were transcribed by Kareen Merida. I, Dr. Gallo personally performed the history, physical exam and medical decision-making; I reviewed and confirmed the accuracy of the information in the transcribed note. Signed by: Kiel Collier, 11/10/16 and 2109 copies to: Neal Burks MD; Alison Petit MD, Todd P DO Nov 10, 2016 21:03 Rosetta Merida Nov 10, 2016 21:10
--- NOTE | 2016-11-10 21:22 | DRSVH ---
PROCEDURE: X-RAY KUB ([id number]) INDICATIONS: insulin needle broke off in abdomen TECHNIQUE: One view of the abdomen acquired. COMPARISON: None. FINDINGS: Surgical changes and devices: None. Bowel: Bowel gas pattern is normal. Soft tissues: No discrete radiopaque foreign body identified within the visualized abdomen. No susp icious abdominal calcifications. Bones: No suspicious bony lesions. IMPRESSION: 1. No discrete radiopaque foreign body identified in the visualized abdomen. Dictated by: Edouard Blanco M.D. on 11/10/2016 at 21:12 Approved by: Edouard Blanco M.D. on 11/10/2016 at 21:20
[2016-11-10 21:59] VITALS: BP 136/74; PULSE 96; RESP 18; O2SAT 94
--- NOTE | 2016-11-10 22:14 | DRSVH ---
PROCEDURE: X-RAY ABDOMEN, ONE VIEW ([id number]) INDICATIONS: possible foreign body TECHNIQUE: 3 views of the lower abdominal wall were obtained. COMPARISON: [facility], CR, XR KUJoe, 11/10/2016, 20:08. FINDINGS: There is a linear foreign body measuring approximately 0.8 cm within the abdominal wall of the left l ower quadrant approximately 3-4 cm caudal to the BB marker on the upright views. IMPRESSION: 1. Linear foreign body demonstrated within the abdominal wall as described. Dictated by: Edouard Blanco M.D. on 11/10/2016 at 22:08 Approved by: Edouard Blanco M.D. on 11/10/2016 at 22:12
== END 2016-11-10 21:58 | disposition home or self-care (01) ==
LOC: SED 19:09
DX: S31.144A Puncture wound of abdominal wall with foreign body, left lower quadrant without penetration into peritoneal cavity, initial encounter (principal); I12.0 Hypertensive chronic kidney disease with stage 5 chronic kidney disease or end stage renal disease; E11.22 Type 2 diabetes mellitus with diabetic chronic kidney disease; N18.6 End stage renal disease; E11.43 Type 2 diabetes mellitus with diabetic autonomic (poly)neuropathy; Z99.2 Dependence on renal dialysis; J45.909 Unspecified asthma, uncomplicated; Z87.891 Personal history of nicotine dependence; F41.8 Other specified anxiety disorders; E03.9 Hypothyroidism, unspecified; Z79.82 Long term (current) use of aspirin; Z79.4 Long term (current) use of insulin; Z79.2 Long term (current) use of antibiotics; Z79.891 Long term (current) use of opiate analgesic; W27.3XXA Contact with needle (sewing), initial encounter; Y93.89 Activity, other specified; Y99.8 Other external cause status; Y92.9 Unspecified place or not applicable; Z88.5 Allergy status to narcotic agent

== ENCOUNTER 2016-11-29 11:39 | Day surgery (SDC) | payer MEDICARE, OTHER ==
--- NOTE | 2016-11-28 17:05 | PCM.ANEPRE ---
Anesthesia Pre-Op Review Reason for Review: EF 30-35%, on home oxygen, Betablockers and insulin depedent DM Anesthesia Recommendations: Proceed with Procedure Additional Comments 61 yo F with severe medical comorbidities scheduled for retained insulin injection needle excision under MAC. Patient with EF 30%, CAD, DMII, ESRD on hemodialysis, O2 dependent lung disease. Fortunately, per Dr. Petit's notes this procedure can be done under sedation with local anesthesia. Given this, OK to proceed without further workup. Chart Reviewed by: Germán Garrison MD Nov 28, 2016 17:05
[~2016-11-29] VITALS: Ht 160 cm; Wt 75.6 kg
--- NOTE | 2016-11-29 08:03 | PCM.HPANE ---
Patient Data Surgeon Admitting Provider: Attending Provider:Alison Petit MD Primary Care Physician:Neal Burks MD Other Provider:Tammy Carrasco Anesthesia Reason for Visit Retained Foreign Body Abdominal Wall Ht/WT & BMI Height (Feet): 5 Height (Inches): 3 Weight (Kilograms): 74.84 Body Mass Index 29.00 Allergies Coded Allergies: codeine (Verified Allergy, Mild, 11/28/16) hydrocodone (Verified Allergy, Unknown, 11/28/16) Past Anesthesia History Anesthesia History: Denies:: Abnormal Airway, Anesthesia Reactions, Difficult Intubation, Fam Anesthesia Reaction, Fam Malignant Hypertherm, Malignant Hyperthermia Diabetes History Hx Diabetes?: Yes (IDDM 1990) Type of Diabetes: Type II Glycemic Control: Insulin Dependent MRSA MRSA: No Medications Blood Thinner: Aspirin Last Dose Blood Thinner: Nov 27, 2016 Hypertension Medication: Yes (Carvedilol) Home Meds Incl Beta [place]: Yes Active Scripts Oxycodone (Roxicodone)5 Mg Tablet5 Mg PO Q12H PRN For Pain #10 TABLET Ref 0 Prov:Antonette Washington DO 11/07/16 Lactulose 20 Gm/30 Ml Frklwnso71 Gm PO DAILY PRN For Constipation 14 Days Prov:Antonette Washington DO 11/07/16 Insulin Glargine (Lantus U100 Insulin Vial)100 Unit/Ml Vial15 Unit SUBQ HS 14 Days Prov:Antonette Washington DO 11/06/16 Gabapentin (Neurontin)100 Mg Bhhsdya493 Mg PO TID 14 Days Prov:Antonette Washington DO 11/06/16 Reported Medications Albuterol HFA (Proair HFA)8.5 Gm Hfa.aer.ad2 Puffs INHALATION Q4H #1 INHALER 11/28/16 Paroxetine 40 Mg Kqchkn86 Mg PO HS 30 Days Ref 0 11/28/16 oxyCODONE 5 Mg Capsule5 Mg PO Q4H PRN For Pain Ref 0 11/28/16 Polyethylene Glycol 3350 (Miralax)17 Gm Powd.pack17 Gm PO 11/28/16 Meclizine (Bonine)25 Mg Tab.chew25 Mg PO 11/28/16 Furosemide (Lasix)20 Mg Iqqavk38 Mg PO BID 30 Days Ref 0 11/28/16 Capsaicin 42.5 Gm Cream..g.42.5 Gm TP 11/28/16 Bupropion ER 150 Mg Tablet.er150 Mg PO BID Ref 0 11/28/16 diphenhydrAMINE HCl (Benadryl)25 Mg Kyunnna08 Mg PO HS PRN For Itching Ref 0 11/28/16 Clonazepam 0.5 Mg Tablet0.125 Mg PO BID PRN For Anxiety Ref 0 10/31/16 hydrOXYzine Hcl (HydrOXYzine Hcl)25 Mg Mssxko25.5-25 Mg PO Q4-6H PRN For Itching 10/30/16 Pravastatin 80 Mg Xezinz79 Mg PO DAILYWD Ref 0 10/30/16 Carvedilol 6.25 Mg Tablet6.25 Mg PO DAILY Ref 0 10/30/16 Levothyroxine 50 Mcg Flflmg14 Mcg PO HS Ref 0 03/28/15 Paroxetine 40 Mg Oaweaj04 Mg PO HS 30 Days Ref 0 03/28/15 Prochlorperazine Maleate (Prochlorperazine)5 Mg Tablet5 Mg PO Q8 PRN For Nausea/ Vomiting Ref 0 03/28/15 Omeprazole 20 Mg Capsule.dr20 Mg PO DAILYWD Ref 0 03/28/15 Aspirin 81 Mg Pydntx76 Mg PO DAILY Ref 0 03/28/15 Insulin Aspart (NovoLOG U100 Insulin Vial)100 U/Ml U1 Unit SUBQ #1 VIAL Ref 0 03/28/15 Discontinued Reported Medications Ondansetron ODT 4 Mg Tab.rapdis4 Mg PO Q6H PRN For Nausea 10/31/16 Ropinirole 0.25 Mg Tablet0.25 Mg PO DAILY Ref 0 03/28/15 Nortriptyline 25 Mg Rtpmdlt22 Mg PO HS 03/28/15 Montelukast 10 Mg Izamoc88 Mg PO HS Ref 0 03/28/15 Discontinued Scripts Clindamycin 300 Mg Hoithrc447 Mg PO QID #21 CAPSULE Ref 0 Prov:Antonette Washington DO 11/07/16 Clindamycin 150 Mg Wazoxmo594 Mg PO QID #21 CAPSULE Ref 0 Prov:Antonette Washington DO 11/07/16 [Capsaicin] (Trixaicin 0.025% Cream)1 APPLIC/0.25 GM CREAM No Conflict Check1 Applic TOPICAL PRN PRN For Pain 14 Days Prov:Antonette Washington DO 11/06/16 Bupropion ER (Wellbutrin XL)150 Mg Tab.er.27g218 Mg PO Q48H 14 Days Prov:Antonette Washington DO 11/06/16 History History of ENT Problems?: Yes HEENT History: Denies:: Abnormal Airway Cataracts (Removed both eyes) Difficult Intubation Dysphagia Hearing Problem Sinus Problem TMJ Denture Type: None Teeth Condition: Within Normal Limits Hx of Heart Problems?: Yes Cardiovascular History: Positive for:: Cardiac Surgery (2012) Coronary Artery Disease Hypertension Denies:: Abdominal Aortic Aneurism Atrial Fibrillation Chest Pain Congestive Heart Failure Edema Heart Murmur Irregular Heartbeat Pacemaker Rheumatic Fever Valvular Heart Disease Hx of Respiratory Problem?: Yes Respiratory History: Positive for:: Asthma Dyspnea (on exertion) Oxygen Administration (2.5 lpm) Pneumonia Use of Inhalers / NEBS Denies:: COPD Chest Surgery Cough Emphysema Hemoptysis Pulmonary Embolism Tuberculosis Use of C-PAP Machine Hx Neurologic Problems?: Yes Neurological History: Positive for:: Dizziness Denies:: Alzheimer's Disease CVA Dementia Headaches Multiple Sclerosis Parkinson's Disease Seizures TIA Hx of GI Problems?: No Other GI Pertinent History: spot on liver currently being worked up Hx of Problems?: Yes Genitourinary History: Positive for:: HX of Hemodialysis (,,SAT-- SINCE MAY) Denies:: Kidney Stones Urinary Tract Infection HX of Peritoneal Dialysis: No Female Hx: Denies:: Currently Problems with Breasts? Skin History: Denies:: History Skin Disorders? Pressure Ulcers Hx Musculoskeletal Problems?: No Musculoskeletal History: Positive for:: Musculoskeletal Trauma (fell in bathroom, bruise on left side) Denies:: Back Injury Degenerative Joint Fibromyalgia Joint Replacement Myasthenia Gravis Osteoarthritis Rheumatoid Arthritis Systemic Lupus Hx of Psycho/Social Problems?: Yes Psycho Social History: Positive for:: Anxiety (family related) Hx Depression Denies:: Suicide Attempt Hx Surgeries?: Yes (FISTULA L arm) Hx Any Other Health Problems?: Yes Other History: Positive for:: Hospitalization Thyroid Disease (hypo) Denies:: Cancer History Blood Transfusions: Denies:: Accept Blood Products? Blood Transfuse Reaction Blood Transfusions Hx Diabetes: Yes (IDDM 1990) Hx Alcohol Use: NoHx Substance Use: No Smoking Status: Former Smoker Have You Smoked inLast 12 mo: No Stop/Bang S-Snoring: Do You Snore Loudly: No T-Tired: feel tired, fatigued: Yes O-Obsered: Observed not breath: No P-Blood Pressure: treated: Yes B- Body Mass Index > 35 kg/m2: No A- Age over 50: Yes N- Neck Large Circumference: No G- Gender Male: No RON Total Score: 3 RON Risk Assessment: High Risk, =/>3 Yes RON Category 4 OutPt Procedure: Yes Risk Assessment Category Category 1A: Patient has history of documented sleep apnea, and HAS NOT received any narcotic, sedative or anesthesia administration during this stay. Category 1B: Patient has history of documented sleep apnea, and HAS received any narcotic , sedative or anesthesia administration during this stay Category 2: Patient has SUSPECTED Obstructive Sleep Apnea, and HAS received any narcotic , sedative or anesthesia administration during this stay. Category 3: Patient has SUSPECTED Obstructive Sleep Apnea and HAS NOT received narcotic, sedative or anesthesia administration during this stay. Category 4: Outpatient in Procedural Areas with known sleep apnea or who screen positive for High Risk via the STOP/BANG questionnaire. Exam Exam General Appearance: Alert, Oriented X3, Cooperative, No Acute Distress HEENT/AIRWAY: MP 2 Lungs: Clear to Auscultation, Normal Air Movement Heart: Exam Unremarkable, Regular Rate/Rhythm, No Murmurs/Rubs/Gallops Plan Impression Patient chart reviewed, patient interviewed and anesthestic plan with risks, benefits, and alternatives discussed, and informed consent obtained. ASA Physical Status: ASA3 Severe Disease (DM) Anesthetic Plan: GA Bene/Risks/Altern/Consents: Yes HP Complete Prior to Induction: Yes Gael Rolle MD Nov 29, 2016 08:03
[~2016-11-29 11:39] MED LIST changes: +ALBU8.5H2 INHALATION; -BUPR-97 PO; +BUPR150T12 PO; +CAPS42.58 TP; -CLIN-77 PO; -CLIN-78 PO; -Capsaicin TOPICAL; +DIPH25CA6 PO; +Dexamethasone 4 mg/mL Inj IVPUSH PRN; +EPHEDrine Sulfate 50 mg/mL Inj IVPUSH PRN; +FURO-129 PO; +Lactated Ringer's 1,000 ML IV SCH; +Lactated Ringer's 500 ML IV PRN; +MECL-114 PO; -MONT10TA23 PO; +MetoCLOpramide 5 mg/mL 2 mL Inj IVPUSH PRN; -NORT25CA PO; -ONDA4TAB12 PO; +OXYC5CAP4 PO; +Ondansetron 2 mg/mL 2 mL Inj IVPUSH PRN; +POLY17PO6 PO; +Phenylephrine 10,000 mCg/mL Inj IVPUSH PRN; -ROPI0.252 PO; +fentaNYL-PF 50 mCg/mL 2 mL Inj IVPUSH PRN
[2016-11-29] MEDS ORDERED: fentaNYL-PF 50 mCg/mL 2 mL Inj ONE (11:40)
[2016-11-29] MEDS ORDERED: Propofol 10,000 mCg/mL 20 mL Inj ONE (11:40)
[2016-11-29 12:21] VITALS: BP 124/92; PULSE 84; RESP 18; O2SAT 93
[2016-11-29] MEDS ORDERED: 0.9% Sodium Chloride 500 ML IV ONE (13:00)
[2016-11-29] MEDS ORDERED: Bupivacaine-MPF 0.25% 30 mL Inj INFILTRATE ONE (17:47)
--- NOTE | 2016-11-29 18:52 | DRSVH ---
CORRECTED ORDERING PROVIDER ON 12/04/16 PROCEDURE: X-RAY ABDOMEN WITH ERECT AND/OR DECUBITUS VIEWS ([id number]) INDICATIONS: FORIEGN BODY TECHNIQUE: 2 views of the abdomen were acquired. COMPARISON: 11/10/2016. FINDINGS: Surgical changes and devices: None. Bowel: No pneumoperitoneum. The bowel gas pattern is normal. Soft tissues: No masses; visualized solid organ contours appear normal in size. No suspicious abdom inal calcifications. Previously noted linear radiopaque foreign body within the patient's pannus is not identified. Bones: No suspicious bony abnormalities. IMPRESSION: 1. Previously noted linear radiopaque foreign body in the patient's pannus is not identified. However , the study is performed with portable technique which may obscure the finding. Recommend followup ab dominal radiographs. If the linear radiopacity is again identified, it could be more accurately local ized at the time of radiography and the skin marked for an immediate surgical procedure. 2. Findings discussed by telephone ([phone]) with OLIVIA Saldana at 18:50 on 11/29/2016. Dictated by: Anthony Cuadra M.D. on 11/29/2016 at 18:43 Approved by: Anthony Cuadra M.D. on 11/29/2016 at 18:50
[2016-11-29 18:56] VITALS: BP 127/78; PULSE 75; RESP 16; O2SAT 100
[2016-11-29 18:59] VITALS: BP 110/90; PULSE 75; RESP 16; O2SAT 98
--- NOTE | 2016-11-29 18:59 | PCM.ANEP1 ---
Post Anesthesia PACU Phase 1 Assessment Vital Signs Vital Signs Date Time Temp Pulse Resp B/P Pulse Ox O2 Delivery O2 Flow Rate FiO2 11/29/16 12:21 36.5 84 18 124/92 93 Room Air Anesthetic Administered: MAC Level of Alertness: Awake, talking Pain: No Nausea or Vomiting: No CV Function & Hydration Stable: Yes Airway Device: Oxygen Delivery: Simple Mask Lungs: Clear to Auscultation, Normal Air Movement Dermatome Level: Full Sensation PACU Phase 2 Assessment Complications: No Patient Instructions Provided: N/A Socrates Crawford MD Nov 29, 2016 18:58
--- NOTE | 2016-11-29 22:06 | PCM.SURGPO ---
Immediate Operative Note Date of Surgery: Nov 29, 2016 Pre Operative Diagnosis Abdominal wall foreign body Post Operative Diagnosis No Abdominal wall foreign body Procedure Fluoroscopy with interpretation Surgeon and Science Analyst Surgeon: Yasmin Mariano MD Findings No foreign body detected on fluoroscopy and portable radiographs Complications There were no periprocedural complications identified. Surgical Specimen Removed: No Specimen sent to Pathology: No Anesthetic Administered: MAC Grafts, Implants: None Output, Estimated Blood Loss: 0 Blood Admin during surgery: No Yasmin Mariano MD Nov 29, 2016 22:06
--- NOTE | 2016-11-29 22:51 | OP ---
[address] [address] OPERATIVE REPORT PATIENT: SHANTE MORA : 1955 MR#: [id number] ADMIT: 11/29/2016 JOB ID: [id number] DATE OF SURGERY: 11/29/2016 PREOPERATIVE DIAGNOSIS(ES): Abdominal wall foreign body. POSTOPERATIVE DIAGNOSIS(ES): No abdominal wall foreign body. PROCEDURE PERFORMED: Fluoroscopy with interpretation. SURGEON: Yasmin Mariano MD. INDICATIONS: The patient is a 61-year-old lady who presented to my partner, Dr. Petit, with reportedly insulin needle that broke off in her abdominal wall. She had an abdominal x-ray on November 10 which documented this for its presence and Dr. Petit tried to remove it with ultrasound help in the clinic yesterday and she was unable to find it and she is scheduled to take care of it with intraoperative fluoroscopy today, but because of scheduling issues she asked me to take over her care and the patient consented for me to help. PROCEDURE DETAILS: She was taken to the operating room, underwent sedation and the abdomen was prepped and draped in the usual sterile fashion and after that we used C-arm fluoroscopy to try and visualize this needle. We were not successful. At that point, we pulled the drapes down and repositioned the patient lower on the bed and again tried repeatedly without any benefit to find the needle that we could see on x-ray 20 days ago. At that point. I put some paper clips on her skin as markers and obtained portable radiographs, AP and lateral, and upon discussion with the radiologist we could still not identify the needle. At that point, we decided to terminate the procedure. She tolerated the sedation without any problems and was taken back to the recovery room in stable condition.
== END 2016-11-29 23:59 | disposition home or self-care (01) ==
LOC: SAS 11:39
PROVIDERS: ATTEND Student in an Organized Health Care Education/Training Program
DX: S30.851A Superficial foreign body of abdominal wall, initial encounter (principal); E11.9 Type 2 diabetes mellitus without complications; I25.10 Atherosclerotic heart disease of native coronary artery without angina pectoris; I11.0 Hypertensive heart disease with heart failure; J45.909 Unspecified asthma, uncomplicated; R42 Dizziness and giddiness; F41.9 Anxiety disorder, unspecified; Z88.5 Allergy status to narcotic agent; Z79.4 Long term (current) use of insulin; Z79.82 Long term (current) use of aspirin; Z79.899 Other long term (current) drug therapy; Z87.891 Personal history of nicotine dependence
CPT/HCPCS: 74010; 76000; J3010; J7030

== ENCOUNTER 2016-12-08 16:27 | Emergency (ER) | payer MEDICARE, OTHER ==
[~2016-12-08 16:27] MED LIST changes: -Dexamethasone 4 mg/mL Inj IVPUSH PRN; -EPHEDrine Sulfate 50 mg/mL Inj IVPUSH PRN; -Lactated Ringer's 1,000 ML IV SCH; -Lactated Ringer's 500 ML IV PRN; -MetoCLOpramide 5 mg/mL 2 mL Inj IVPUSH PRN; -Ondansetron 2 mg/mL 2 mL Inj IVPUSH PRN; -Phenylephrine 10,000 mCg/mL Inj IVPUSH PRN; -fentaNYL-PF 50 mCg/mL 2 mL Inj IVPUSH PRN
[2016-12-08 16:36] VITALS: BP 120/49; PULSE 73; RESP 24; O2SAT 90
--- NOTE | 2016-12-08 17:06 | ED.REPORT ---
HPI-Dyspnea / Wheezing Date of Service Dec 08, 2016 ED Provider: Young Garcia MD Pt is a 61 y/o female w/ a hx of asthma, COPD on chronic 2.5 L home O2, ESRD on HD, HTN, IDDM, presenting to the ED c/o shortness of breath and cough onset about 1 week ago. The patient was recently admitted on October 30 to [facility] for cough and shortness of breath thought to be secondary to pleural effusions. She has been experiencing the same symptoms for the past 1 week and went to a walk in clinic at [place] today and was told she had acute pulmonary edema and therefore was told to come to the ED. She is chronically on 2.5 L oxygen at home and there has been no recent changes. There has been an 80 pound recent weight loss and apparently there is an underlying concern for possible liver malignancy and the patient is undergoing a workup for which the patient apparently had a CT scan of the liver done yesterday. She denies fever, chills, abdominal pain. Nursing Notes Stated Complaint: FLUID IN LUNGS Chief Complaint: Respiratory Complaints Nursing Notes Reviewed: Yes (Metafused not reconciled) Allergies: Coded Allergies: codeine (Verified Allergy, Mild, 12/08/16) hydrocodone (Verified Allergy, Unknown, 12/08/16) Scheduled Albuterol HFA (Proair HFA) 8.5 Gm Hfa.aer.ad 2 PUFFS INHALATION Q4H Aspirin (Aspirin) 81 Mg Tablet 81 MG PO DAILY Bupropion ER (Bupropion ER) 150 Mg Tablet.er 150 MG PO BID Carvedilol (Carvedilol) 6.25 Mg Tablet 6.25 MG PO DAILY Furosemide (Lasix) 20 Mg Tablet 20 MG PO BID Gabapentin (Neurontin) 100 Mg Capsule 100 MG PO TID Insulin Glargine (Lantus U100 Insulin Vial) 100 Unit/Ml Vial 15 UNIT SUBQ HS Levothyroxine (Levothyroxine) 50 Mcg Tablet 50 MCG PO HS Omeprazole (Omeprazole) 20 Mg Capsule.dr 20 MG PO DAILYWD Paroxetine (Paroxetine) 40 Mg Tablet 40 MG PO HS Paroxetine (Paroxetine) 40 Mg Tablet 40 MG PO HS Pravastatin (Pravastatin) 80 Mg Tablet 80 MG PO DAILYWD Scheduled PRN Benzonatate (Tessalon Perle) 100 Mg Capsule 100 MG PO TID PRN PRN For Cough Clonazepam (Clonazepam) 0.5 Mg Tablet 0.125 MG PO BID PRN PRN For Anxiety Lactulose (Lactulose) 20 Gm/30 Ml Solution 20 GM PO DAILY PRN PRN For Constipation Oxycodone (Roxicodone) 5 Mg Tablet 5 MG PO Q12H PRN PRN For Pain Prochlorperazine Maleate (Prochlorperazine) 5 Mg Tablet 5 MG PO Q8 PRN PRN For Nausea/Vomiting diphenhydrAMINE HCl (Benadryl) 25 Mg Capsule 25 MG PO HS PRN PRN For Itching hydrOXYzine Hcl (HydrOXYzine Hcl) 25 Mg Tablet 12.5-25 MG PO Q4-6H PRN PRN For Itching oxyCODONE (oxyCODONE) 5 Mg Capsule 5 MG PO Q4H PRN PRN For Pain Miscellaneous Medications Capsaicin (Capsaicin) 42.5 Gm Cream..g. 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 October 2016: EF 30-35%, flat and septum without RV pressure overload, dyskinetic septum in the anterior septal wall with severe hypokinesis and inferior hypokinesis and moderate mitral regurg, moderate to severe tricuspid regurg Past Medical History COPD on 2.5 L home O2 Hypothyroid Gastroparesis Hypertension Asthma ESRD on hemodialysis (, , Sat) Insulin dependent diabetes Chronic nausea on Reglan Tardive dyskinesia from chronic Reglan use Chronic shortness of breath Anxiety Depression CHF Past Surgical History Cataract AV fistula Smoking History Former Smoker Social History Alcohol Use: Denies alcohol use Drug Use: Denies drug use Other Social History: Good social support Ambulatory Status Independent Review of Systems Constitutional: Reports: Recent wt loss, Denies: Chills, Fever Respiratory: Reports: Non-productive cough, Shortness of breath Complete sys rev & neg: except as marked. GI: Denies: Abdominal pain Physical Exam Initial Vital Signs Vital Signs (First) Date Time Temp Pulse Resp B/P Pulse Ox O2 Delivery O2 Flow Rate FiO2 12/08/16 16:36 36.9 73 24 120/49 90 Room Air 12/08/16 20:23 2 Initial VS: Reviewed, Vital signs abnormal Head / Eyes: Atraumatic, Normocephalic, PERRL ENT: Mucous membranes moist, Conjunctiva normal, No scleral icterus Abdomen / GI: Soft, Non-tender, No distention Extremities: Vascular intact, Neuro intact, No swelling Skin: Warm, Dry, No cyanosis Psychiatric: Mood/affect normal, Behavior normal, Normal thought content General/Constitutional: Awake, Alert, Cooperative, Not toxic appearing Neck: Atraumatic, Supple, No meningismus, Full range of motion Respiratory / Chest: No respiratory distress, No retractions, No stridor Diminished breath sounds about the left base Cardiovascular: Heart rate NL, Regular rhythm Heart Sounds / Murmur: Positive: Systolic murmur present.. (IV/) Neurologic: Oriented X3, Speech NL, No motor deficits Movements typical of tardive dyskinesia present - records indicate this is chronic Interpretation & Diagnostics Lab Results Interpretation Result Diagram: 12/08/16 1755 12/08/16 1755 Test 12/08/16 17:55 12/08/16 18:41 White Blood Count 4.5th/mm3 (3.8-10.1) Red Blood Count 4.60mil/mm3 (3.90-5.20) Hemoglobin 12.4g/dL (12.0-15.6) Hematocrit 38.6% (35.0-46.0) Mean Corpuscular Volume 83.9fL (81-100) Mean Corpuscular Hemoglobin 27.0pg (27.0-35.0) Mean Corpuscular Hemoglobin Concent 32.1% (32.0-37.0) Red Cell Distribution Width 18.7% (12.3-15.4) Platelet Count 157bil/L (150-400) Neutrophils (%) (Auto) 63.9% (40-74) Lymphocytes (%) (Auto) 20.9% (14-46) Monocytes (%) (Auto) 13.7% (4-12) Eosinophils (%) (Auto) 0.9% (0-5) Basophils (%) (Auto) 0.4% (0-3) Prothrombin Time 12.5sec (8.1-12.5) Prothromb Time International Ratio 1.16ratio Sodium Level 131mEq/L (134-144) Potassium Level 4.2mEq/L (3.5-5.2) Chloride Level 89mEq/L (97-108) Carbon Dioxide Level 24mmol/L (18-29) Blood Urea Nitrogen 28mg/dL (8-27) Creatinine 2.47mg/dL (0.57-1.00) Estimat Glomerular Filtration Rate 28mL/min (>59) Glucose Level 117mg/dL (60-99) Calcium Level 9.7mg/dL (8.5-10.1) Total Bilirubin 2.5mg/dL (0.0-1.2) Aspartate Amino Transf (AST/SGOT) 34U/L (0-50) Alanine Aminotransferase (ALT/SGPT) 15U/L (0-32) Alkaline Phosphatase 409U/L (25-165) Troponin T 0.176ug/L (0.0-0.011) Total Protein 8.0g/dL (6.4-8.4) Albumin 3.8g/dL (3.4-5.0) Hold Eaton Top Tube Received (Received) Lab Results Interpretation: Labs and Imaging pending ECG Interpretation ECG Interpretation: Sinus rhythm with a rate of 80 No acute change Time: 20:39 Interpreted by: ED physician X-Ray Chest Interpretation Chest Xray Interpretation: IMPRESSION: Overall, unchanged appearance since 10/30/16. Persistent left lower lobe consolidative opacity and small left pleural effusion. Dictated by: Rios Welsh M.D. on 12/08/2016 at 18:20 View: Portable, 1 view Interpretation / Wet Read by: Interpret - Radiologist Re-Eval/Medical Decision Med Decision/Clinical Course This is a 61-year-old complex female recently hospitalized-please see the discharge summary he was referred in by the [facility] for shortness of breath and admission for pleural effusions. The patient has paperwork indicating there at the [facility], when I call-the clinic is closed and I am unable to get any additional information. The patient has a very complex presentation, has a recent hospitalization as CHF, chronic renal failure, and has had increasing cough and shortness of breath over the past week. However this is superimposed upon a chronic cough and chronic shortness of breath and having extreme difficulty, sorting out the severity of nature of her illness today. She reports no fevers. There has been an 80 pound recent weight loss and apparently an underlying concern for possible liver malignancy-temperature patient is under going and in the midst of a workup. The patient had dialysis this morning, but had a worsening cough and shortness of breath and went to urgent care at the [facility], had radiographs that were apparently concerning, and received a call to come to [facility] to be admitted. Aside from this had no further information. The patient is hypoxic, but apparently is on chronic O2 at 2 L at home. He is gone to being nonambulatory, she has orthopnea , but again it is that she does not have a fever. No leg edema. Usual chronic of movement. She has diminished breath sounds left base-but is not severely dyspneic. She has a moderate 4/6 heart murmur. I have attempted tinted records from [facility] to better understand the acute issues. However they are closed and not been able to obtain them. At this point repeat radiographs and labs are being attending. The patient be turned over to the oncoming provider at change of shift Dr. Mayers. Social talk about how she had liver imaging yesterday-however nothings in our system that I have access to, raising the possibility this too may been done down at the [facility]. Leah Mayers MDM: Complex patient with CC of cough. Referred here without any contact from an urgent care clinic- given concern for "fluid on lungs" likely this was pleural effusion. Our imaging shows stable pleural effusions without fluid overload. VS is are reassuring, O2 sats good when pt is on O2 as she should be. Has elevated troponin, this is not new and is related to renal faiure. Bili is noted to be trending up, she has ongoing workup for this and cough seems unlikely to be related to this. Tessalon was helpful for her cough. I do not find a new pneumonia or resp failure. Will DC on tessalon to follow up with primary care. Source of Hx: Old records Re-Evaluation/Progress #1: Time of Eval: 19:12 Re-Evaluation/Progress Note: Pt re-examed by Dr. Mayers. Pt reports non-productive cough with "tickle in throat," right-sided sore throat, nausea, and intermittent chest tightness onset 3 weeks ago. She denies fever, rhinorrhea, and vomiting. Pt reports that she had dialysis today, and presented to in [facility] for her symptoms. The pt is on O2 at home, but she denies using it currently because she c/o nose bleeds when she does. She deoes not currently us a humidifier or nasal spray. RESPIRATORY: Lungs are clear with dullness to percussion on both bases. THROAT: Pharynx is clear. No adenopathy. CARDIOVASCULAR: No JVD. Regular rate and rhythm without murmur or gallop. ABDOMINAL: Soft and non-tender with normal bowel sounds. Re-Evaluation/Progress #2: Time of Eval: 20:51 Re-Evaluation/Progress Note: Pt rechecked. Informed pt of plan for discharge. Pt understands and agrees with plan for discharge. F/U instructions and RTER warnings given. All questions addressed. Counseled Regarding: Diagnosis, Lab results, Need for follow-up, When/why to return to ED Discharge & Departure Impression: Primary Impression: Cough Disposition: Home Discharge Condition All VS Reviewed: Yes Condition: Stable Additional Instructions: Emergency department evaluation today included review, examination labs chest x- ray and ECG. No serious cause for cough is identified. Treatment with Tessalon seems to be helpful, this can be continued at home 1 up to 3 times a day as needed. Call your dialysis doctor on Saturday to inform them of this new medication. Return to emergency department for fevers, increasing shortness of breath and vomiting. Be sure to use oxygen at home as prescribed. Follow-up with primary care next week. Referrals: Neal Burks MD (PCP) Rajinder Solo MD Care Transferred to: Dr. Mayers Care Transferred at: 18:00 Scribe Attestation Portions of this note were transcribed by Bernabe Daniel. I, Dr. Garcia personally performed the history, physical exam and medical decision-making; I reviewed and confirmed the accuracy of the information in the transcribed note.1800 Portions of this note were transcribed by Karmen Carty. I, Dr. Mayers personally performed the history, physical exam and medical decision-making; I reviewed and confirmed the accuracy of the information in the transcribed note. Signed by : Kiel Blandon, 12/08/16. copies to: Neal Burks MD; Rajinder Solo MD, Matthew F MD Dec 08, 2016 17:06 BERNABE DANIEL Dec 08, 2016 17:07 Karmen Clemons Dec 08, 2016 19:17 Sergio Mayers MD Dec 08, 2016 20:53
[2016-12-08 18:14] LABS: BASOPHILS % (AUTO) 0.4 % (0-3); EOSINOPHILS % (AUTO) 0.9 % (0-5); MONOCYTES % (AUTO) 13.7 % (4-12); Mean Corpuscular Volume 83.9 fL (81-100); NEUTROPHILS % (AUTO) 63.9 % (40-74); Platelet Count 157 bil/L (150-400)
--- NOTE | 2016-12-08 18:26 | DRSVH ---
PROCEDURE: X-RAY CHEST ONE VIEW, PORTABLE ([id number]) INDICATIONS: SHORTNESS OF BREATH TECHNIQUE: One view of the chest was acquired. COMPARISON: [facility], CT, CT ANGIO CHEST PE, 10/30/2016, 14:49. [facility] , CR, XR CHEST 2VW, 10/30/2016, 11:45. FINDINGS: Surgical changes and devices: None. Lungs and pleura: No pneumothorax. There is blunting of the right costophrenic angle. Unchanged left lower lobe atelectasis and pleural effusion, unchanged appearance in 10/30/16 Mediastinum: Mediastinal contours appear normal. Heart size is normal. Bones and chest wall: No suspicious bony lesions. Overlying soft tissues appear unremarkable. IMPRESSION: Overall, unchanged appearance since 10/30/16. Persistent left lower lobe consolidative opacity and small left pleural effusion. Dictated by: Rios Welsh M.D. on 12/08/2016 at 18:20 Approved by: Rios Welsh M.D. on 12/08/2016 at 18:25
[2016-12-08 18:55] LABS: INR 1.16 ratio
[2016-12-08 19:29] LABS: TROPONIN T 0.176 ug/L (0.0-0.011)
[2016-12-08 20:23] VITALS: BP 145/59; PULSE 80; RESP 22; O2SAT 97
[2016-12-08] MEDS ORDERED: BENZ-12 PO (20:54)
[2016-12-08 21:27] VITALS: BP 123/65; PULSE 80; RESP 24; O2SAT 99
== END 2016-12-08 21:10 | disposition home or self-care (01) ==
LOC: SED 16:27
DX: R05 Cough (principal); I13.2 Hypertensive heart and chronic kidney disease with heart failure and with stage 5 chronic kidney disease, or end stage renal disease; E11.22 Type 2 diabetes mellitus with diabetic chronic kidney disease; I50.9 Heart failure, unspecified; N18.6 End stage renal disease; F41.8 Other specified anxiety disorders; E03.9 Hypothyroidism, unspecified; J44.9 Chronic obstructive pulmonary disease, unspecified; Z79.4 Long term (current) use of insulin; Z79.82 Long term (current) use of aspirin; Z99.2 Dependence on renal dialysis; Z87.891 Personal history of nicotine dependence; Z88.5 Allergy status to narcotic agent